=== PATIENT | female | born 1985 | race Two or more races ===

== ENCOUNTER → 2020-11-05 10:41 | Outpatient (BNVA) | payer MEDICAID, SELFPAY | PROVIDERS: PCP Pediatrics Pediatric Endocrinology; Visit Provider Advanced Practice Midwife | DX: Z76.89 Persons encountering health services in other specified circumstances (principal) ==

== ENCOUNTER → 2021-02-03 15:17 | Outpatient (BNVA) | payer MEDICAID, SELFPAY | PROVIDERS: PCP Internal Medicine; Visit Provider Advanced Practice Midwife | DX: Z30.41 Encounter for surveillance of contraceptive pills (principal) | CPT/HCPCS: 99212 ==

== ENCOUNTER 2021-03-11 15:03 | Outpatient (REF) | payer MEDICAID, SELFPAY ==
[2021-03-12 01:47] LABS: CT PCR NOT DETECTED (Not Detect.); NG PCR NOT DETECTED (Not Detect.)
== END 2021-03-11 15:04 | disposition home or self-care (01) ==
LOC: HO.LAB 15:03
PROVIDERS: PCP Internal Medicine; Visit Provider Advanced Practice Midwife
DX: Z01.419 Encounter for gynecological examination (general) (routine) without abnormal findings (principal); Z11.3 Encounter for screening for infections with a predominantly sexual mode of transmission; Z20.2 Contact with and (suspected) exposure to infections with a predominantly sexual mode of transmission
CPT/HCPCS: 87491; 87591

== ENCOUNTER → 2022-03-15 13:21 | Outpatient (BNVA) | payer MEDICAID, SELFPAY | PROVIDERS: PCP Internal Medicine; Visit Provider Advanced Practice Midwife | DX: Z13.89 Encounter for screening for other disorder (principal) ==

== ENCOUNTER 2023-03-17 14:18 | Outpatient (REF) | payer MEDICAID, SELFPAY ==
[2023-03-18 01:17] LABS: CT PCR NOT DETECTED (Not Detect.); NG PCR NOT DETECTED (Not Detect.)
[2023-03-18 03:08] LABS: Syphilis Screen Nonreactive (Nonreactive)
[2023-03-18 04:25] LABS: HBc Num1 0.08 S/CO (0.00-0.79); HIV AB/AG Nonreactive (Nonreactive); HIV Num 1 0.06 S/CO (0.00-0.99); Hepatitis B Core Antibody Nonreactive (Nonreactive); ~HepC Num1 0.19 S/CO (0.00-0.79); ~Hepatitis C Antibody Nonreactive (Nonreactive)
[2023-03-19 12:05] LABS: BV Int Neg Control Negative (Negative); BV Int Pos Control Positive (Positive)
== END 2023-03-17 14:19 | disposition home or self-care (01) ==
LOC: HO.LAB 14:18
PROVIDERS: PCP Internal Medicine; Visit Provider Advanced Practice Midwife
DX: Z11.4 Encounter for screening for human immunodeficiency virus [HIV] (principal); Z20.2 Contact with and (suspected) exposure to infections with a predominantly sexual mode of transmission; N89.8 Other specified noninflammatory disorders of vagina
CPT/HCPCS: 0353U; 86704; 86780; 86803; 87389; 87480; 87510; 87660

== ENCOUNTER 2023-03-17 15:32 | Outpatient (REF) | payer MEDICAID, SELFPAY | END 2023-03-17 15:33 | disposition home or self-care (01) | LOC: HO.LNP 15:32 | PROVIDERS: Visit Provider Advanced Practice Midwife | DX: Z13.89 Encounter for screening for other disorder (principal) ==

== ENCOUNTER 2023-12-01 10:33 | Outpatient (REF) | payer MEDICAID, SELFPAY ==
[2023-12-01 12:26] LABS: Alanine Aminotransferase 9 U/L (0-31); Albumin Level 4.1 g/dL (3.5-5.0); Alkaline Phosphatase 55 U/L (39-117); Anion Gap 9 (12-20); Aspartate Amino Transferase 15 U/L (5-31); Bilirubin Total 2.2 mg/dL (0.0-1.0); Blood Urea Nitrogen 12 mg/dL (9-16); Carbon Dioxide 27 mmol/L (22-29); Chloride 105 mmol/L (96-108); Cholesterol 170 mg/dL (<200); Estimated Glomerular Filt Rate > 60; Glucose Random 86 mg/dL (60-115); HDL Cholesterol 37 mg/dL (>40); LDL Cholesterol Calculated 119 mg/dL (<100); Potassium 4.2 mmol/L (3.3-5.1); Sodium 137 mmol/L (135-145); Total Protein 7.3 g/dL (6.5-8.0); Triglycerides 72 mg/dL (<150)
[2023-12-01 12:27] LABS: TSH reflex Free T4 0.76 uIU/mL (0.32-4.0); Vitamin D 25-OH Total 14.1 ng/mL (>30)
[2023-12-01 12:29] LABS: HBc Num1 0.23 S/CO (0.00-0.79); HBsAGNum1 0.37 S/CO (0.00-0.99); HIV AB/AG Nonreactive (Nonreactive); HIV Num 1 0.06 S/CO (0.00-0.99); Hepatitis A Antibody IgM 0.13 Index (0-0.79); Hepatitis B Core Antibody Nonreactive (Nonreactive); Hepatitis B Surface Antigen Negative (Negative); ~HepC Num1 0.17 S/CO (0.00-0.79); ~Hepatitis A Antibody IgM Nonreactive (Nonreactive); ~Hepatitis B Surface Antibody REACTIVE (Nonreactive); ~Hepatitis C Antibody Nonreactive (Nonreactive)
[2023-12-01 12:39] LABS: Reflex LDLD? No
[2023-12-04 09:29] LABS: TS Negative Control Passed; TS Panel A 0; TS Panel B 0; TS Positive Control Passed; TSpotTB Negative (Negative)
[2023-12-05 13:54] LABS: RPR Rapid Plasma Reagin NON-REACTIVE (NON-REACTIVE)
== END 2023-12-01 10:34 | disposition home or self-care (01) ==
LOC: HO.HHCL 10:33
PROVIDERS: Visit Provider Internal Medicine
DX: Z00.00 Encounter for general adult medical examination without abnormal findings (principal); Z11.4 Encounter for screening for human immunodeficiency virus [HIV]; Z11.1 Encounter for screening for respiratory tuberculosis; J45.20 Mild intermittent asthma, uncomplicated; H91.91 Unspecified hearing loss, right ear; F17.200 Nicotine dependence, unspecified, uncomplicated
CPT/HCPCS: 36415; 80053; 80061; 82306; 84443; 86481; 86592; 86704; 86706; 86709; 86803; 87340; 87389

== ENCOUNTER 2024-01-12 09:37 | Outpatient (AMB) | payer MEDICAID, SELFPAY ==
--- NOTE | 2024-01-12 09:44 | A.OFFVIS_ITS ---
Intake Vital Signs 01/12/24 09:46 Height 4 ft 10.5 in Weight 216 lb BMI 44.4 BP 110/70 Intake Visit Reasons: AUB Intake Note: pt c/o irreg bleeding from 11/29 to 12/23 then started again 01/08 Manufacturing Coordinator: Manufacturing Coordinator Present (Johana) Allergies No Known Allergies [No Known Allergies*] Allergy (Verified 01/12/24 09:46) Is last menstrual period known: Yes Last menstrual period: 01/09/24 HPI HPI Comments History of Present Illness Details Patient is here today with some breakthrough bleeding currently taking progesterone only pills. She reports the pharmacy was out of stock on the pills and was not able to start it on time. She has not been sexually active since last April. Urine test is negative today. Current tobacco user. [facility] Medical History Morbid obesity with BMI of 45.0-49.9, adult Surgical History Hx of section Social History Alcohol intake: current Alcohol intake frequency: holidays/special occasions only Patient Tobacco Use Status: Current everyday Tobacco user Cigarettes Per Day: 10 Sexual orientation: Straight/Heterosexual Gender identity: Female Female Reproductive History Menstrual Age of Menarche: 11 Date of last menstrual period: 01/09/24 Total pregnancies: 2 Premature: 3 Number of Living Children: 3 Multiple births: 1 Date of last pap smear: 09/11/19 (neg pap and hpv) History of STI: Yes (hx Trich) Review of Systems Const All systems reviewed & are unremarkable except as noted in HPI and below Physical Exam Vital Signs: Last Vital Signs BP 110/70 01/12/24 09:46 BMI result Body Mass Index 44.4 Const General: cooperative, healthy appearing and no acute distress Orientation/consciousness: patient oriented x3 GI Inspection: Yes normal to inspection Palpation (GI): Soft to palpation and Other GI palpation findings present (Nontender) Rectal Exam - Female: visual inspection normal General: Yes bladder normal to palpation External Female Exam: normal appearance of the urethra Speculum Exam - Vagina: normal appearance of the vagina, normal palpation, normal vaginal discharge and vaginal bleeding (Small amount ) Speculum Exam - Cervix: normal appearance of the cervix and normal palpation Bimanual exam- vagina & uterus: normal bimanual exam, normal palpation, uterine size normal, bladder normal to palpation, normal palpation, uterine shape normal and non-tender Bimanual Exam- Adnexa, other: normal adnexae OB/external & speculum: vaginal bleeding (Small amount ) Neuro General: patient oriented x3 Results AMB Test Urine AMB Test Urine Negative Last Edit by DARELL Cherry on 01/12/24 09:57 Results Reviewed Results Reviewed: Laboratory Last Values [facility] Clinic Negative 01/12/24 09:56 Assessment & Plan Assessment & Plan (1) Breakthrough bleeding on control pills: Code(s): N92.1 - Excessive and frequent menstruation with irregular cycle (2) Possible exposure to STD: Code(s): Z20.2 - Contact with and (suspected) exposure to infections with a predominantly sexual mode of transmission (3) Counseling for control regarding intrauterine device (IUD): Code(s): Z30.09 - Encounter for other general counseling and advice on contraception Plan Discussed: Breakthrough bleeding is common if there is a skipping progesterone only pills. Advised to consider use of another product for more consistency an example-the Mirena IUD. She reports using it in the past with success and is interested in trying again. Counseled on use. Mirena booklet given. Cervical cultures obtained. Advised to continue on the POP for now and to schedule a Mirena insertion. Encouraged tobacco cessation, discuss other self-help measures to help relax. All of her questions and concerns were addressed to the best of my ability and shared decision making. She is agreeable to the plan of care. This note is constructed using voice recognition software. While every effort has been made to ensure accuracy, meal grinder tender errors may have been included. Orders: Orders AMB HCG Urine Test Today Z32.02 - Encounter for test, result negative CT NG by PCR Today N92.1 - Excessive and frequent menstruation with irregular cycle Bacterial Vaginosis Panel Today N92.1 - Excessive and frequent menstruation with irregular cycle Coding Level of Care Code Est Pt Level 3 (71038) Diagnoses Breakthrough bleeding on control pills N92.1 Possible exposure to STD Z20.2 Counseling for control regarding intrauterine device (IUD) Z30.09
[2024-01-12 09:46] VITALS: BP 110/70; BMI 44.4
== END 2024-01-12 11:06 | disposition home or self-care (01) ==
LOC: HO.HWS 09:37
PROVIDERS: PCP Internal Medicine; Visit Provider Advanced Practice Midwife
DX: N92.1 Excessive and frequent menstruation with irregular cycle (principal); Z20.2 Contact with and (suspected) exposure to infections with a predominantly sexual mode of transmission; Z30.09 Encounter for other general counseling and advice on contraception; Z32.02 Encounter for pregnancy test, result negative
CPT/HCPCS: 99213

== ENCOUNTER 2024-01-12 09:37 | Outpatient (REF) | payer MEDICAID, SELFPAY | END 2024-01-12 09:38 | disposition home or self-care (01) | LOC: HO.LNP 09:37 | PROVIDERS: PCP Internal Medicine; Visit Provider Advanced Practice Midwife | DX: N92.1 Excessive and frequent menstruation with irregular cycle (principal); I10 Essential (primary) hypertension; Z30.09 Encounter for other general counseling and advice on contraception; Z32.02 Encounter for pregnancy test, result negative; Z79.52 Long term (current) use of systemic steroids; Z20.2 Contact with and (suspected) exposure to infections with a predominantly sexual mode of transmission | CPT/HCPCS: 0353U; 81025; 87480; 87510; 87660; 99212 ==

== ENCOUNTER 2024-01-12 10:21 | Outpatient (REF) | payer MEDICAID, SELFPAY ==
[2024-01-13 11:39] LABS: CT PCR NOT DETECTED (Not Detect.); NG PCR NOT DETECTED (Not Detect.)
[2024-01-13 13:55] LABS: BV Int Neg Control Negative (Negative); BV Int Pos Control Positive (Positive)
== END 2024-01-12 10:22 | disposition home or self-care (01) ==
LOC: HO.LAB 10:21
PROVIDERS: Visit Provider Advanced Practice Midwife
DX: N92.1 Excessive and frequent menstruation with irregular cycle (principal)
CPT/HCPCS: 0353U; 87480; 87510; 87660

== ENCOUNTER 2024-02-17 10:15 | Outpatient (REF) | payer MEDICAID, SELFPAY | END 2024-02-17 10:16 | disposition home or self-care (01) | LOC: HO.SH 10:15 | PROVIDERS: PCP Internal Medicine; Visit Provider Internal Medicine | DX: Z01.118 Encounter for examination of ears and hearing with other abnormal findings (principal); H90.41 Sensorineural hearing loss, unilateral, right ear, with unrestricted hearing on the contralateral side | CPT/HCPCS: 92557; 92567; 92588 ==

== ENCOUNTER 2024-03-22 13:21 | Outpatient (REF) | payer MEDICAID, SELFPAY ==
[2024-04-02 22:48] LABS: HPV mRNA E6/E7 rflx Detected (Not Detected)
[2024-04-02 22:52] LABS: HPV 16 RNA NOT DETECTED (NOT DETECTED)
== END 2024-03-22 13:22 | disposition home or self-care (01) ==
LOC: HO.LNP 13:21
PROVIDERS: PCP Internal Medicine; Visit Provider Advanced Practice Midwife
DX: Z01.419 Encounter for gynecological examination (general) (routine) without abnormal findings (principal)
CPT/HCPCS: 87624; 87625; 88142; 99395

== ENCOUNTER 2024-03-22 13:21 | Outpatient (AMB) | payer MEDICAID, SELFPAY ==
[2024-03-22 13:27] VITALS: BP 120/56; BMI 42.9
--- NOTE | 2024-03-22 13:27 | A.OFFVIS_ITS ---
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 Doing well with no concerns. She tries to eat healthy and stays active with exercise. Regular monthly menses, heavy the 3rd day. She is planning to have a Mirena IUD inserted soon. Currently on her cycle today. Currently is not sexually active. She denies vaginal itching and irritation. STD screening up-to-date, negative. Denies family history of breast, ovarian or colon cancer. Last pap smear 2018, negative. [facility] Medical History Morbid obesity with BMI of 45.0-49.9, adult Surgical History Hx of section Social History Alcohol intake: current Alcohol intake frequency: holidays/special occasions only Patient Tobacco Use Status: Current everyday Tobacco user Cigarettes Per Day: 10 Sexual orientation: Straight/Heterosexual Gender identity: Female Female Reproductive History Menstrual Age of Menarche: 11 Duration of menses: 6-7 days Date of last menstrual period: 03/18/24 control method: none Total pregnancies: 3 Full term: 1 Premature: 1 Number of Living Children: 3 Ab induced: 1 Multiple births: 1 Date of last pap smear: 09/12/19 (negative) History of abnormal pap smear: No Review of Systems Const All systems reviewed & are unremarkable except as noted in HPI and below Reports as per HPI Eyes Reports no additional complaints ENT Reports no additional complaints Card Reports no additional complaints Resp Reports no additional complaints GI Reports as per HPI and Reports no additional complaints Reports as per HPI Musc Reports no additional complaints Skin/Breast Reports as per HPI Neuro Reports no additional complaints Psych Reports no additional complaints Endo Reports no additional complaints Kodak/Lymph Reports no additional complaints Aller/Immun Reports no additional complaints Physical Exam Vital Signs: Last Vital Signs BP 120/56 L 03/22/24 13:27 BMI result Body Mass Index 42.9 Const General: cooperative, healthy appearing, no acute distress, well developed and alert Orientation/consciousness: patient oriented x3 HEENT Head: Yes normal to inspection Eyes General: appearance normal, both eyes and all related structures Neck Neck: Yes normal visual inspection Thyroid: Thyroid normal Chest Chest palpation & inspection: normal inspection of the chest and other (no puckering, dimpling, peau de orange, retraction, discharge, masses) Breast/axilla inspection: normal inspection of the breasts Breast/axilla palpation: normal palpation of the breasts Resp Effort & Inspection: normal respiratory effort GI Inspection: Yes normal to inspection Palpation (GI): Soft to palpation Rectal Exam - Female: deferred General: Yes bladder normal to palpation External Female Exam: normal external appearance and normal appearance of the urethra Speculum Exam - Vagina: normal appearance of the vagina, normal palpation, normal vaginal discharge and vaginal bleeding Speculum Exam - Cervix: normal appearance of the cervix and normal palpation Bimanual exam- vagina & uterus: normal bimanual exam, normal palpation, uterine size normal, bladder normal to palpation, normal palpation and non-tender Bimanual Exam- Adnexa, other: no masses OB/external & speculum: vaginal bleeding Skin General skin exam: no rashes or lesions noted Rashes: no rashes Neuro General: patient oriented x3 Cognition (Neuro): normal cognition Extrem General: Yes normal to inspection Psych Attitude: cooperative Thought process: Normal thought process present Assessment & Plan Assessment & Plan (1) Encounter for well woman exam with routine gynecological exam: Code(s): Z01.419 - Encounter for gynecological examination (general) (routine) without abnormal findings Category: Medical (2) Heavy menses: Code(s): N92.0 - Excessive and frequent menstruation with regular cycle Category: Medical Qualifiers: Menorrhagia type: with regular cycle Qualified Code(s): N92.0 - Excessive and frequent menstruation with regular cycle Plan Discussed: Current recommendations for pap smears per ASCCP guidelines. Pap smear obtained today. Breast awareness and periodic breast exams. Maintain a healthy lifestyle including a well balanced diet and routine exercise. Use condoms for STI and prevention. Plan pelvic ultrasound and CBC, recent TSH was normal. Follow up ultrasound results in same day Mirena IUD insert. Counseled regarding pre procedure planning to include eating and drinking before the procedure, taking 3 Advil with food 1 hour before her appointment time. Advised No unprotected intimacy, currently not sexually active. Patient verbalizes understanding and agrees to the plan of care. She was given opportunity to ask questions and all questions were answered to the best of my ability. RTO in one year for annual deep submergence vehicle operator examination. This note is constructed using voice recognition software. While every effort has been made to ensure accuracy, burring machine operator errors may have been included. Orders: Orders US pelvic and transvaginal Today N92.0 - Excessive and frequent menstruation with regular cycle Complete Blood Count no Diff Today N92.0 - Excessive and frequent menstruation with regular cycle Coding Level of Care Code Est Pt Prev Care 18-39y(17698) Diagnoses Encounter for well woman exam with routine gynecological exam Z01.419 Menorrhagia with regular cycle N92.0 Menorrhagia type: with regular cycle
== END 2024-03-22 14:00 | disposition home or self-care (01) ==
LOC: HO.HWS 13:21
PROVIDERS: PCP Internal Medicine; Visit Provider Advanced Practice Midwife
DX: Z01.419 Encounter for gynecological examination (general) (routine) without abnormal findings (principal); N92.0 Excessive and frequent menstruation with regular cycle
CPT/HCPCS: 99395

== ENCOUNTER 2024-03-30 16:23 | Outpatient (REF) | payer MEDICAID, SELFPAY ==
--- NOTE | ~2024-03-30 | US_ITS ---
EXAMINATION: US PELVIS CLINICAL INFORMATION: Excessive and frequent menstruation with irregular cycle LMP: 03/18/2024 COMPARISON: CT scan abdomen and pelvis 02/03/2017 TECHNIQUE: Ultrasound of the pelvis is performed using both transabdominal and transvaginal transducers along with Doppler. Transvaginal imaging is performed due to inadequate visualization transabdominally. FINDINGS: Uterus: The uterus is anteverted and measures 8.0 x 3.8 x 5.0 cm. The myometrium is heterogeneous. No focal fibroid. The endometrial thickness is 0.5 cm.? Trace fluid within the endometrial cavity. Adnexa: Both ovaries are visualized. There is normal color flow to the adnexa. There is no ovarian torsion. There is no pelvic ascites or fluid collection. Right ovary measures 3.2 x 2.2 x 2.1 cm. Volume 8.0 mL. Left ovary measures 3.6 x 1.5 x 2.1 cm. Volume 5.9 mL. US/US pelvic and transvaginal IMPRESSION: 1. Heterogeneous uterus without a focal fibroid. 2. Normal ovaries.
== END 2024-03-30 16:24 | disposition home or self-care (01) ==
LOC: HO.US 16:23
PROVIDERS: PCP Internal Medicine; Visit Provider Advanced Practice Midwife
DX: N92.0 Excessive and frequent menstruation with regular cycle (principal)
CPT/HCPCS: 76830; 76856

== ENCOUNTER 2024-06-13 14:55 | Outpatient (AMB) | payer MEDICAID, SELFPAY ==
--- NOTE | 2024-06-13 14:57 | MHC.OFFVIS ---
Vital Signs 06/13/24 15:00 BP 102/64 Intake Visit Reasons: pap only Die Cutter Diamond: Die Cutter Diamond Present (Johana) Allergies No Known Allergies [No Known Allergies*] Allergy (Verified 06/13/24 14:57) Is last menstrual period known: Yes Last menstrual period: 06/02/24 HPI Comments Details: Patient is here today for repeat Pap smear due to unsatisfactory screen, HPV positive. Currently not menstruating today. Denies any symptoms or pelvic pain. [facility] Medical History Morbid obesity with BMI of 45.0-49.9, adult Surgical History Hx of section Social History Alcohol intake: current Alcohol intake frequency: holidays/special occasions only Patient Tobacco Use Status: Current everyday Tobacco user Cigarettes Per Day: 10 Sexual orientation: Straight/Heterosexual Gender identity: Female Female Reproductive History Menstrual Age of Menarche: 11 Date of last menstrual period: 06/02/24 Review of Systems Const All systems reviewed & are unremarkable except as noted in HPI and below Physical Exam Vital Signs: Last Vital Signs BP 102/64 06/13/24 15:00 Const General: cooperative, healthy appearing and no acute distress Orientation/consciousness: patient oriented x3 GI Inspection: Yes normal to inspection Palpation (GI): Soft to palpation and Other GI palpation findings present (Nontender) Rectal Exam - Female: visual inspection normal General: Yes bladder normal to palpation External Female Exam: normal appearance of the urethra Speculum Exam - Vagina: normal appearance of the vagina, normal palpation and normal vaginal discharge Speculum Exam - Cervix: normal appearance of the cervix and normal palpation Bimanual exam- vagina & uterus: normal bimanual exam, normal palpation, uterine size normal, bladder normal to palpation, normal palpation, uterine shape normal, non-tender and other (Bled briskly with Pap) Bimanual Exam- Adnexa, other: normal adnexae Neuro General: patient oriented x3 Assessment & Plan Assessment & Plan (1) Unsatisfactory cervical Papanicolaou smear: Code(s): R87.615 - Unsatisfactory cytologic smear of cervix Plan Discussed: Pap results-unsatisfactory, HPV positive, repeat Pap today. Discussed HPV progression and regression. If unsatisfactory again will need a colposcopy. Follow up plan of care pending results. All of her questions and concerns were addressed to the best of my ability and shared decision making. She is agreeable to the plan of care. Has a annual scheduled. This note is constructed using voice recognition software. While every effort has been made to ensure accuracy, open end spinning operator errors may have been included. Coding Level of Care Code Est Pt Level 3 (56610) Diagnoses Unsatisfactory cervical Papanicolaou smear R87.615
[2024-06-13 15:00] VITALS: BP 102/64
== END 2024-06-13 16:29 | disposition home or self-care (01) ==
PROVIDERS: PCP Internal Medicine; Visit Provider Advanced Practice Midwife
DX: R87.615 Unsatisfactory cytologic smear of cervix (principal)
CPT/HCPCS: 99213

== ENCOUNTER 2024-06-13 14:55 | Outpatient (REF) | payer MEDICAID, SELFPAY ==
[2024-06-21 11:48] LABS: HPV mRNA E6/E7 Detected (Not Detected)
== END 2024-06-13 14:56 | disposition home or self-care (01) ==
LOC: HO.LNP 14:55
PROVIDERS: PCP Internal Medicine; Visit Provider Advanced Practice Midwife
DX: R87.615 Unsatisfactory cytologic smear of cervix (principal); R87.612 Low grade squamous intraepithelial lesion on cytologic smear of cervix (LGSIL)
CPT/HCPCS: 87624; 88175; 99212

== ENCOUNTER 2024-07-25 10:20 | Outpatient (REF) | payer MEDICAID, SELFPAY | END 2024-07-25 10:21 | disposition home or self-care (01) | LOC: HO.LNP 10:20 | PROVIDERS: PCP Internal Medicine; Visit Provider Obstetrics & Gynecology | DX: R87.612 Low grade squamous intraepithelial lesion on cytologic smear of cervix (LGSIL) (principal); Z32.02 Encounter for pregnancy test, result negative | CPT/HCPCS: 57454; 81025; 88300; 88305 ==

== ENCOUNTER 2024-07-25 10:20 | Outpatient (AMB) | payer MEDICAID, SELFPAY ==
[2024-07-25 10:36] VITALS: BMI 42.6
--- NOTE | 2024-07-25 10:36 | A.OFFVIS_ITS ---
Vital Signs 07/25/24 10:36 Height 4 ft 10.5 in Weight 207 lb 3.752 oz BMI 42.6 Intake Visit Reasons: Colposcopy Material Handler Required: No Information Interpreted: non-clinical & clinical Proof Passer: Proof Passer Present (Daphnie LOZOYA) Accompanied by: Self / Same As Patient Allergies No Known Allergies [No Known Allergies*] Allergy (Verified 07/25/24 10:37) HPI Comments Details: Presenting for colposcopy for abnormal Pap showing LSIL HPV E6 E7 positive [facility] Medical History Morbid obesity with BMI of 45.0-49.9, adult Surgical History Hx of section Social History Alcohol intake: current Alcohol intake frequency: holidays/special occasions only Patient Tobacco Use Status: Current everyday Tobacco user Cigarettes Per Day: 10 Sexual orientation: Straight/Heterosexual Gender identity: Female Female Reproductive History Menstrual Age of Menarche: 11 Review of Systems Const All systems reviewed & are unremarkable except as noted in HPI and below Physical Exam Vital Signs: BMI result Body Mass Index 42.6 General: Yes no CVA tenderness External Female Exam: normal external appearance and normal appearance of the urethra Speculum Exam - Vagina: normal appearance of the vagina, normal palpation, no lesions and no masses Speculum Exam - Cervix: normal appearance of the cervix, normal palpation, no lesions, no masses and nontender Bimanual exam- vagina & uterus: normal bimanual exam, normal palpation, uterine size normal, normal palpation, uterine shape normal, No Cervical tenderness present and non-tender Bimanual Exam- Adnexa, other: normal adnexae Back/Spine/Pelvis Back: no CVA tenderness Office Procedures Colposcopy Colposcopy: Pre-Procedure Counseling: Before beginning the procedure, I conducted comprehensive counseling with the patient. We thoroughly discussed the procedure itself, including its details, alternatives, and all associated risks. This included but not limited to the following complications such as bleeding, infection, and injury to the vagina, bladder, and vessels, as well as the potential need for transfusion with all its associated risks. Subsequently, the patient sign the consent. Pap smear result: LSIL/HPV E6 E7 positive. Urine test in office = Negative Procedure: During the procedure, the following steps were performed: A speculum was inserted, and acetic acid was applied. Colposcopy was conducted, allowing visualization of the transformation zone. Acetowhite lesions were identified at the 6+8+11+1 o'clock position. Cervical biopsies were obtained from the 6+8+11+1 o'clock position, followed by an endocervical curettage (ECC). Vaginoscopy of the upper vagina revealed no evidence of aceto-white lesions. Hemostasis was achieved using Monsel solution, and the patient tolerated the procedure well. Post-Procedure Instructions: The patient was advised to promptly contact the office or the after hours answering service or go to the emergency room if experiencing a temperature exceeding 100.4?F, abdominal pain, nausea/vomiting, or bleeding. Additionally, the patient was instructed to abstain from vaginal intercourse and bathtub use. The patient confirmed understanding of these instructions. Discharge Instructions: The patient was instructed to schedule a follow-up appointment in 2 weeks for further evaluation and management. Please note that this note was generated using a voice recognition program, and errors may have occurred during zinc plating machine operator. 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 the false positive/negative rate of a Pap smear as a screening test in detecting cervical cancer and the indication for a diagnostic test -colposcopy, biopsy, endocervical curettage. The patient verbalized understanding and agreed with the plan, all questions answered. Colpo/biopsy/ECC done, see procedure note. Orders: Orders AMB Colposcopy Today R87.612 - Low grade squamous intraepithelial lesion on cytologic smear of cervix (LGSIL) Coding Level of Care Code Procedure Only Diagnoses LGSIL on Pap smear of cervix R87.612 CPT Codes Colposcopy - CPT: 38280-Ogzgeoify of cervix including upper vagina with biopsy and ECC ([id number])
== END 2024-07-25 11:05 | disposition home or self-care (01) ==
PROVIDERS: PCP Internal Medicine; Visit Provider Obstetrics & Gynecology
DX: R87.612 Low grade squamous intraepithelial lesion on cytologic smear of cervix (LGSIL) (principal); Z32.02 Encounter for pregnancy test, result negative
CPT/HCPCS: 57454

== ENCOUNTER 2024-09-11 13:47 | Outpatient (AMB) | payer MEDICAID, SELFPAY ==
--- NOTE | 2024-09-11 13:55 | MHC.OFFVIS ---
Vital Signs 09/11/24 13:56 Height 4 ft 10.5 in Weight 207 lb 3.752 oz BMI 42.6 Intake Visit Reasons: colpo results Rock Wool Applicator: Rock Wool Applicator Present Allergies No Known Allergies [No Known Allergies*] Allergy (Verified 07/25/24 10:37) Is last menstrual period known: Yes Last menstrual period: 08/28/20 Post menopausal: No Patient : No Do you need a note to return to daycare/school/sports/work: Yes (for surgery on tuesday) HPI Comments Details: Presenting post colpo for follow-up. The patient is doing well with no complaints. The pathology showed the following: A. Endocervix, curettage: Tissue did not survive histologic processing. B. Cervix, 1 o'clock, biopsy: Acute and chronic cervicitis with reactive epithelial changes; negative for squamous intraepithelial lesion. C. Cervix, 6 o'clock, biopsy: Low-grade squamous intraepithelial lesion (RADHA 1). D. Cervix, 8 o'clock, biopsy: High-grade squamous intraepithelial lesion (RADHA 2). E. Cervix, 11 o'clock, biopsy: Squamous mucosa with reactive epithelial changes; negative for squamous intraepithelial lesion. COMMENT: Note is made of the patient's history of a previous Pap smear with LGSIL, HPV+ that correlates with the current biopsy material [facility] Medical History Morbid obesity with BMI of 45.0-49.9, adult Surgical History Hx of section Social History Alcohol intake: current Alcohol intake frequency: holidays/special occasions only Patient Tobacco Use Status: Current everyday Tobacco user Cigarettes Per Day: 10 Sexual orientation: Straight/Heterosexual Gender identity: Female Female Reproductive History Menstrual Age of Menarche: 11 Date of last menstrual period: 08/28/20 Total pregnancies: 2 Full term: 2 Review of Systems Card Reports as per HPI and Reports no additional complaints Resp Reports as per HPI and Reports no additional complaints GI Reports as per HPI and Reports no additional complaints Reports as per HPI Physical Exam Vital Signs: BMI result Body Mass Index 42.6 Const General: cooperative, healthy appearing and comfortable Resp Effort & Inspection: normal respiratory effort Auscultation: clear to auscultation bilaterally Percussion: percussion normal Cardio Palpation: normal PMI Rate: regular rate Rhythm: regular rhythm Heart sounds: no murmurs and no rubs Peripheral pulses: Peripheral pulses 2+ throughout GI Inspection: Yes normal to inspection Palpation (GI): Soft to palpation, nontender, no guarding, not rigid and No hepatosplenomegaly present Percussion: Yes normal to percussion Auscultation: normal bowel sounds Rectal Exam - Female: deferred Assessment & Plan Assessment & Plan (1) RADHA II (cervical intraepithelial neoplasia II): Code(s): N87.1 - Moderate cervical dysplasia Category: Medical Plan: Discussed with the patient the pathology results of the colposcopy biopsies & endocervical curettage ( moderate dysplasia-RADHA 2). Discussed with the patient the sensitivity specificity, positive and negative predictive value in detecting cervical cancer in addition discussed the regression, persistence and progression rates. Addition discussed with the patient the risk of progression to cancer and impact of excision procedure on her future . Per ASCCP guidelines, 2 options of management were discussed with the patient including either observation with HPV based screening and colposcopy biopsy at 6 months and 12 months versus a diagnostic excisional procedures, which is the preferred method of management. The patient is concerned more about the progression of RADHA 2 to cancer than the excisional procedure impact on her future and she decided to proceed with a LEEP, possible cone with post cone ECC, all the pros and cons and risks and benefits of the procedure were discussed with the patient, the patient verbalized understanding and agreed with the plan Coding Level of Care Code Est Pt Level 3 (08475) Diagnoses RADHA II (cervical intraepithelial neoplasia II) N87.1
[2024-09-11 13:56] VITALS: BMI 42.6
== END 2024-09-11 14:44 | disposition home or self-care (01) ==
LOC: HO.HWS 13:47
PROVIDERS: PCP Internal Medicine; Visit Provider Obstetrics & Gynecology
DX: N87.1 Moderate cervical dysplasia (principal)
CPT/HCPCS: 99213

== ENCOUNTER → 2024-09-11 13:47 | Outpatient (BNVA) | payer MEDICAID, SELFPAY | PROVIDERS: PCP Internal Medicine; Visit Provider Obstetrics & Gynecology | DX: N87.1 Moderate cervical dysplasia (principal) | CPT/HCPCS: 99212 ==

== ENCOUNTER 2024-09-19 10:55 | Day surgery (SDC) | payer MEDICAID, SELFPAY ==
[2024-09-19 11:23] VITALS: BP 126/76; PULSE 86; RESP 18; TEMP 36.6; O2SAT 98; BMI 40.2
[2024-09-19 11:33] LABS: UPreg QC Valid YES
[2024-09-19 11:35] LABS: Urine Pregnancy NEGATIVE (NEGATIVE)
--- NOTE | 2024-09-19 12:35 | HO.ANESPROP2 ---
Documented by User: Jenny Burgess NP 09/18/24 09:35 HPI - Anesthesia Eval Consult details Narrative: 39yo F for LEEP,poss loop electric excision,poss loop electrical,cone and post endocervical curettage BMI 42 PMFSH Active Problems Active Problems: All Active Problems RADHA II (cervical intraepithelial neoplasia II) (Acute) LGSIL on Pap smear of cervix (Acute) Heavy menses (Acute) Encounter for well woman exam with routine gynecological exam (Acute) Encounter for surveillance of contraceptive pills (Acute) Past Medical History Medical History Morbid obesity with BMI of 45.0-49.9, adult Surgical History Surgical History Hx of section Social History Social History Are you a primary medicare compliance auditor to a significant other at home: No Do you presently have visiting nurse or other home services: No Alcohol intake: current Alcohol intake frequency: holidays/special occasions only Patient Tobacco Use Status: Current everyday Tobacco user Cigarettes Per Day: 7 Substance Use Frequency: Daily Have you been hit, kicked, punched, or otherwise hurt by someone within the past year? If so, by whom?: No Are you DNR?: No Advance Directives: No Advance Directives Information Provided: Yes Recently lost weight without trying: No Nutrition Risks: No Nutritional Risk Patient : No Sexual orientation: Straight/Heterosexual Gender identity: Female Meds Allergies Allergy/AdvReac Type Severity Reaction Status Date / Time No Known Allergies Allergy Verified 07/25/24 10:37 [No Known Allergies*] Home Medications ?Medication ?Instructions ?Recorded ?Confirmed ?Last Taken ?Type No Known Home Meds 06/13/24 06/13/24 Unknown History Assessment and Plan Assessment Anesthesia Assessment: Chart Reviewed Documented by User: Tatum Hebert DO 09/19/24 12:48 HPI - Anesthesia Eval Consult details Narrative: 39yo F for LEEP,poss loop electric excision,poss loop electrical,cone and post endocervical curettage BMI 40 PMFSH Past Medical History Medical History Morbid obesity with BMI of 45.0-49.9, adult Family History Family history of problems with anesthesia: No Surgical History Surgical History Hx of section History of Problems with Anesthesia: No Social History Social History Are you a primary medicare compliance auditor to a significant other at home: No Do you presently have visiting nurse or other home services: No Alcohol intake: current Alcohol intake frequency: holidays/special occasions only Patient Tobacco Use Status: Current everyday Tobacco user Cigarettes Per Day: 7 Substance Use Frequency: Daily Have you been hit, kicked, punched, or otherwise hurt by someone within the past year? If so, by whom?: No Are you DNR?: No Advance Directives: No Advance Directives Information Provided: Yes Recently lost weight without trying: No Nutrition Risks: No Nutritional Risk Patient : No Sexual orientation: Straight/Heterosexual Gender identity: Female Meds Allergies Allergy/AdvReac Type Severity Reaction Status Date / Time No Known Allergies Allergy Verified 07/25/24 10:37 [No Known Allergies*] Home Medications ?Medication ?Instructions ?Recorded ?Confirmed ?Last Taken ?Type No Known Home Meds 06/13/24 06/13/24 Unknown History Exam Exam Date and Time: 09/19/24 1235 Height,Weight and Vital Signs: Height 4 ft 11 in Weight 90.356 kg Vital Signs Temperature 97.8 F 09/19/24 11:23 Pulse Rate 86 09/19/24 11:23 Respiratory Rate 18 09/19/24 11:23 Blood Pressure 126/76 09/19/24 11:23 Pulse Oximetry 98 09/19/24 11:23 Oxygen Delivery Method Room Air 09/19/24 11:23 Temperature 97.8 F 09/19/24 11:23 Pulse Rate 86 09/19/24 11:23 Respiratory Rate 18 09/19/24 11:23 Blood Pressure 126/76 09/19/24 11:23 Pulse Oximetry 98 11/20/24 11:23 Oxygen Delivery Method Room Air 09/19/24 11:23 Airway Mallampati Class: II TM Dist: >3cm Neck ROM: Full Loose/Missing/Broken Teeth: No (patient denies any loose or broken teeth) Heart: S1S2 Lungs: CTAB Assessment and Plan Assessment Anesthesia Assessment: Anesthesia Plan Discussed and Chart Reviewed Final Anesthetic Review Family History of Problems with Anesthesia: No History of Problems with Anesthesia: No NPO: Yes ASA Class: II Final Preanesthetic Review: No Changes in Pt Med Stat, Meds/Allgs Chart Reviewed, Consent Obtained/Reviewed and Anes Risks/Benef Reviewed Patient Risk: Low Procedure Risk: Low Anesthetic Plan Anesthetic Plan: GA and Agree w/ Assess. and Plan Disposition: Standard PACU
--- NOTE | 2024-09-19 12:48 | MHC.SHP ---
Pre-Procedural Eval Section A - 24 Hr Update-Section A only Date of Service: 09/19/24 The patient is an INPATIENT: No Changes since office visit: No Cold of Flu in the past 2 weeks, No New Medical Problems, No Changes in Medication and No Patient answered all questions The patient has been examined within 24 hours of the surgical procedure. The History & Physical has been completed within 30 days and I have reviewed it.: Yes Section B - Complete if H&P > 30 days Chief Complaint: Moderate cervical dysplasia Allergies: Allergies Allergy/AdvReac Type Severity Reaction Status Date / Time No Known Allergies Allergy Verified 07/25/24 10:37 [No Known Allergies*] Plan Diagnosis/Plan: Unchanged I have reviewed the history and physical and performed a pertinent physical examination on my patient. No changes have occurred unless specified. Time Spent With Patient Time: Total time managing care of this patient today ____ minutes.
--- NOTE | 2024-09-19 13:39 | P.OP_ITS ---
Operative Note Operative Note Date of Service: 09/19/24 Narrative: Pre op diagnosis: RADHA 2 Operation: Colposcopy, Loop electrical excision procedure cone, endocervical tissue excision Postop diagnosis: the same Quantitative blood loss: 50 cc Surgeon: Harshil Turner MD, FACOG Personal Lines Sales Rep: None Pathology: Cervical cone, top-hat endo cervical excision Complications: none Anesthesia: GLMA and Para cervical block Procedure: The patient was put in a dorsal lithotomy position, scrubbed and draped in the usual sterile fashion. A speculum was inserted inside the patient's vagina. The cervix is assessed using the colposcope with acetic acid , the lesions were seen, and at least 1 cm of the squamocolumnar junction was observed. 20 x 5 mm size loop was selected based upon the diameter of the lesion. Lugol solution was used to outline the lesions and area of the transformation zone order to be removed 10 cc of xylocaine with epinephrine were injected submucosally into the surface of the cervix (ectocervix) at the 3, 6, 9, and 12 o'clock positions. The electrosurgical generator is set at 30 to 40 encarnacion on blend 1. The loop is carefully passed simultaneously around and under the transformation zone, in order to ensure excising it making sure the lesion is at least 5 mm far from the specimen margins . The loop was allowed to glide through the cervix from one side to the other, allowing the cutting current to divide the tissue. Since there was no tissues on ECC endo cervical disease could be beyond the reach of the loop, additional tissue was excised from this area with a smaller- diameter loop , endo cervical tissue excision was performed Hemostasis is obtained with a Ball electrode or regular tip cautery. At the end, Monsel's solution was applied to the cone bed. The patient tolerated the procedure well and, all instruments were taken out of the patient vaginal cavity, and the patient was transferred to the PACU in stable condition.
--- NOTE | 2024-09-19 13:39 | PM.OP ---
Brief Operative Note Date of Service: 09/19/24 Pre-op diagnosis: RADHA 2 Post-op diagnosis: same Procedure: LEEP CONE Surgeon: Harhsil Turner MD Anesthesia: GLMA and other (Paracervical block) Was an Bus Driver/Monitor used for this Procedure?: No Estimated blood loss (mL): 0 Pathology: other (Cervical cone, endocervix) Condition: stable Disposition: other (Home)
[2024-09-19 13:48] VITALS: BP 134/71; PULSE 90; RESP 16; TEMP 37.2; O2SAT 100
[2024-09-19 13:53] VITALS: BP 135/80; PULSE 88; RESP 16; O2SAT 99
[2024-09-19 13:58] VITALS: BP 145/79; PULSE 89; RESP 16; O2SAT 100
[2024-09-19 14:03] VITALS: BP 132/61; PULSE 85; RESP 16; O2SAT 100
[2024-09-19 14:18] VITALS: BP 132/71; PULSE 83; RESP 16; TEMP 37.2; O2SAT 99
--- OUTSIDE RECORDS SUMMARY | 2024-09-21 14:02 | XMS_ITS | Continuity of Care Document ---
Author Organization [facility] Address [address] [place] [address]- Care Team Providers Care Cephalometric Technician Name Role Phone Not on Staff, PCP Primary Care Physician Unavail able Encounter [facility] Date(s): 09/18/22 - 09/25/22 [facility] [address] [place], [place] [address] Attending Physician: Alin Jean DO Referring Physician: Not on Staff, Referring MD Allergies, Adverse Reactions, Alerts No Known Allergies Medications acetaminophen 500 mg oral tablet 2 tablet = 1,000 mg, By Mouth, Every 6 hours, PRN Pain , Moderate, for 10 days, not to exceed 3 doses per day., # 50 tablet, 0 Refills, Acute 09/28/22 9:55:00 EST, 09/18/22 9:55:00 EST, Tablet, [id number], Partial fill upon patient re... Start Date: 09/18/22 Stop Date: 09/28/22 Status: Ordered ibuprofen 600 mg oral tablet 600 mg, 1, tablet, By Mouth, Every 6 hours, PRN, for 10 days, with food or milk, # 30 tablet, Refills 0, Tot. Refills 0, Acute 09/28/22 9:55:00 EST, pain, 09/18/22 9:55:00 EST, Route to Pharmacy Electronically, [id number], Partial star... Start Date: 09/18/22 Stop Date: 09/28/22 Status: Ordered Problem List Condition Confirmation Course Effective Dates Status Health St [facility] Informant Severe obesity Confirmed Active Vital Signs Most recent to oldest [Reference Range]: 1 Height 148.9 cm (09/18/22 9:39 AM) Weight 101.4 kg (09/18/22 9:39 AM) Oxygen Saturation [94-100 %] 100 % (09/18/22 9:39 AM) Pulse Rate [55-90 bpm] 83 bpm (09/18/22 9:39 AM) Body Mass Index [18.5-24.99 kg/m2] 45.73 kg/m2 *>HHI* (09/18/22 9:39 AM) Blood Pressure [90-138/55-84 mm Hg] 130/ 68mm Hg (09/18/22 9:39 AM) Temperature [96.8-100.4 DegF] 98.4 DegF (09/18/22 9:39 AM) Mode of Delivery (Oxygen) Room air (09/18/22 9:39 AM) Blood pressure sites Arm, right (09/18/22 9:39 AM) Temperature Route Temporal (09/18/22 9:39 AM) Dry Weight 101.4 kg (09/18/22 9:39 AM) Weight Obtained Via Standing scale (09/18/22 9:39 AM) Dry Weight Obtained Via Standing scale (09/18/22 9:39 AM) Note * Reba Byrd: PERFORM, SIGN, VERIFY Event Display: Patient Education/Instruction Authored Date: [id number] [facility] *[facility] Clinical Summary Name SAL SAMUEL Age 37 Years 1985 PCP Not on Staff, PCP PCP Phone Visit Date 09/18/2022 09:29:00 Additional Instructions: Scheduled Appointments?? Future Appointments ?No Future Appointments Scheduled Follow-Up Instructions ?? Diagnosis Medications: Please continue your medications until treatment is completed or stopped by your provider. Discuss any questions related to medications with your provider. New Medications [id number], [address], [place] [id number], [phone] Acetaminophen (acetaminophen 500 mg oral tablet) 2 tab(s) Oral every 6 hours as needed Pain , Moderate for 10 Days. not to exceed 3 doses per day.. Refills: 0. Next Dose: Amoxicillin-Clavulanate (amoxicillin-clavulanate 875 mg-125 mg oral tablet) 1 tab(s) Oral twice a day for 7 Days. with food or milk for ear infection. Refills: 0. Next Dose: Ibuprofen (ibuprofen 600 mg oral tablet) 1 tab(s) Oral every 6 hours as needed pain for 10 Days. with food or milk. Refills: 0. Next Dose: Allergy Info:?? NKA Medications Given This Visit Future Orders ?No future orders Vital Signs Height 148.9 cm Weight 101.4 kg BMI 45.73 kg/m2 Blood Pressure 130 mm Hg/68 mm Hg Temperature 98.4 DegF Pulse Rate 83 bpm Respiratory Rate 02 Sat Mode of Delivery 100 %/Room air You can now view a summary of your hospital visit from the comfort of your home through a free online portal called [employer]. [employer] is a website that allows you to securely view your medical information including discharge summary, medications and follow-up visits. ??You can alsosend a secure electronic message to your doctor???s office to request appointments, renew medications or just ask a question. You can enroll at [email or web address] or register during your next office visit. Disclaimer:?? The information provided is of a general nature and is intended to be used in conjunction with the recommendations and advice of your health care practitioner. ??Every effort has been made to ensure that the information provided is accurate and complete at the time it is provided to you however, as your needs change, or, as new ??information becomes available, different or additional instructions may be required. If you have questions, please consult with your primary care provider or pharmacist, as appropriate. ??This information is not intended to serve as substitution for assessment and evaluation by a qualified health care provider. If you do not have a primary care provider, you may find a [facility] provider by calling [facility] at [phone]. For information about the plan of care including goals and instructions for your diagnosis, please see the patient education orders section of this document. Patient Education Materials?? The content of this educational material or handout may have been modified, supplemented, or adapted from its original content and format to support your individualized medical care. Patient Care team information Care Team Personnel Name: Not on Staff, PCP Position: S Physician (General Medicine) Member Role: PCP Care Team Related Persons Name: JONG HANCOCK
--- OUTSIDE RECORDS SUMMARY | 2024-09-21 14:02 | XMS_ITS | Continuity of Care Document ---
Author Organization [facility] Address [address] [place] [address]- Care Team Providers Care Photocopying Equipment Repairer Name Role Phone Not on Staff, PCP Primary Care Physician Unavail able Encounter [facility] Date(s): 09/18/22 - 10/18/22 [facility] [address] [place], [place] [address] Attending Physician: Deborah Young Admitting Physician: Admtr, Ar8 Referring Physician: Admtr, Ar8 Allergies, Adverse Reactions, Alerts No Known Allergies Problem List Condition Confirmation Course Effective Dates Status Health St atus Informant Severe obesity Confirmed Active Patient Care team information Care Team Personnel Name: Not on Staff, PCP Position: S Physician (General Medicine) Member Role: PCP Care Team Related Persons Name: JONG HANCOCK
== END 2024-09-19 14:38 | disposition home or self-care (01) ==
PROVIDERS: Nurse Practitioner; PCP Internal Medicine; Visit Provider Obstetrics & Gynecology
PROC: 0UBC7ZZ Excision of Cervix, Via Natural or Artificial Opening (ICD-10-PCS; CPT 57522; principal; 2024-09-19 13:00)
DX: N87.0 Mild cervical dysplasia (principal); E66.01 Morbid (severe) obesity due to excess calories; Z68.41 Body mass index [BMI] 40.0-44.9, adult; F17.210 Nicotine dependence, cigarettes, uncomplicated; Z98.890 Other specified postprocedural states
CPT/HCPCS: 57461; 81025; 88307; J1100; J1885; J2003; J2004; J2250; J2371; J2405; J2704; J3010

== ENCOUNTER → 2024-09-19 10:55 | Outpatient (BNV) | payer MEDICAID, SELFPAY | PROVIDERS: PCP Internal Medicine; Visit Provider Obstetrics & Gynecology | DX: N87.1 Moderate cervical dysplasia (principal) | CPT/HCPCS: 57461 ==

== ENCOUNTER 2024-10-04 15:29 | Outpatient (AMB) | payer MEDICAID, SELFPAY ==
[2024-10-04 15:36] VITALS: BP 132/70
--- NOTE | 2024-10-04 15:36 | A.OFFVIS_ITS ---
Vital Signs 10/04/24 15:36 BP 132/70 Intake Visit Reasons: post op Emergency Service Restorer: Emergency Service Restorer Present (Carrie) Accompanied by: Self / Same As Patient Allergies No Known Allergies [No Known Allergies*] Allergy (Verified 10/04/24 15:37) HPI Comments Details: The patient is presenting for follow-up post LEEP cone with post cone ECC. The patient has no complaints. The pathology showed the following: A. Cervix, conization: -Low grade squamous intraepithelial lesion (mild dysplasia, RADHA I). -Ectocervical margin: Positive for dysplasia. -Endocervical margin: Free of dysplasia. -Radial (deep stromal) margin: Free of dysplasia. -Endocervical glands present. -Biopsy site changes present. B. Endocervix, conization: -Endocervical glandular mucosa; negative for dysplasia. Comment: No moderate dysplasia is seen [facility] Medical History Morbid obesity with BMI of 45.0-49.9, adult Surgical History Hx of section Social History Are you a primary pet care worker to a significant other at home: No Do you presently have visiting nurse or other home services: No Alcohol intake: current Alcohol intake frequency: holidays/special occasions only Patient Tobacco Use Status: Current everyday Tobacco user Cigarettes Per Day: 7 Sexual orientation: Straight/Heterosexual Gender identity: Female Female Reproductive History Menstrual Age of Menarche: 11 Review of Systems Const All systems reviewed & are unremarkable except as noted in HPI and below Reports as per HPI and Reports no additional complaints GI Reports no additional complaints Reports no additional complaints Physical Exam Vital Signs: Last Vital Signs BP 132/70 10/04/24 15:36 Assessment & Plan Assessment & Plan (1) RADHA II (cervical intraepithelial neoplasia II): Comment: Status post LEEP cone with RADHA 1 positive margins no evidence of RADHA 2 Code(s): N87.1 - Moderate cervical dysplasia Category: Medical Plan: Discussed with the patient the results the pathology showing, RADHA 1 at the margin with no evidence of residual RADHA 2, high-grade lesion, RADHA 2+, as seen on colposcopic biopsy/ECC pathology. Explained to the patient that a completely negative excisional specimen raises concern that the lesion was missed and therefore should be follow-up. There is a significantly higher risk of recurrence of RADHA 2+ or progression after LEEP Options of treatment in patients include either co testing with co testing/colposcopy in 6 months or repeat excision Discussion about all the pros and cons and risks and benefits of each approach, including risk of recurrence of severe dysplasia were discussed with the patient and the patient decided to proceed with expectant management. Instructions given the patient to schedule 6 months co testing/colposcopy appointment. All questions answered, the patient verbalized understanding, Coding Level of Care Code Est Pt Level 3 (10870) Diagnoses RADHA II (cervical intraepithelial neoplasia II) N87.1
--- OUTSIDE RECORDS SUMMARY | 2024-10-10 04:18 | XMS_ITS | Continuity of Care Document ---
Author Organization [place] - [facility], [facility] Address [address] [place] [address] Care Team Providers Care Mri Special Procedures Technologist Name Role Phone ELIDADUANE RICO Primary Care Provider [phone] Assessment Encounter Date Assessment Date Assessment LastModified by Organization Details LastModified Time 09/11/2024 09/11/2024 Patient's history is consistent with a right sudden sensorineural hearing loss affecting the right ear about 2 years ago which has remained stable ever since. Audiometric testing from [facility] reviewed which shows a primarily low and mid frequency sensorineural hearing loss affecting the right ear only. This is enough of an asymmetry to warrant retrocochlear workup. Recommend MRI scan of the brain and internal auditory canals with gadolinium. We will arrange this for the patient. If the scan is negative I will let the patient know via portal massage. If there are any significant abnormalities, we can arrange telehealth visit to discuss the results. In the meantime I have given her medical clearance to return to her phone counselor at [facility] audiology to discuss amplification options for the right ear. [email or web address] Not available 09/11/2024 11:36:06 Plan of Treatment Reminders Order Date Submit Date Provider Last Modified By Organization Details Last Modified Time Details Appointments Test Results 30 2023 08:30A M KEITH ACOSTA MD Not available Not available Not available Lab None recorded. Referral None recorded. Procedures None recorded. Surgeries None recorded. Imaging MRI, brain + internal auditory canal, w/wo contrast - MRI, BRAIN + INTERNAL AUDITORY CANAL, W/WO CONTRAST [address] [facility] ([facility]), [address], [place], [address], 09/25/2024 16:10:25 Medication Orders None recorded. Patient TargetsNo targets recorded. Patient InstructionsNo instructions recorded. Reason for Referral None Reported. Results Created Date Observation Date Name Description Value Unit Range Abnormal Flag Note LastModifiedBy Organization Detail LastModifiedTime 09/11/20 audio gram No observ ation record ed. [email or web address] Not Available 08/31 14:01:29 09/25/20 24 09/21/2024 [facility] Access ion Number : [id number] lundberg Name: Madhav Bennetta l Record Number : [id number] Date of : 1984 Date of Exam: 2023 Referr ing Physic [place]: Candice Dos Santos re Ear Nose [address] [place] [address] Exam: MR Brain (C-/C+ ) CPT 88765 [facility] (C-/C+ ) CPT 02914 INDICA TION / CLINIC AL QUESTI ON: Reason For Exam: Snsrnr l hear loss, uni, right ear, w unrest r hear cntra side, Clinic al Indica tion: Asymme tric sensor ineura l hearin g loss TECHNI QUE: Multip lanar, multis equenc e MRI of the brain was perfor med with and withou t intrav enous contra st. 19 mL Dotare m intrav enous contra st was admini stered . COMPAR DESTINEY: None. FINDIN GS: IAC: There is no mass or abnorm al enhanc ement in the paralegal internship al audito ry canals or cerebe llopon david angles . Course and calibe r of the 7th and 8th crania l nerves is normal bilate rally. Fluid signal is preser nicci in the inner ear struct ures bilate rally. Brains tem demons trates normal signal . BRAIN and EXTRA- AXIAL SPACES : No signif icant abnorm ality of the visual ized portio ns of the brain and extra- axial spaces . EXTRAC RANIAL SOFT TISSUE S: A nodule is mildly irregu lar shape in the region of the right choana , at the juncti on of the armed guard ior right nasal cavity and nasoph arynx, demons trates mildly T2 hyperi ntense signal , measur ing 1.3 x 1.2 cm. This is outsid e the field- of-vie w on postco ntrast imagin g. Visual ized portio ns of the extrac ranial soft tissue s are otherw ise unrema rkable . BONES: Visual ized marrow signal is preser nicci. IMPRES ALIDA: 1. No retroc ochlea r abnorm ality to explai n the patien t?s sympto ms. 2. 1.3 cm mildly T2 hyperi ntense nodule in the region of the right choana is indete rminat e, as the lesion is slight ly irregu lar in contou r and is mildly lower in signal on T2-wilfrido ghted sequen ce than typica l nasal polyps . Sugges t correl ation with direct inspec tion. A Non-Em ergent action able findin g will be commun icated to the orderi ng or respon sible provid er by the medica l record s depart ment. Receip t of this commun icatio n by the respon sible or orderi ng provid er will be docume nted in [facility] onnect Action able Denny espinal marinaselvin e [place] [id number] 1. Electr onical ly Signed By: Court Horton MD [email or web address] [facility] ([facility]) [address] [place], [address], 10/03/2024 18:04:13 Result Notes None recorded. 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 2105041701783 0 Active 2023 DESIREE DOS SANTOS MD [address] [place] [address], [place], [address] , [facility] - [facility] 4 11:31:48 Sudden idiopathic hearing loss 252395664 Active 2023 DESIREE DOS SANTOS MD [address], [address] [place] [address] - [facility] 11:31:52 Problem Notes None recorded. Procedures Surgical History Date Name Laterality Status Provider Name and Address Organization Details Recorded Time section completed Duane Loya [place] - [facility] 09/11/2024 11:21:15 Imaging Results None recorded. Procedure Notes None recorded. Medical Equipment None Reported. Allergies No known drug allergies Medications Name Sig Start Date Stop Date Status Note LastModified by Organization Details LastModified Time ergocalcife rol (vitamin D2) 1,250 mcg (50,000 unit) capsule active Not Available Not Available Not Available norethindro ne (contracept mary ann) 0.35 mg tablet TAKE 1 TABLET BY MOUTH DAILY NEEDED 09/11 completed Not Available Not Available Not Available Ventolin HFA 90 mcg/actuati on aerosol inhaler INHALE 2 PUFFS BY MOUTH EVERY 6 HOURS NEEDED FOR WHEEZING 09/11 completed Not Available Not Available Not Available Vitals Date Recorded Body height Body weight Provider Name and Address Organization Details Last Updated DateTime 09/11/2024 148.59 cm 30985.44 g Duane Loya [place] - [facility] 09/11/2024 11:08:01 Social History None recorded. Functional Status None recorded. Mental Status None recorded. Family History Nothing Reported. Medical History Condition Response Asthma Y Gynecological HistoryNo gynecological history recorded. Obstetrics History GPAL:G 0 P 0 0 0 0 Past Encounters Encounter ID Performer Location Encounter Start Date Encounter Closed Date Diagnosis/Indication Diagnosis SNOMED-CT Code Diagnosis ICD10 Code [id number] DESIREE DOS SANTOS MD [facility] [address] [place] [address] 09/11/2024 10:51:59 09/11/2024 11:37:03 Sensorineural hearing loss in right ear 8503553927 9100 H90.41 Sudden idi opathic hearing loss 516954854 H91.21 Health Concerns Section Related Observation LastModified by Organization Detai ls LastModified Time None Recorded Concern Status LastModified by Organization Details LastModified Time None Recorded Payers Encounter Date Sequence Insurance Name Policy Number Policy Cifuentes Covered Member ID Cifuentes Member ID Guarantor Name 09/11/2024 1 [place]: [facility] [address] Sharon Bennett [id number] Sharon Bennett Notes Date Note Type Note Provider Name and Address Organization Details Recorded Time 09/11/2024 text/html Patient referred for evaluation of asymmetric hearing loss. Audiogram [facility] previously [facility] showed sensorineural hearing loss affecting the {{right ear greater than left* left ear greater than right}}. Patient {{was* was not}} aware of the asymmetry over the past 2 years. Patient noted periauricular pain on the right, then a sudden change in the hearing in the right ear when she woke up the next morning. She was seen in urgent care and was told there was fluid . The hearing in the right ear has been down ever since. Occasional tinnitus, usually brought on by loud noise exposure. No dizziness at the time or currently. EDSIREE DOS SANTOS MD [address] [place] [address], [id number] - [facility] 09/11/2024 11:37:00 OBGyn Episode No OBEpisode recorded.
--- OUTSIDE RECORDS SUMMARY | 2024-10-10 04:18 | XMS_ITS | Data Portability ---
Author Organization [place] - [facility], Allergy Address [address] [address] Care Team Providers Care Ambulance Dispatcher Name Role Phone DUANE MARRERO Primary Care Provider Assessment Encounter Date Assessment Date Assessment LastModified by Organization Details LastModified Time 09/11/2024 09/11/2024 Patient's history is consistent with a right sudden sensorineural hearing loss affecting the right ear about 2 years ago which has remained stable ever since. Audiometric testing from [facility] reviewed which shows a primarily low and [...] her medical clearance to return to her animal cytologist at [facility] audiology to discuss amplification options for the right ear. [email or web address] Not available 09/11/2024 11:36:06 Plan of Treatment [...] INTERNAL AUDITORY CANAL, W/WO CONTRAST 2023 024 [facility] ([facility]), [address], [place], [address], 09/25/2024 16:10:25 Medication Orders None recorded. Patient TargetsNo targets recorded. Patient InstructionsNo instructions recorded. Reason for Referral None Reported. Results Created Date Observation Date Name Description Value Unit Range Abnormal Flag Note LastModifiedBy Organization Detail LastModifiedTime 09/11/20 audio gram No observ ation record ed. [email or web address] Not Available 08/31 14:01:29 09/25/20 24 09/21/2024 MRI, brain + brain stem, w/wo contr ast [facility] Access ion Number : [id number] Name: Madhav Bennetta huber Record Number : [id number] Date of : 1984 Date of Exam: 2023 Referr ing Physic [place]: Candice Dos Santos re Ear Nose [address] [place] [address] Exam: MR Brain (C-/C+ ) CPT 62582 [facility] ([facility]-/C+ ) CPT 46968 INDICA TION / CLINIC AL QUESTI ON: [...] or abnorm al enhanc ement in the applications intern al audito ry canals or cerebe llopon [...] , at the juncti on of the articulation officer ior right nasal cavity and nasoph arynx, [...] provid er will be docume nted in [facility] onnect Action able melissa Patel e ID [id number] 1. Electr onical ly Signed By: Court Horton MD [email or web address] [facility] ([facility]) [address] [facility], [place], [address], 10/03/2024 18:04:13 Result Notes None recorded. 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 9091459325580 0 Active 2023 DESIREE DOS SANTOS MD 100 [facility] 100, [place], [address] [place] [address] - [facility] 4 11:31:48 Sudden idiopathic hearing loss 200264764 Active 2023 DESIREE DOS SANTOS MD 100 [facility] [address], [address] [place] [address] - [facility] [place] 11:31:52 Problem Notes None recorded. Procedures Surgical History Date Name Laterality Status Provider Name and Address Organization Details Recorded Time section completed Duane Loya [place] - [facility] 09/11/2024 11:21:15 Imaging Results Imaging Date Name Status LastModified by Organiz ation Details LastModified Time 09/11/2024 [facility]ogram [email or web address] n ot available 09/11/2024 14:01:29 09/21/2024 MRI, brain + brain stem, w/wo contrast completed [email or web address] [facility] ([facility]) [address] [place], [address], 10/03/2024 18:04:13 Procedure Notes None recorded. Medical Equipment None [...] Details Last Updated DateTime 09/11/2024 148.59 cm 78189.44 g Duane Loya [place] - [facility] [place] 09/11/2024 11:08:01 Social History None recorded. Functional Status None recorded. Mental Status None recorded. Family History Nothing Reported. Medical History Condition Response Asthma Y Gynecological HistoryNo gynecological history recorded. Obstetrics History GPAL:G 0 P 0 0 0 0 Past Encounters Encounter ID Performer Location Encounter Start Date Encounter Closed Date Diagnosis/Indication Diagnosis SNOMED-CT Code Diagnosis ICD10 Code [id number] DESIREE DOS SANTOS MD [facility] [address] [place] [address] 09/11/2024 10:51:59 09/11/2024 11:37:03 Sensorineural hearing loss in right ear 3879531983 9100 H90.41 Sudden idi opathic hearing loss 270797088 H91.21 Health Concerns Section Related Observation LastModified by Organization Detai ls LastModified Time None Recorded Concern Status LastModified by Organization Details LastModified Time None Recorded Advance Directives Directive None Recorded Payers Encounter Date Sequence Insurance Name Policy Number Policy Cifuentes Covered Member ID Cifuentes Member ID Guarantor Name 09/11/2024 1 [place] [facility] Sharon Bennett [id number] Sharon Bennett Notes Date Note Type Note Provider Name and Address Organization Details Recorded Time 09/11/2024 text/html Patient referred for evaluation of asymmetric hearing loss. [facility] showed sensorineural hearing loss affecting the [...] No dizziness at the time or currently. DESIREE DOS SANTOS MD [address] [place] [address], [place], [address], [facility] - [facility] 09/11/2024 11:37:00 OBGyn Episode No OBEpisode recorded.
== END 2024-10-04 15:50 | disposition home or self-care (01) ==
LOC: HO.HWS 15:29
PROVIDERS: PCP Internal Medicine; Visit Provider Obstetrics & Gynecology
DX: N87.1 Moderate cervical dysplasia (principal)
CPT/HCPCS: 99213

== ENCOUNTER → 2024-10-04 15:29 | Outpatient (BNVA) | payer MEDICAID, SELFPAY | PROVIDERS: PCP Internal Medicine; Visit Provider Obstetrics & Gynecology | DX: N87.1 Moderate cervical dysplasia (principal) | CPT/HCPCS: 99212 ==

== ENCOUNTER 2024-10-10 15:19 | Outpatient (REF) | payer MEDICAID, SELFPAY ==
--- NOTE | 2024-10-11 09:38 | MHC.AU.HA1 ---
Hearing Aid Evaluation Date of Visit: 10/11/24 Historical Information: Description of Hearing: Right ear: moderate SNHL rising to normal hearing Left ear: normal hearing Summary: Sharon returned to discuss hearing aids after receiving medical clearance by Dr Dos Santos. She states he did not find anything significant on her MRI regarding her sudden hearing loss, but has been referred to one of the nose specialists due to another finding. She denies changes in hearing or other otologic symptoms since she was last here. Discussed RICs vs CICs, she does not think she would like the physical sensation of a CIC nor would she like changing batteries. Opted for RUDY with dome, will add earmold if necessary. She has an iPhone she will likely pair with device. Selected Phonak Infinio 50 R [facility]. Patient works at [employer] where it can be extremely noisy (notes her watch often tells her the noise level has exceeded recommended safety limits), so opted for device with rocker Circalit VC. Will contact for fitting once device arrives. Hearing Aid Prescription: Based on the individual?s shared listening needs, communication environments, dexterity, desire for connectivity, and personal preferences, the following prescription for amplification has been made: Right ear: Make, Model, Color: Phonak Audeo I-50 R, champagne Battery Size: Rechargeable Residential Living Assistant/Slim Tube: #1 M Type of Earmold/Dome/CShell/SlimTip: small vented Accessories/Assistive Technology Recommended: Torch Solderer Plan of Care: Patient wishes to proceed hearing aids as prescribed Action Taken/Action Needed: Hearing Instrument Fitting to be scheduled when materials arrive Primary Diagnosis: H90.41 SNHL Unilateral Right Ear, W/Unrestricted Contralateral Hearing Signature: Provider: Claire Martinez, CCC-A
== END 2024-10-10 15:20 | disposition home or self-care (01) ==
LOC: HO.SH 15:19
PROVIDERS: Visit Provider Internal Medicine
DX: Z01.118 Encounter for examination of ears and hearing with other abnormal findings (principal); Z46.1 Encounter for fitting and adjustment of hearing aid; H90.41 Sensorineural hearing loss, unilateral, right ear, with unrestricted hearing on the contralateral side
CPT/HCPCS: 92552; 92590

== ENCOUNTER 2024-10-25 11:57 | Outpatient (REF) | payer MEDICAID, SELFPAY ==
--- OUTSIDE RECORDS SUMMARY | 2024-10-25 11:58 | XMS_ITS | Continuity of Care Document ---
Author Organization [place] - [facility], [facility] Address [address] [place] [address] Care Team Providers Care Hand Singer Name Role Phone ELIDA DUANE Primary Care Provider Assessment Encounter Date Assessment Date Assessment LastModified by Organization Details LastModified Time 10/18/2024 10/18/2024 Patient seen for incidental finding on her MRI scan during workup for sensorineural hearing loss. She denies any nasal obstruction or nasal bleeding MRI showed a nodule that is mildly irregular shape in the region of the right choana, at the junction of the posterior right nasal cavity and nasopharynx, demonstrates mildly T2 hyperintense signal, measuring 1.3 x 1.2 cm. This is outside the bansd-tv-zrrs on postcontrast imaging. Visualized portions of the extracranial soft tissues are otherwise unremarkable. Examination showed mild septal deviation to the left side, 2+ turbinates and nasal endoscopy shows a polypoid lesion sitting on the floor of the nose near the posterior aspect of the right inferior turbinate. There is an attachment to the lateral wall just anterior to the eustachian tube. At this point it appears to be benign but I have suggested removal for definitive diagnosis. We reviewed the risks of bleeding infection recurrence of the lesion and need for additional procedures [email or web address] Not available 10/18/2024 09:04:24 Plan of Treatment Reminders Order Date Submit Date Provider Last Modified By Organization Details Last Modified Time Details Appointments SURGERY 60 2024 11:30A Karsten ACOSTA MD Not available Not available Not available Post Op 2024 04:00P Karsten ACOSTA MD Not available Not available Not available Lab None recorded. Referral None recorded. Procedures None recorded. Surgeries endoscopy , nasal/sin us, surgical, with biopsy, polypecto my or debrideme nt (SURG) 2023 024 [email or web address] Not available 10/18/2024 09:12:39 Imaging None recorded. Medication Orders None recorded. Patient TargetsNo targets recorded. Patient InstructionsNo instructions recorded. Reason for Referral None Reported. Results Created Date Observation Date Name Description Value Unit Range Abnormal Flag Note LastModifiedBy Organization Detail LastModifiedTime 09/25/20 24 09/21/2024 MRI, brain + brain stem, w/wo contr ast [facility] Access ion Number : [id number] Patien t Name: Madhav Bennetta huber Record Number : [id number] Date of : 1984 Date of Exam: 2023 Referr ing Physic [place]: Candice Dos Santos re Ear Nose [address] [facility] [place] [address] Exam: MR Brain (C-/C+ ) CPT 33829 Room Descri ption: [facility] 3.0T MR Brain (C-/C+ ) CPT 09024 INDICA TION / CLINIC AL QUESTI ON: [...] or abnorm al enhanc ement in the technology intern al audito ry canals or cerebe [...] , at the juncti on of the epilepsy physician ior right nasal cavity and nasoph arynx, [...] provid er will be docume nted in [facility] onnect Action able melissa Patel [place] [id number] 1. Electr onical ly Signed By: Court Horton MD [email or web address] [facility] ([facility]) [address] [facility] [place], [address], 10/03/2024 18:04:13 Result Notes None recorded. 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 0208239990562 0 Active 2023 DESIREE DOS SANTOS MD [address] [address], [place], [address] [place] [address] - [facility] 4 11:31:48 Sudden idiopathic hearing loss 044463679 Active 2023 DESIREE DOS SANTOS MD [address] [address], [place], [address], [facility] - [facility] 4 11:31:52 Mass of nasal sinus 9246200010058 0 Active 2023 KEITH ACOSTA MD [address] [facility] [place], [facility] [place], [address], [facility] - [facility] 4 09:04:48 Abnormal findings on diagnostic imaging of skull and head 342364488 Active 2023 KEITH ACOSTA MD [address] [facility] [place], [facility] [place], [address], [facility] - [facility] [place] 4 09:04:58 Lesion of nasal cavity 6260185330834 01550 Active 2023 KEITH ACOSTA MD [address] [facility] [place], [facility] [place], [address], [facility] - [facility] 4 09:05:13 Problem Notes None recorded. Procedures Surgical History Date Name Laterality Status Provider Name and Address Organization Details Recorded Time JMSNasal/Sinus Endoscopy completed KEITH HERNANDEZ MD [address], [address], [facility] 10/18/2024 09:06:54 section completed Duane Loya [place] - [facility] 09/11/2024 11:21:15 Imaging Results None recorded. Procedure [...] Available Vitals Date Recorded Body height Body mass index (BMI) Body weight Provider Name and Address Organization Details Last Updated DateTime 10/18/2024 148.59 cm 41.1 kg/m2 09010.47 g Eliazar Andersen [place] - [facility] 10/18/2024 08:41:46 Social History None recorded. Functional Status None recorded. Mental Status None recorded. Family History Nothing Reported. Medical History Condition Response Allergies/Hayfever N Heart Problems N Anxiety N Tonsil Infections N Emphysema N Migraines N Thyroid Problems N Glaucoma N Depression N COPD N Developmental Delay N Nasal or Sinus Problems N Anemia N Immune System Disorder N Anesthesia Complications N Heart Attack ([place]) N Other Skin Condition N Diabetes N Rhinitis N Bleeding Disorder N Food Allergy N Arthritis N Hearing Loss N Hyperlipidemia N Cancer N Stroke N Dementia N Nasal polyps N Asthma Y Sleep Disorder N GERD/Reflux N High Cholesterol N Liver Disease N Headaches N Fibromyalgia N Hypertension N Speech Delay N Kidney Disease N Gynecological HistoryNo gynecological history recorded. Obstetrics History GPAL:G 0 P 0 0 0 0 Past Encounters Encounter ID Performer Location Encounter Start Date Encounter Closed Date Diagnosis/Indication Diagnosis SNOMED-CT Code Diagnosis ICD10 Code [id number] KEITH ARITA MD [facility] of [address] [address] 10/18/2024 08:22:43 10/18/2024 09:11:26 Mass of nasal sinus 6556329160 9100 R22.0 Abnormal f indings on diagnostic imaging of skull and head 248105124 R93.0 Lesion of nasal cavity 7184461624 12556372 J34.89 Health Concerns Section Related Observation LastModified by Organization Detai ls LastModified Time None Recorded Concern Status LastModified by Organization Details LastModified Time None Recorded Payers Encounter Date Sequence Insurance Name Policy Number Policy Cifuentes Covered Member ID Cifuentes Member ID Guarantor Name 10/18/2024 1 [place]: [facility] Sharon Bennett [id number] Sharon Bennett Notes Date Note Type Note Provider Name and Address Organization Details Recorded Time 10/18/2024 text/html Patient seen for incidental finding on her MRI scan during workup for sensorineural hearing loss. She denies any nasal obstruction or nasal bleedingMRI showed a nodule that is mildly irregular shape in theregion of the right choana, at the junction of the posterior rightnasal cavity and nasopharynx, demonstrates mildly T2 hyperintensesignal, measuring 1.3 x 1.2 cm. This is outside the zauuv-fg-zgye onpostcontrast imaging. Visualized portions of the extracranial softtissues are otherwise unremarkable. KEITH HERNANDEZ MD [address] [place] [address], [address], [facility] - [facility] 10/18/2024 09:07:40 OBGyn Episode No OBEpisode recorded.
--- OUTSIDE RECORDS SUMMARY | 2024-10-25 11:59 | XMS_ITS | Continuity of Care Document ---
Author Organization [place] - [facility], [facility] Address [address] [place] [address] Care Team Providers Care Industrial Waste Inspector Name Role Phone ELIDADUANE RICO Primary Care Provider Assessment Encounter Date Assessment Date Assessment LastModified by Organization Details LastModified Time 09/11/2024 09/11/2024 Patient's history is consistent with a right sudden sensorineural hearing loss affecting the right ear about 2 years ago which has remained stable ever since. Audiometric testing from [facility] reviewed which shows a primarily low [...] her medical clearance to return to her bilingual patient support caseworker at [facility] audiology to discuss amplification options for the right ear. Not available 09/11/2024 11:36:06 Plan of Treatment Reminders Order Date Submit Date Provider Last Modified By Organization Details Last Modified Time Details Appointments SURGERY 60 2024 11:30A M KEITH ACOSTA MD Not available Not available Not available Post Op 2024 04:00P M KEITH ACOSTA MD Not available Not available Not available Lab None recorded. Referral None recorded. Procedures None recorded. Surgeries None recorded. Imaging MRI, brain + internal auditory canal, w/wo contrast - MRI, BRAIN + INTERNAL AUDITORY CANAL, W/WO CONTRAST 2023 024 [facility] ([facility]), [address], [place], [address], 09/25/2024 16:10:25 Medication Orders None recorded. Patient TargetsNo targets recorded. Patient InstructionsNo instructions recorded. Reason for Referral None Reported. Results Created Date Observation Date Name Description Value Unit Range Abnormal Flag Note LastModifiedBy Organization Detail LastModifiedTime 09/11/20 24 audio gram No observ ation record ed. [email or web address] Not Available 08/31 14:01:29 09/25/20 24 09/21/2024 MRI, brain + brain stem, w/wo contr ast [facility] Access ion Number : [id number] Pativielka t Name: Madhav Bennett Medica l Record Number : [id number] Date of : 1984 Date of Exam: 2023 Referr ing Physic [place]: Candice Dos Santos re Ear Nose [address] [place] [address] Exam: MR Brain (C-/C+ ) CPT 68463 [facility] Brain (C-/C+ ) CPT 94879 INDICA TION / CLINIC AL QUESTI ON: [...] or abnorm al enhanc ement in the rn internal medicine al audito ry canals or cerebe llopon [...] , at the juncti on of the business development specialist ior right nasal cavity and nasoph arynx, [...] provid er will be docume nted in [facility] onnect Action able [place] [id number] 1. Electr onical ly Signed By: Court Horton MD [email or web address] [facility] ([facility]) [address] [place], [address], 10/03/2024 18:04:13 Result Notes None recorded. 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 4081315382505 0 Active 2023 DESIREE DOS SANTOS MD [address] [place] [address] [place], [address] , [facility] - [facility] 4 11:31:48 Sudden idiopathic hearing loss 898176235 Active 2023 DESIREE DOS SANTOS MD 100 [facility], [place], [address], [facility] - [facility] 4 11:31:52 Mass of nasal sinus 7011611544935 0 Active 2023 KEITH ACOSTA MD 100 [facility], [address] [facility], [place], [address], [place] - [facility] [place] 4 09:04:48 Abnormal findings on diagnostic imaging of skull and head 338641540 Active 2023 KEITH ACOSTA MD 100 [facility], [address] [facility], [place], [address], [place] - [facility] 4 09:04:58 Lesion of nasal cavity 4439514996746 16472 Active 2023 KEITH ACOSTA MD 100 [facility] [address] [facility], [place], [address], [place] - [facility] [place] 4 09:05:13 Problem Notes None recorded. Procedures Surgical History Date Name Laterality Status Provider Name and Address Organization Details Recorded Time JMSNasal/Sinus Endoscopy completed KEITH HERNANDEZ MD 100 [facility],[address] [address], [place], [address], [facility] - [facility] 10/18/2024 09:06:54 section completed Duane Loya [place] - [facility] 09/11/2024 11:21:15 Imaging Results None recorded. [...] Details Last Updated DateTime 09/11/2024 148.59 cm 62156.44 g Duane Loya [place] - [facility] No se [facility] 09/11/2024 11:08:01 Social History None recorded. Functional [...] Disorder N Anesthesia Complications N Heart Attack ([place]) N Other Skin Condition N Diabetes N Rhinitis N Bleeding Disorder N Food Allergy N Arthritis N Hearing Loss N Hyperlipidemia N Cancer N Stroke N Dementia N Nasal polyps N Asthma Y High Cholesterol N Sleep Disorder N GERD/Reflux N Liver Disease N Headaches N Fibromyalgia N Hypertension N Speech Delay N Kidney Disease N Gynecological HistoryNo gynecological history recorded. Obstetrics History GPAL:G 0 P 0 0 0 0 Past Encounters Encounter ID Performer Location Encounter Start Date Encounter Closed Date Diagnosis/Indication Diagnosis SNOMED-CT Code Diagnosis ICD10 Code [id number] DESIREE DOS SANTOS MD [facility] of [address] [address] 09/11/2024 10:51:59 09/11/2024 11:37:03 Sensorineural hearing loss in right ear 8813396807 9100 H90.41 Sudden idi opathic hearing loss 578930182 H91.21 Health Concerns Section Related Observation LastModified by Organization Detai ls LastModified Time None Recorded Concern Status LastModified by Organization Details LastModified Time None Recorded Payers Encounter Date Sequence Insurance Name Policy Number Policy Cifuentes Covered Member ID Cifuentes Member ID Guarantor Name 09/11/2024 1 [place]: [facility] Sharon Bennett [id number] Sharon Bennett Notes Date Note Type Note Provider Name and Address Organization Details Recorded Time 09/11/2024 text/html Patient referred for evaluation of asymmetric hearing loss. [facility] showed sensorineural hearing loss affecting [...] time or currently. DESIREE DOS SANTOS MD [address] [place] [address], [address], [place] - [facility] 09/11/2024 11:37:00 OBGyn Episode No OBEpisode recorded.
== END 2024-10-25 11:58 | disposition home or self-care (01) ==
LOC: HO.HAP 11:57
PROVIDERS: Visit Provider Internal Medicine
DX: Z46.1 Encounter for fitting and adjustment of hearing aid (principal); H90.41 Sensorineural hearing loss, unilateral, right ear, with unrestricted hearing on the contralateral side
CPT/HCPCS: V5011; V5020; V5241; V5257

== ENCOUNTER 2024-11-16 09:21 | Outpatient (REF) | payer MEDICAID, SELFPAY ==
--- OUTSIDE RECORDS SUMMARY | 2024-11-16 10:12 | XMS_ITS | Continuity of Care Document ---
Author Organization [place] - [facility], [facility] Address [address] [place] [address] Care Team Providers Care Sales Account Executive Name Role Phone ELIDA DUANE Primary Care Provider [phone] Assessment Encounter Date Assessment Date Assessment LastModified [...] x 1.2 cm. This is outside the cnjep-on-dldy on postcontrast imaging. Visualized portions of the [...] my or debrideme nt (SURG) 2023 024 [email or web address] Not available 10/18/2024 09:12:39 Imaging None recorded. Medication Orders None recorded. Patient TargetsNo targets recorded. Patient InstructionsNo instructions recorded. Reason for Referral None Reported. Results Created Date Observation Date Name Description Value Unit Range Abnormal Flag Note LastModifiedBy Organization Detail LastModifiedTime 09/25/20 24 09/21/2024 MRI, brain + brain stem, w/wo contr ast [facility] Access ion Number : [id number] Patien t Name: Madhav Bennetta huber Record Number : [id number] Date of : 1984 Date of Exam: 2023 Referr ing Physic [place]: Candice Dos Santos re Ear Nose [address] [facility] [place] [address] Exam: MR Brain (C-/C+ ) CPT 12733 Room Descri ption: [facility] 3.0T MR Brain (C-/C+ ) CPT 11943 INDICA TION / CLINIC AL QUESTI ON: [...] or abnorm al enhanc ement in the equine intern al audito ry canals or cerebe [...] , at the juncti on of the terrazzo roller ior right nasal cavity and nasoph arynx, [...] provid er will be docume nted in [facility] onnect Action able melissa Patel [place] [id number] 1. Electr onical ly Signed By: Court Horton MD [email or web address] [facility] ([facility]) [address] [facility] [place], [address], 10/03/2024 18:04:13 Result Notes None recorded. 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 9861509768222 0 Active 2023 DESIREE DOS SANTOS MD [address] [address], [place], [address] [place] [address] - [facility] 4 11:31:48 Sudden idiopathic hearing loss 555748208 Active 2023 DESIREE DOS SANTOS MD [address] [address], [place], [address], [facility] - [facility] 4 11:31:52 Mass of nasal sinus 6255584910692 0 Active 2023 KEITH ACOSTA MD [address] [facility] [place], [place], [address], [facility] - [facility] 4 09:04:48 Abnormal findings on diagnostic imaging of skull and head 684796647 Active 2023 KEITH ACOSTA MD [address] [facility] [place], [place], [address], [facility] - [facility] [place] 4 09:04:58 Lesion of nasal cavity 6498050183159 [address]1936 Active 2023 KEITH ACOSTA MD [address] [facility] [place], [place], [address], [facility] - [facility] 4 09:05:13 Problem Notes None recorded. Procedures Surgical History Date Name Laterality Status Provider Name and Address Organization Details Recorded Time JMSNasal/Sinus Endoscopy completed KEITH HERNANDEZ MD [address], [address], [facility] 10/18/2024 09:06:54 section completed Duane Loya [place] - [facility] 09/11/2024 11:21:15 Imaging Results None recorded. Procedure [...] Updated DateTime 10/18/2024 148.59 cm 41.1 kg/m2 60465.47 g Eliazar Andersen [place] - [facility] 10/18/2024 08:41:46 Social History None recorded. Functional [...] Disorder N Anesthesia Complications N Heart Attack ([place]) N Other Skin Condition N Diabetes N [...] Diagnosis/Indication Diagnosis SNOMED-CT Code Diagnosis ICD10 Code Diagnosis Note [id number] KEITH ARITA MD [facility]NT[facility] of [address] [address] 10/18/2024 08:22:43 10/18/2024 09:11:26 Mass of nasal sinus 3476083331 9100 R22.0 Abnormal f indings on diagnostic imaging of skull and head 148610470 R93.0 Lesion of nasal cavity 6728214999 84203180 J34.89 Health Concerns Section Related Observation LastModified by Organization Detai ls LastModified Time None Recorded Concern Status LastModified by Organization Details LastModified Time None Recorded Payers Encounter Date Sequence Insurance Name Policy Number Policy Cifuentes Covered Member ID Cifuentes Member ID Guarantor Name 10/18/2024 1 [place]: [facility] Sharon Bennett [id number] Sharon Bennett Notes Date Note Type Note [...] x 1.2 cm. This is outside the gjerh-dt-gevi onpostcontrast imaging. Visualized portions of the extracranial softtissues are otherwise unremarkable. KEITH HERNANDEZ MD [address] [place] [address], [place], [address], [facility] - [facility] 10/18/2024 09:07:40 OBGyn Episode No OBEpisode recorded.
--- OUTSIDE RECORDS SUMMARY | 2024-11-16 10:13 | XMS_ITS | Continuity of Care Document ---
Author Organization [place] - [facility], [facility] Address [address] [place] [phone] Care Team Providers Care Job Service Consultant Name Role Phone ELIDADUANE RICO Primary Care Provider [phone] Assessment Encounter Date Assessment Date Assessment LastModified by Organization Details LastModified Time 09/11/2024 09/11/2024 Patient's history is consistent with a right sudden sensorineural hearing loss affecting the right ear about 2 years ago which has remained stable ever since. Audiometric testing from [facility] reviewed which shows a primarily low and [...] her medical clearance to return to her railway patrol officer at [facility] audiology to discuss amplification options for the [...] INTERNAL AUDITORY CANAL, W/WO CONTRAST 2023 024 [facility] ([facility]), [address], [place], [address], 09/25/2024 16:10:25 Medication Orders None recorded. Patient TargetsNo targets recorded. Patient InstructionsNo instructions recorded. Reason for Referral None Reported. Results Created Date Observation Date Name Description Value Unit Range Abnormal Flag Note LastModifiedBy Organization Detail LastModifiedTime 09/11/20 24 audio gram No observ ation record ed. [email or web address] Not Available 08/31 14:01:29 09/25/20 24 09/21/2024 MRI, brain + brain stem, w/wo contr ast [facility] te MRI- [facility] Access ion Number : [id number] Pativielka t Name: Madhav Bennett Medica l Record Number : [id number] Date of : 1984 Date of Exam: 2023 Referr ing Physic [place]: Candice Dos Santos re Ear Nose [address] [place] [address] Exam: MR Brain (C-/C+ ) CPT 62874 [facility] (C-/C+ ) CPT 96987 INDICA TION / CLINIC AL QUESTI ON: [...] or abnorm al enhanc ement in the chemistry intern al audito ry canals or cerebe [...] , at the juncti on of the gripper machine operator ior right nasal cavity and nasoph arynx, [...] in [facility] onnect Action able [place] espinal marinaselvin e [place] [id number] 1. Electr onical ly Signed By: Court Horton MD [email or web address] [facility] ([facility]) [address] [place], [address], 10/03/2024 18:04:13 Result Notes None recorded. 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 5071629354546 0 Active 2023 DESIREE DOS SANTOS MD [address] [place] [address] [place], [phone] , [facility] - [facility] 4 11:31:48 Sudden idiopathic hearing loss 373630620 Active 2023 DESIREE DOS SANTOS MD [address] [facility], [place], [address], [facility] - [facility] 4 11:31:52 Mass of nasal sinus 3662171786928 0 Active 2023 KEITH ACOSTA MD [address] [facility], E [facility], [place], [address], [place] - [facility] [place] 4 09:04:48 Abnormal findings on diagnostic imaging of skull and head 256763216 Active 2023 KEITH ACOSTA MD [address] [facility], [address] [facility], [place], [address], [place] - [facility] 4 09:04:58 Lesion of nasal cavity 0894407606975 25958 Active 2023 KEITH ACOSTA MD 100 [facility] E [facility], [place], [address], [place] - [facility] [place] 4 09:05:13 Problem Notes None recorded. Procedures Surgical History Date Name Laterality Status Provider Name and Address Organization Details Recorded Time JMSNasal/Sinus Endoscopy completed KEITH HERNANDEZ MD [address] [facility],[place] [address], [place], [address], [facility] - [facility] 10/18/2024 09:06:54 section completed Duane Loya [place] - [facility] 09/11/2024 11:21:15 Imaging Results None recorded. [...] Details Last Updated DateTime 09/11/2024 148.59 cm 64232.44 g Duane Loya [place] - [facility] 09/11/2024 11:08:01 Social History None recorded. Functional Status None recorded. Mental Status None recorded. Family History Nothing Reported. Medical History Condition Response Allergies/Hayfever N Heart Problems N Anxiety N Tonsil Infections N Emphysema N Migraines N Thyroid Problems N Depression N COPD N Developmental Delay N Glaucoma N Nasal or Sinus Problems N Anemia N Immune System Disorder N Anesthesia Complications N Heart Attack (VT) N Other Skin Condition N Diabetes N Rhinitis N Bleeding Disorder N Food Allergy N Hearing Loss N Arthritis N Hyperlipidemia N Cancer N Stroke N Dementia N Nasal polyps N Asthma Y Sleep Disorder N High Cholesterol N GERD/Reflux N Liver Disease N Headaches N Fibromyalgia N Hypertension N Speech Delay N Kidney Disease N Gynecological HistoryNo gynecological history recorded. Obstetrics History GPAL:G 0 P 0 0 0 0 Past Encounters Encounter ID Performer Location Encounter Start Date Encounter Closed Date Diagnosis/Indication Diagnosis SNOMED-CT Code Diagnosis ICD10 Code Diagnosis Note [id number] DESIREE DOS SANTOS MD [facility] of [address] [phone] 09/11/2024 10:51:59 09/11/2024 11:37:03 Sensorineural hearing loss in right ear [id number] 9100 H90.41 Sudden idi opathic hearing loss 853295949 H91.21 Health Concerns Section Related Observation LastModified by Organization Detai ls LastModified Time None Recorded Concern Status LastModified by Organization Details LastModified Time None Recorded Payers Encounter Date Sequence Insurance Name Policy Number Policy Cifuentes Covered Member ID Cifuentes Member ID Guarantor Name 09/11/2024 1 [place] [facility] Sharon Bennett [id number] Sharon Bennett Notes Date Note Type Note Provider Name and Address Organization Details Recorded Time 09/11/2024 text/html Patient referred for evaluation of asymmetric hearing loss. Audiogram done previously at {{[facility]* [facility]}} showed sensorineural hearing loss [...] time or currently. DESIREE DOS SANTOS MD [address] [place] [address], [phone], [place] - [facility] 09/11/2024 11:37:00 OBGyn Episode No OBEpisode recorded.
== END 2024-11-16 09:22 | disposition home or self-care (01) ==
LOC: HO.HAP 09:21
PROVIDERS: PCP Internal Medicine; Visit Provider Otolaryngology
DX: Z13.89 Encounter for screening for other disorder (principal)

== ENCOUNTER 2025-01-02 11:40 | Outpatient (REF) | payer MEDICAID, SELFPAY ==
[2025-01-02 13:37] LABS: Hematocrit 38.7 % (37.0-47.0); Hemoglobin 13.5 g/dl (12.0-16.0); Mean Corpuscular HGB Conc 34.9 g/dl (31.0-35.0); Mean Corpuscular Hemoglobin 35.1 pg (27.0-33.0); Mean Corpuscular Volume 100.5 fL (80.0-98.0); Mean Platelet Volume 10.5 fL (9.4-12.3); Platelet Count 252 X10*3/uL (160-400); Red Blood Count 3.85 X10*6/uL (4.20-5.50); Red Cell Distribution Width 12.4 % (11.0-16.0); White Blood Count 6.8 X10*3/uL (4.8-10.8)
[2025-01-02 13:49] LABS: HCG Quantitative 9148 mIU/mL
--- OUTSIDE RECORDS SUMMARY | 2025-01-02 14:10 | XMS_ITS | Encounter Summary ---
Author Organization [employer] Address [address] [place] [address] [address] [place] [address] Care Team Providers Care It Data Architect Name Role Phone Daja To MD Primary Care Provider + Encounter Details Date Type Department Care Team (Latest Contact Info) Description 01/25/2022 Abstract [facility] CONVERSIONS Dental, Provider, DDS Social History Tobacco Use Types Packs/Day Years Used Date Smoking Tobacco: Never Assessed Comments Unknown Sex and Gender Information Value Date Recorded Sex Assigned at Female 08/30/2022 10:17 AM EDT Legal Sex Female 10:17 AM EDT Gender Identity Female 08/30/2022 10:17 AM EDT Sexual Orientation Straight 08/30/2022 10 :17 AM EDT documented as of this encounter Plan of Treatment Upcoming Encounters Date Type Department Care Team ( st Contact Info) Description 01/07/2025 2:30 PM EDT Nutrition [facility] DIABETES/NUTRITION [address] [place] [address] Carol Farah, RD [address] [place] [address] 02/25/2025 1:00 PM EDT Office Visit [facility] OPTOMETRY [address] [place] [address] Luke, Abby, OD [address] [place] [address] documented as of this encounter Visit Diagnoses Not on filedocumented in this encounter Care Teams It Data Architect Relationship Specialty Start Date End Date Daja To MD [address] [place] [address] PCP - General Family Medicine 07/12/19 documented as of this encounter
--- OUTSIDE RECORDS SUMMARY | 2025-01-02 14:10 | XMS_ITS | Encounter Summary ---
Author Organization [employer] Address [address] [facility] 7[address] [place] [address] Care Team Providers Care Photography Assistant Name Role Phone Daja To MD Primary Care Provider + Encounter Details Date Type Department Care Team (Latest Contact Info) Description 12/07/2024 Travel Social History Tobacco Use Types Packs/Day Years Used Date Smoking Tobacco: Every Day Cigarettes Smokeless Tobacco: Never Alcohol Use Standard Drinks/Week Comments Not Currently 0 (1 standard drink = 0.6 oz pur e alcohol) oca Housing Stability Answer Date Recorded What is your housing situation today? I have shiela stiles 11/22/[address] you li ve. Do you have problems with any of the following? None of the above 11/22/2023 Food Insecurity Answer Date Recorded Within the past 12 months, y ou worried that your food would run out before you got money to buy more: Never True 11/22/2023 Within the past 12 months,th e food you bought just didn't last and you didn't have enough money to get more: Never True Transportation Answer Date Recorded In the past 12 months, has l ack of transportation kept you from medical appts, meetings, work or from getting things needed for daily living? No 11/22/2023 Utilities Answer Date Recorded In the past 12 months, has t he electric, gas, oil or water company threatened to shut off services in your home? No 11/22/2023 Depression Answer Date Recorded Patient Health Questionnaire-2 Score 0 02/27/2024 Internet Access Answer Date Recorded Internet Access Q1 Yes 11/14/2024 Internet Access Q2 Not on file 11/14/2024 Comments No Sex and Gender Information Value Date Recorded Sex Assigned at Female 08/30/2022 10:17 AM EDT Legal Sex Female 10:17 AM EDT Gender Identity Female 08/30/2022 10:17 AM EDT Sexual Orientation Straight 08/30/2022 10 :17 AM EDT documented as of this encounter Plan of Treatment Upcoming Encounters Date Type Department Care Team (Late st Contact Info) Description 01/07/2025 2:30 PM EDT Nutrition [facility] DIABETES/NUTRITION [address] [place] [address] Carol Farah, PRISCILLA [address] [place] [address] 02/25/2025 1:00 PM EDT Office Visit [facility] OPTOMETRY [address] [place] [address] Luke, Abby, OD [address] [place] [address] documented as of this encounter Visit Diagnoses Not on filedocumented in this encounter Care Teams Photography Assistant Relationship Specialty Start Date End Date Daja To MD [address] [place] [address] PCP - General Family Medicine 07/12/19 documented as of this encounter
--- OUTSIDE RECORDS SUMMARY | 2025-01-02 14:10 | XMS_ITS | Encounter Summary ---
Author Organization [employer] Address [address] [place] [address] 7t [place] [address] Care Team Providers Care Valve Machine Operator Name Role Phone Daja To MD Primary Care Provider + Reason for Referral * Consultation (Routine) - Authorized Specialty Diagnoses / Procedures Referred By Kathryn lundberg Referred To Contact Nutrition Diagnoses Class 3 severe obesity due to excess calories without serious comorbidity with body mass index (BMI) of 40.0 to 44.9 in adult ([facility]) Daja To MD [address] [place] [address] Phone: tel: fax: Referral ID Status Reason Start Date Expiration Date Visits Requested Visits Authorized [id number] Authorized Consult and Treat 12/07/2024 12/07/2025 1 1 Reason for Visit * Reason Comments Hearing Loss Encounter Details Date Type Department Care Team (Latest Contact Info) Description 12/07/2024 9:00 AM EST Office Visit [facility] MEDICINE [address] [place] [phone] Daja To MD [address] [place], [place] [phone] Sensorineural hearing loss (SNHL) of right ear with unrestricted hearing of left ear (Primary Dx); Mild intermittent asthma without complication; Dietary counseling; Exercise counseling; Class 3 severe obesity due to excess calories without serious comorbidity with body mass index (BMI) of 40.0 to 44.9 in adult ([facility]); RADHA III (cervical intraepithelial neoplasia III) Social History Tobacco Use Types Packs/Day Years Used Date Smoking Tobacco: Every Day Cigarettes Smokeless Tobacco: Never Tobacco Cessation:Ready to Q uit: Not Asked; Counseling Given: Not Answered Alcohol Use Standard Drinks/Week Comments Not Currently 0 (1 standard drink = 0.6 oz pur e alcohol) oca Housing Stability Answer Date Recorded What is your housing situation today? I have shielabrian stiles 11/22/[address] you [...] AM EDT documented as of this encounter Last Filed Vital Signs Vital Sign Reading Time Taken Comments Blood Pressure 142/72 12/07/2024 8:45 AM EST Pulse 86 12/07/2024 8:45 AM EST Temperature 36.1 ??C (96.9 ??F) 12/07/2024 8:45 AM ES T Respiratory Rate 20 12/07/2024 8:45 AM EST Oxygen Saturation 100% 12/07/2024 8:45 AM EST Inhaled Oxygen Concentration - - Weight 92.3 kg (203 lb 8 oz) 12/07/2024 8:45 AM EST Height 148.6 cm (4' 10.5 ) 12/07/2024 8:45 AM ES T Body Mass Index 41.81 12/07/2024 8:45 AM EST documented in this encounter Progress Notes * Daja To MD - 12/07/2024 9:00 AM EST SUBJECTIVE: Sharon Bennett is a 39 y.o. year old female who presents for follow up hearing loss. Denies recentillness, injury, or hospitalization. She had LEEP cone with post cone ECC on 08/2024, it showed LSIL (RADHA 2) w POS margins/neg. She is followed by Dr. Nunez and has an appointment on February. She tells me she had ask about hysterectomy in order to avoid recurrent lip biopsies but she was told she was too young for that. Last menstrual period 120, she is not using control and she is not sexually active. She does not want more children. She was seen by ENT and had a hearing aid placed on the right side, she is doing great and has seenthe difference in hearing so far. She tells me that she had an MRI of the sinuses and apparently was found with a nasal polyp (MRI not available at this time). She has not had any recent exacerbations, she smokes 2 to 3 cigarettes/day and she has not had recent flu or COVID immunization. Acute Concerns: Social History Social History Narrative Lives on a second floor apartment with 3 kids ages 10 to 19. 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 Review of Systems Constitutional: Positive for appetite change and unexpected weight change. Negative for chills, fatigue and fever. HENT: Negative for congestion, ear pain, nosebleeds, rhinorrhea, sinus pressure, sore throat and trouble swallowing. Eyes: Negative for pain and discharge. Respiratory: Negative for cough, chest tightness and shortness of breath. Cardiovascular: Negative for chest pain, palpitations and leg swelling. Gastrointestinal: Negative for abdominal pain, blood in stool, constipation, diarrhea and nausea. Endocrine: Negative for polydipsia and polyuria. Genitourinary: Negative for dysuria, frequency, genital sores, pelvic pain and vaginal discharge. Musculoskeletal: Negative for back pain and neck pain. Skin: Negative for rash. Allergic/Immunologic: Negative for environmental allergies. Neurological: Negative for dizziness, seizures, weakness, light-headedness and headaches. Hematological: Negative for adenopathy. Psychiatric/Behavioral: Negative for agitation, behavioral problems, self-injury and suicidal ideas. OBJECTIVE: Vitals: 12/07/24 0845 BP: (!) 142/72 Pulse: 86 Resp: 20 Temp: 96.9 ??F (36.1 ??C) SpO2: 100% Physical Exam HENT: Right Ear: Tympanic membrane and ear canal normal. Left Ear: Tympanic membrane and ear canal normal. Mouth/Throat: Mouth: Mucous membranes are moist. Pharynx: No oropharyngeal exudate or posterior oropharyngeal erythema. Eyes: Pupils: Pupils are equal, round, and reactive to light. Cardiovascular: Rate and Rhythm: Regular rhythm. Pulses: Normal pulses. Heart sounds: Normal heart sounds. No murmur heard. Pulmonary: Breath sounds: Normal breath sounds. Abdominal: General: Bowel sounds are normal. Palpations: Abdomen is soft. Tenderness: There is no abdominal tenderness. Musculoskeletal: General: Normal range of motion. Cervical back: Neck supple. Skin: General: Skin is warm. Neurological: General: No focal deficit present. Mental Status: She is alert and oriented to person, place, and time. Psychiatric: Mood and Affect: Mood normal. Behavior: Behavior normal. Problem List Items Addressed This Visit Mild intermittent asthma Control. Advised to use albuterol as needed asthma attack, advised to quit smoking. She agreed to start using nicotine gum. Declined flu or COVID immunization Class 3 severe obesity due to excess calories without serious comorbidity with body mass index (BMI) of 40.0 to 44.9 in adult ([facility]) Discussed re weight reduction options including exercise, life style modifications, diet. Recommended to decrease soda and sugary beverage consumption, increase protein intake with meals (at least 1 portion of protein with each meal) to assist with satiety, increase dietary fiber Recommended at least 150 min/week of moderate intensity exercise. Wants a referral to dietitian Relevant Orders Referral to Nutrition Therapy Comprehensive Metabolic Panel Lipid Panel with Reflex to Direct LDL Vitamin D, 25-Hydroxy, Total, Immunoassay Hearing loss of right ear - Primary Had hearing aid placed, doing well. RADHA III (cervical intraepithelial neoplasia III) Status post liver biopsy on August 2024, follow-up with Dr. Berman. Follow-up with her in 6 months. Other Visit Diagnoses Dietary counseling Exercise counseling Follow Up: Current Outpatient Medications on File Prior to Visit Medication Sig Dispense Refill albuterol 108 (90 Base) MCG/ACT inhaler Inhale 2 puffs every 6 (six) hours if needed for wheezing. 18 g 0 ergocalciferol (Vitamin D2) 1.25 MG (94302 UT) capsule TAKE 1 CAPSULE(1.25 MG) BY MOUTH 1 TIME EVERY WEEK 12 capsule 1 norethindrone (Micronor) 0.35 MG tablet Take 1 tablet by mouth if needed each day. No current facility-administered medications on file prior to visit. documented in this encounter Miscellaneous Notes * Assessment & Plan Note - Daja To MD - 12/07/2024 2:36 PM EST Associated Problem(s): Hearing loss of right ear Had hearing aid placed, doing well. * Assessment & Plan Note - Daja To MD - 12/07/2024 9:25 AM EST Associated Problem(s): Class 3 severe obesity due to excess calories without serious comorbidity with body mass index (BMI) of 40.0 to 44.9 in adult ([facility]) Discussed re weight reduction options including exercise, life style modifications, diet. Recommended to decrease soda and sugary beverage consumption, increase protein intake with meals (at least 1 portion of protein with each meal) to assist with satiety, increase dietary fiber Recommended at least 150 min/week of moderate intensity exercise. Wants a referral to dietitian * Assessment & Plan Note - Daja To MD - 12/07/2024 9:25 AM EST Associated Problem(s): RADHA III (cervical intraepithelial neoplasia III) Status post liver biopsy on August 2024, follow-up with Dr. Berman. Follow-up with her in 6 months. * Assessment & Plan Note - Daja To MD - 12/07/2024 9:23 AM EST Associated Problem(s): Mild intermittent asthma Control. Advised to use albuterol as needed asthma attack, advised to quit smoking. She agreed to start using nicotine gum. Declined flu or COVID immunization documented in this encounter Plan of Treatment Upcoming Encounters Date Type Department Care Team (Late st Contact Info) Description 01/07/2025 2:30 PM EDT Nutrition [facility] DIABETES/NUTRITION [address] [place] [address] Carol Farah, RD [address] [place] [address] 02/25/2025 1:00 PM EDT Office Visit [facility] OPTOMETRY [address] [place] [address] Abby Butler, OD [address] [place] [address] Scheduled Orders Name Type Priority Associated Diagnoses Orde r Schedule Comprehensive Metabolic Panel Lab Routine Class 3 severe obesity due to excess calories without serious comorbidity with body mass index (BMI) of 40.0 to 44.9 in adult (CMS/HCC) Expected: 03/06/2025 (Approximate), Expires: 12/07/2025 Lipid Panel with Reflex to Direct LDL Lab Routine Class 3 severe obesity due to excess calories without serious comorbidity with body mass index (BMI) of 40.0 to 44.9 in adult ([facility] Expected: 03/06/2025 (Approximate), Expires: 12/07/2025 Vitamin D, 25-Hydroxy, Total, Immunoassay Lab Routine Class 3 severe obesity due to excess calories without serious comorbidity with body mass index (BMI) of 40.0 to 44.9 in adult ([facility] Expected: 03/06/2025 (Approximate), Expires: 12/07/2025 Scheduled Referrals Name Type Priority Associated Diagnoses Orde r Schedule Referral to Nutrition Therapy Outpatient Referral Routine Class 3 severe obesity due to excess calories without serious comorbidity with body mass index (BMI) of 40.0 to 44.9 in adult ([facility] Expected: 12/07/2024 (Approximate), Expires: 12/07/2025 documented as of this encounter Visit Diagnoses Diagnosis Sensorineural hearing loss (SNHL) of right ear with unrestricted hearing of left ear- Primary Mild intermittent asthma without complication Dietary counseling Dietary surveillance and counseling Exercise counseling Class 3 severe obesity due to excess calories without serious comorbidity with body mass index (BMI) of 40.0 to 44.9 in adult ([facility]) RADHA III (cervical intraepithelial neoplasia III) Carcinoma in situ of cervix uteri documented in this encounter Care Teams Valve Machine Operator Relationship Specialty Start Date End Date Daja To MD [address] [place] [address] PCP - General Family Medicine 07/12/19 documented as of this encounter
--- OUTSIDE RECORDS SUMMARY | 2025-01-02 14:10 | XMS_ITS | Data Portability ---
Author Organization [place] - [facility], Allergy Address [address] [address] Care Team Providers Care Icu Staff Nurse Name Role Phone DUANE MARRERO Primary Care Provider Assessment Encounter Date Assessment Date Assessment LastModified by Organization Details LastModified Time 09/11/2024 09/11/2024 Patient's history is consistent with a right sudden sensorineural hearing loss affecting the right ear about 2 years ago which has remained stable ever since. Audiometric testing from [facility] reviewed which shows a primarily low [...] her medical clearance to return to her coat operator at [facility] audiology to discuss amplification options for the right ear. [email or web address] Not available 09/11/2024 11:36:06 10/18/2024 10/18/2024 Patient seen for incidental finding [...] x 1.2 cm. This is outside the [id number] on postcontrast imaging. Visualized portions of the [...] the lesion and need for additional procedures [email or web address] Not available 10/18/2024 09:04:24 12/24/2024 12/24/2024 No evidence of recurrent inflammatory polyps. Suggest saline solution 4 times daily Flonase 2 sprays each nostril once daily and follow-up in 4 months with flexible fiberoptic exam to make sure no recurrence of the polyp along the posterior aspect of the inferior turbinate [email or web address] Not available 12/24/2024 16:14:21 Plan of Treatment Reminders Order Date Submit Date Provider Last Modified By Organization Details Last Modified Time Details Appointments Establish ed 30 2024 03:00P M KEITH ACOSTA MD Not available Not available Not available Lab None recorded. Referral None recorded. Procedures None recorded. Surgeries endoscopy , nasal/sin us, surgical, with biopsy, polypecto my or debrideme nt (SURG) 2023 024 [email or web address] Not available 10/18/2024 09:12:39 Imaging MRI, brain + internal auditory canal, w/wo contrast - MRI, BRAIN + INTERNAL AUDITORY CANAL, W/WO CONTRAST 2023 024 [facility] ([facility]), [address] [facility], [place], [address], 09/25/2024 16:10:25 Medication Orders None recorded. Patient TargetsNo targets recorded. Patient InstructionsNo instructions recorded. Reason for Referral None Reported. Results Created Date Observation Date Name Description Value Unit Range Abnormal Flag Note LastModifiedBy Organization Detail LastModifiedTime 09/11/20 audio gram No observ ation record ed. [email or web address] Not Available 08/31 14:01:29 09/25/20 24 09/21/2024 MRI, brain + brain stem, w/wo contr ast [facility] Access ion Number : [id number] Patien t Name: Madhav Bennett Record Number : [id number] Date of : 1984 Date of Exam: 2023 Referr ing Physic [place]: Candice Dos Santos re Ear Nose [address] [place] [address] Exam: MR Brain (C-/C+ ) CPT 52534 Room Descri ption: [facility] Verio 3.0T MR Brain (C-/C+ ) CPT 24735 INDICA TION / CLINIC AL [facility] ON: [...] or abnorm al enhanc ement in the music industry intern al audito ry canals or cerebe [...] , at the juncti on of the enrobing machine operator ior right nasal cavity and [...] provid er will be docume nted in [facility] onnect Action able Findin melissa espinal e [place] [id number] 1. Electr onical ly Signed By: Court Horton MD [email or web address] [facility] ([facility]) [address] [place], [address], 10/03/2024 18:04:13 Result Notes None recorded. 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 6257838932392 0 Active 2023 DESIREE DOS SANTOS MD [address] [place] [address], [place], [address], [facility] - [facility] 4 11:31:48 Sudden idiopathic hearing loss 695345861 Active 2023 DESIREE DOS SANTOS MD [address] [place] [address], [place], [address], [facility] - [facility] 4 11:31:52 Mass of nasal sinus 8398552071600 0 Active 2023 KEITH ACOSTA MD [address] [place] [address], [place], [address], [facility] - [facility] 4 09:04:48 Abnormal findings on diagnostic imaging of skull and head 256429505 Active 2023 KEITH ACOSTA MD [address] [place] [address], [place], [address], [place] - [facility] 4 09:04:58 Lesion of nasal cavity 8877740465965 76790 Active 2023 KEITH ACOSTA MD [address], [place], [address], [place] - [facility] 4 09:05:13 Benign neoplasm of nose, middle ear and accessory sinuses 135929884 Active 2024 KEITH ACOSTA MD [address], [place], [address], [place] - [facility] 5 16:14:25 Problem Notes None recorded. Procedures Surgical History Date Name Laterality Status Provider Name and Address Organization Details Recorded Time 5 JMSNasal/Sinus Endoscopy completed KEITH HERNANDEZ MD [facility] [place],[address], [address], [facility] - [facility] 12/24/2024 16:13:44 5 Nsl/sins ndsc surg bx polypc completed KEITH HERNANDEZ MD 100 [facility] [place],[address], [address], [facility] - [facility] 11/22/2024 12:51:30 5 Removal of intranasal lesion completed KEITH HERNANDEZ MD 100 [facility] [place],[address], [address], [facility] - [facility] 11/22/2024 12:52:10 4 JMSNasal/Sinus Endoscopy completed KEITH HERNANDEZ MD 100 [facility] [place],[address], [address], [place] - [facility] 10/18/2024 09:06:54 section completed Duane Loya [place] - [facility] 09/11/2024 11:21:15 Imaging Results Imaging Date Name Status LastModified by Organiz ation Details LastModified Time 09/11/2024 [email or web address] n ot available 09/11/2024 14:01:29 09/21/2024 MRI, brain + brain stem, w/wo contrast completed [email or web address] [facility] ([facility]) [address], [place], [address], 10/03/2024 18:04:13 Procedure Notes None recorded. Medical Equipment None Reported. Allergies No known drug allergies Medications Name Sig Start Date Stop Date Status Note LastModified by Organization Details LastModified Time nicotine (polacrilex ) 2 mg gum active Not Available Not Available N ot Available ergocalcife rol (vitamin D2) 1,250 mcg (50,000 [...] Details Last Updated DateTime 09/11/2024 148.59 cm 10391.44 g Duane Loya [place] - [facility] 09/11/2024 11:08:01 Date Recorded Body height Body mass index (BMI) Body weight Provider Name and Address Organization Details Last Updated DateTime 10/18/2024 148.59 cm 41.1 kg/m2 87861.47 g Eliazar Andersen [facility] 10/18/2024 08:41:46 Date Recorded Body height Body mass index (BMI) Body weight Provider Name and Address Organization Details Last Updated DateTime 12/24/2024 148.59 cm 41.1 kg/m2 79944.47 g Donnie Hair [facility] 12/24/2024 15:52:57 Social History None recorded. Functional Status None recorded. Mental Status None recorded. Family History Nothing Reported. Medical History Condition Response Allergies/Hayfever N Heart Problems N Anxiety N Tonsil Infections N Emphysema N Migraines N Thyroid Problems N Glaucoma N Depression N COPD N Developmental Delay N Nasal or Sinus Problems N Anemia N Immune System Disorder N Anesthesia Complications N Heart Attack (OK) N Other Skin Condition N Diabetes N [...] SNOMED-CT Code Diagnosis ICD10 Code Diagnosis Note [id number] DESIREE DOS SANTOS MD [facility] [address] [address] 09/11/2024 10:51:59 09/11/2024 11:37:03 Sensorineural hearing loss in right ear 4858692101 9100 H90.41 Sudden idi opathic hearing loss 723726714 H91.21 [id number] KEITH ARITA MD [facility] [address] [address] 10/18/2024 08:22:43 10/18/2024 09:11:26 Mass of nasal sinus 7043108072 9100 R22.0 Abnormal f indings on diagnostic imaging of skull and head 433575098 R93.0 Lesion of nasal cavity 6355677465 55383498 J34.89 [id number] KEITH ARITA MD [facility] [address] [address] 12/24/2024 15:38:34 12/24/2024 16:20:17 Benign neoplasm of nose, middle ear and accessory sinuses 109349012 D14.0 Health Concerns Section Related Observation LastModified by Organization Detai ls LastModified Time None Recorded Concern Status LastModified by Organization Details LastModified Time None Recorded Advance Directives Directive None Recorded Payers Encounter Date Sequence Insurance Name Policy Number Policy Cifuentes Covered Member ID Cifuentes Member ID Guarantor Name 09/11/2024 1 [place] [facility] Sharon Bennett [id number] Manditidebbi Bennett 10/18/2024 1 [place] [facility] Nilambert Bennett [id number] Niozotiz Bennett 12/24/2024 1 [facility] Sharon Bennett [id number] Sharon Bennett Notes Date Note Type Note Provider Name and Address Organization Details Recorded Time 09/11/2024 text/html Patient referred for evaluation of asymmetric hearing loss. [facility] showed sensorineural hearing loss affecting [...] time or currently. DESIREE DOS SANTOS MD 100 [facility],[address], [address], [facility] 09/11/2024 11:37:00 10/18/2024 text/html Patient seen for incidental finding on her MRI scan during workup for sensorineural hearing loss. She denies any nasal obstruction or nasal bleedingMRI showed a nodule that is mildly irregular shape in theregion of the right choana, at the junction of the posterior rightnasal cavity and nasopharynx, demonstrates mildly T2 hyperintensesignal, measuring 1.3 x 1.2 cm. This is outside the [id number] onpostcontrast imaging. Visualized portions of the extracranial softtissues are otherwise unremarkable. KEITH HERNANDEZ MD 100 [facility],[place] [address], [place], [address], [facility] - [facility] 10/18/2024 09:07:40 12/24/2024 text/html Patient seen in follow-up for excision of a polypoid lesion from the posterior aspect of the right inferior turbinate. Pathology was consistent with an inflammatory polyp. Other than some crusting and blood around the time of the surgery she is doing quite well and breathing is much improved KEITH HERNANDEZ MD [address] [place] [address], [place], [address], [place] - [facility] 12/24/2024 16:15:47 OBGyn Episode No OBEpisode recorded.
--- OUTSIDE RECORDS SUMMARY | 2025-01-02 14:10 | XMS_ITS | Encounter Summary ---
Author Organization [employer] Address [address] [place] [address] [address] [place] [address] Care Team Providers Care Map Clerk Name Role Phone Daja To MD Primary Care Provider + Reason for Visit * Reason Onset Date Comments Appointment Request 10/27/2023 Encounter Details Date Type Department Care Team (Late st Contact Info) Description 10/27/[address] [facility] [address] [place] [address] Daja To MD [address] [place] [address] Appointment Request Social History Tobacco Use Types Packs/Day Years Used Date Smoking Tobacco: Never Assessed Smokeless Tobacco: Current Comments Unknown Sex and Gender Information Value Date Recorded Sex Assigned at Female 08/30/2022 10:17 AM EDT Legal Sex Female 10:17 AM EDT Gender Identity Female 08/30/2022 10:17 AM EDT Sexual Orientation Straight 08/30/2022 10 :17 AM EDT documented as of this encounter Miscellaneous Notes * Telephone Encounter - Salma Ruff - 10/27/2023 11:30 AM EST Tc from pt requesting PE appt with PCP, adjusto writer operator attempted to schedule, no availability for October. documented in this encounter Plan of Treatment Upcoming Encounters Date Type Department Care Team (Late st Contact Info) Description 01/07/2025 2:[address] [facility] DIABETES/NUTRITION [address] [place] [address] Carol Farah, PRISCILLA [address] [place] [address] 02/25/2025 1:00 PM EDT Office Visit [facility] OPTOMETRY [address] [place] [address] Abby Butler, OD [address] [place] [address] documented as of this encounter Visit Diagnoses Not on filedocumented in this encounter Care Teams Map Clerk Relationship Specialty Start Date End Date Daja To MD [address] [place] [address] PCP - General Family Medicine 07/12/19 documented as of this encounter
--- OUTSIDE RECORDS SUMMARY | 2025-01-02 14:10 | XMS_ITS | Encounter Summary ---
Author Organization [employer] Address [address] [place] [address] [address], [place] [address] Care Team Providers Care Learning Disabled Teacher Name Role Phone Daja To MD Primary Care Provider + Reason for Referral * Consultation (Routine) - Closed Specialty Diagnoses / Procedures Referred By Kathryn lundberg Referred To Contact Otolaryngology Diagnoses Sensorineural hearing loss (SNHL) of right ear with unrestricted hearing of left ear Daja To MD [address] [place] [address] Phone: tel: fax: [facility] [address] Phone: tel: fax: Referral ID Status Reason Start Date Expiration Date V isits Requested Visits Authorized [id number] Closed Specialty Services Required 02/27/2024 02/26/2025 6 6 Reason for Visit * Reason Comments Follow-up Encounter Details Date Type Department Care Team (Latest Contact Info) Description 02/27/2024 4:00 PM EDT Office Visit [facility] MEDICINE [address] [place] [address] [phone] Daja To MD [address] [place] [address] [phone] Sensorineural hearing loss (SNHL) of right ear with unrestricted hearing of left ear (Primary Dx); Vitamin D deficiency Social History Tobacco Use Types Packs/Day Years [...] Access Q2 Not on file 11/14/2024 Comments Unknown Sex and Gender Information Value Date Recorded Sex Assigned at Female 08/30/2022 10:17 AM EDT Legal Sex Female 10:17 AM EDT Gender Identity Female 08/30/2022 10:17 AM EDT Sexual Orientation Straight 08/30/2022 10 :17 AM EDT documented as of this encounter Last Filed Vital Signs Vital Sign Reading Time Taken Comments Blood Pressure 130/76 02/27/2024 4:17 PM EDT Pulse 73 02/27/2024 4:17 PM EDT Temperature 37.4 ??C (99.3 ??F) 02/27/2024 4:17 PM ED T Respiratory Rate 18 02/27/2024 4:17 PM EDT Oxygen Saturation 98% 02/27/2024 4:17 PM EDT Inhaled Oxygen Concentration - - Weight 94.9 kg (209 lb 3.2 oz) 02/27/2024 4:17 P M EDT Height 148.6 cm (4' 10.5 ) 02/27/2024 4:17 PM ED T Body Mass Index 42.98 02/27/2024 4:17 PM EDT documented in this encounter Progress Notes * Daja To MD - 02/27/2024 4:00 PM EDT SUBJECTIVE: Sharon Bennett is a 39 y.o. year old female who presents for follow up. Denies recent illness, injury, or hospitalization. Labs on 12/24 showed negative RPR, T-Spot, HIV. Hep-B immune otherwise negative Hepatitis profile. Low Vitamin D levels. Normal CMP, TSH, and lipid profile. Pt had a hearing test on 02/16 that showed decreased sensorineural hearing loss on the right side. LMP was yesterday. She is on OCPs. Acute Concerns: Social History Social History Narrative Lives on a second floor apartment with 3 kids ages 10 to 19. 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 Review of Systems Constitutional: Negative for chills, fatigue and fever. HENT: Positive for hearing loss. Negative for congestion, ear pain, nosebleeds, rhinorrhea, [...] problems, self-injury and suicidal ideas. OBJECTIVE: Vitals: 04/29/24 1617 BP: 130/76 Pulse: 73 Resp: 18 Temp: 99.3 ??F (37.4 ??C) SpO2: 98% Physical Exam HENT: Right Ear: Tympanic membrane [...] normal. Problem List Items Addressed This Visit Endocrine/Metabolic Vitamin D deficiency - advised about exercise, sun exposure for at least 20 minutes per day - start Vitamin D supplementation x 3 months Other Hearing loss of right ear - Primary - refer to ENT - counseled to avoid use of AirPods Relevant Orders Referral to ENT Follow Up: Current Outpatient Medications on File Prior to Visit Medication Sig Dispense Refill albuterol 108 (90 Base) MCG/ACT inhaler Inhale 2 puffs every 6 (six) hours if needed for wheezing. 18 g 0 norethindrone (Micronor) 0.35 MG tablet Take 1 tablet by mouth if needed each day. No current facility-administered medications on file prior to visit. I, Nyla Herbert, am serving as a scribe to document services personally performed by Dr. Daja To, based on the patient's response to questions by provider and providers statements to me. documented in this encounter Miscellaneous Notes * Assessment & Plan Note - Nyla Herbert - 02/27/2024 4:48 PM EDTAssociated Problem(s): Vitamin D deficiency - advised about exercise, sun exposure for at least 20 minutes per day - start Vitamin D supplementation x 3 months * Assessment & Plan Note - Nyla Herbert - 02/27/2024 4:48 PM EDTAssociated Problem(s): Hearing loss of right ear - refer to ENT - counseled to avoid use of AirPods documented in this encounter Plan of Treatment Upcoming Encounters Date Type Department Care Team (Late st Contact Info) Description 01/07/2025 2:30 PM EDT Nutrition [facility] DIABETES/NUTRITION [address] [place] [address] [place] [address] 02/25/2025 1:00 PM EDT Office Visit [facility] OPTOMETRY [address] [place] [address] Luke, Abby, OD [address] [place] [address] Scheduled Referrals Name Type Priority Associated Diagnoses Orde r Schedule Referral to ENT Outpatient Referral Routine Sensorineural hearing loss (SNHL) of right ear with unrestricted hearing of left ear Expected: 02/27/2024 (Approximate), Expires: 02/26/2025 documented as of this encounter Visit Diagnoses Diagnosis Sensorineural hearing loss (SNHL) of right ear with unrestricted hearing of left ear- Primary Vitamin D deficiency documented in this encounter Care Teams Learning Disabled Teacher Relationship Specialty Start Date End Date Daja To MD [address] [place] [address] PCP - General Family Medicine 07/12/19 documented as of this encounter
--- OUTSIDE RECORDS SUMMARY | 2025-01-02 14:11 | XMS_ITS | Clinical Summary ---
Author Organization [employer] Address [address] [place] [address] [address] [place] [address] Care Team Providers Care Assignment Officer Name Role Phone Daja To MD Primary Care Provider + Allergies No known active allergies Medications albuterol 108 (90 Base) MCG/ACT inhaler Inhale 2 puffs every 6 (six) hours if needed for wheezing. 18 g 4 Active norethindrone (Micronor) 0.35 MG tablet Take 1 tablet by mouth if needed each day. 4 Active ergocalciferol (Vitamin D2) 1.25 MG (65141 UT) capsule TAKE 1 CAPSULE(1.25 MG) BY MOUTH 1 TIME EVERY WEEK 12 capsule 1 4 Active nicotine polacrilex (Nicorette) 2 MG gum Chew 1 each (2 mg) if needed for smoking cessation (nictoine craving). 100 each 5 01/07/20 25 Active Active Problems Problem Noted Date Diagnosed Date DUB (dysfunctional uterine bleeding) 01/02/2025 Assessment & Plan (01/02/2025 11:23 AM EST): Rule out and hypothyroidism. Order labs and FU PRN with me. Class 3 severe obesity due t o excess calories without serious comorbidity with body mass index (BMI) of 40.0 to 44.9 in adult 12/07/2024 Assessment & Plan (12/07/2024 9:25 AM EST): Discussed re weight reduction options including exercise, life style modifications, diet. Recommended to decrease soda and sugary beverage consumption, increase protein intake with meals (at least 1 portion of protein with each meal) to assist with satiety, increase dietary fiber Recommended at least 150 min/week of moderate intensity exercise. Wants a referral to dietitian RADHA III (cervical intraepithelial neoplasia III) 12/07/2024 Assessment & Plan (12/07/2024 9:25 AM EST): Status post liver biopsy on August 2024, follow-up with Dr. Berman. Follow-up with her in 6 months. Vitamin D deficiency 02/27/2024 Assessment & Plan (02/27/2024 5:01 PM EDT): - advised about exercise, sun exposure for at least 20 minutes per day - start Vitamin D supplementation x 3 months Encounter for preventive health examination 10/2023 Assessment & Plan (01/02/2025 11:20 AM EST): Discussed with patient re increase fresh fruit and vegetable intake. Counseled re moderate exercise as tolerated, up to 20min/d Patient feels safe at home. PAP smear UTD, needs to FU with Dr. Turner. Mammogram: N/A due to age, FU next year. Eye exam: UTD, next one due 2025. Lipids/FBS: Overdue, TBO Vaccinations: Influenza Immunization today, declined COVID, will check MMR titers and FU in next appt. Advised to have COVID at earliest convenience. Dental visit: overdue, advised to make an appt at our dental clinic. Assessment & Plan (12/01/2023 10:08 AM EST): Discussed with patient re increase fresh fruit and vegetable intake. Counseled re moderate exercise as tolerated, up to 20min/d Patient feels safe at home. PAP smear due this yr, has appointment 01/2024 at [facility] Eye exam, has upcoming appointment 12/13 Lipids/FBS to be ordered Vaccinations will receive Tdap today, decline flu and Covid IZ Order IZ levels and FU next appointment Dental visit overdue, counseled to make an appointment in our dental clinic Hearing loss of right ear 12/01/2023 Assessment & Plan (12/07/2024 2:36 PM EST): Had hearing aid placed, doing well. Assessment & Plan (02/27/2024 4:48 PM EDT): - refer to ENT - counseled to avoid use of AirPods Assessment & Plan (12/01/2023 10:08 AM EST): Order hearing test and FU w me in 6 wks Immunization declined 12/01/2023 Assessment & Plan (12/01/2023 10:09 AM EST): Decline influenza and Covid IZ Smoker 10/04/2022 Assessment & Plan (12/01/2023 10:07 AM EST): Counseled to quit smoking Macrocytosis 10/04/2022 Acute low back pain 10/04/2022 Initial patient encounter 10/04/2022 Mild intermittent asthma 01/31/2019 Assessment & Plan (12/07/2024 9:23 AM EST): Control. Advised to use albuterol as needed asthma attack, advised to quit smoking. She agreed to start using nicotine gum. Declined flu or COVID immunization Assessment & Plan (12/01/2023 10:08 AM EST): Controlled Decline flu and ovid IZ Counseled to use albuterol PRN and cut down smoking Encounters Date Type Department Care Team Description 01/02/2025 10:30 AM EST Office Visit [facility] [address] [place] [address] Daja To MD Encounter for preventive health examination (Primary Dx); DUB (dysfunctional uterine bleeding); Encounter for immunization 01/02/2025 Travel 12/31/2024 Travel 12/26/2024 Travel 12/25/2024 Telephone [facility] [address] [place] [address] Daja To MD Chart prep 12/21/2024 Patient Outreach [address] [address] Daja To MD Pre-visit Planning (SDOH screening negative and tobacco screening negative) 12/07/2024 9:00 AM EST Office Visit [address] [address] Daja oT MD Sensorineural hearing loss (SNHL) of right ear with unrestricted hearing of left ear (Primary Dx); Mild intermittent asthma without complication; Dietary counseling; Exercise counseling; Class 3 severe obesity due to excess calories without serious comorbidity with body mass index (BMI) of 40.0 to 44.9 in adult ([facility]); RADHA III (cervical intraepithelial neoplasia III) 12/07/2024 Travel 11/30/2024 Travel 11/23/[address] [address] Isabel Bauman [place] Chart prep 11/19/2024 Travel 11/14/2024 Patient Outreach [address] [address] Daja To MD Pre-visit Planning (SDOH screening negative and tobacco screening positive) 11/01/[address] [address] Daja To MD December call 10/16/[address] [address] Daja To MD December recall from Last 3 Months Immunizations Name Administration Dates Next Due Influenza injectable quadriv alent IIV4 with preservative 07/12/2019 Influenza, seasonal, injectable, preservative fr ee 01/02/2025 Moderna Covid-19 Vaccine 12+ 03/11/2021,02/12/20 21 Tdap 12/01/2023 Social History Tobacco Use Types Packs/Day Years [...] Orientation Straight 08/30/2022 10 :17 AM EDT Last Filed Vital Signs Vital Sign Reading Time Taken Comments Blood Pressure 136/71 01/02/2025 10:33 AM EST Pulse 86 01/02/2025 10:33 AM EST Temperature 36.2 ??C (97.1 ??F) 01/02/2025 10:[address] Respiratory Rate 20 01/02/2025 10:33 AM EST Oxygen Saturation 99% 01/02/2025 10:33 AM EST Inhaled Oxygen Concentration - - Weight 98 kg (216 lb 2 oz) 01/02/2025 10:[address] Height 148.6 cm (4' 10.5 ) 01/02/2025 10:[address] Body Mass Index 44.4 01/02/2025 10:33 AM EST Plan of Treatment Upcoming Encounters Date Type Department Care Team (Late st Contact Info) Description 01/07/2025 2:30 PM EDT Nutrition [facility]/NUTRITION [address] [place] [address] Carol Farah, RD [address] [place] [address] 02/25/2025 1:00 PM EDT Office Visit [facility] OPTOM[facility] [address] [place] [address] Luke, Abby, OD [address] [place] [address] Health Maintenance Due Date Last Done Comments Alcohol/Substance Use Screening 1997 Family Planning (PISQ) 2000 Hepatitis B Vaccines (1 of 3 - 19+ 3-dose series) 2004 Pneumococcal Vaccine: Pediatrics (0 to 5 Years) and At-Risk Patients (6 to 49) Years) (1 of 2 - PCV) 2004 COVID-19 Vaccine ( - 2023-2 5 season) 2024 03/11/2021, 02/11/2021 Depression Screening 02/26/2025 02/27/2024, 02/27/2024 SDOH Screening 12/21/2025 12/21/2024 Tobacco Screening 01/02/2026 01/02/2025 Lipid Panel 12/01/2028 12/01/2023 Cervical Cancer Screening 03/22/2029 HPV/Cotest 03/22/2029 03/22/2024, 09/11/2019 Pap Smear 03/22/2029 03/22/2024, 09/11/2019 DTaP/Tdap/Td Vaccines (2 - T d or Tdap) 12/01/2033 12/01/2023 Zoster Vaccines (1 of 2) 2035 RSV Patients and Patients Aged 60 years or older (1 - 1-dose 75+ series) 2060 HIV Screening Completed 12/01/2023, 03/17/2023, 10/19/2019 Hepatitis C Screening Completed 12/01/2023 , 03/17/2023, 10/19/2019 Influenza Vaccine Completed 01/02/2025, 07/12/2019 HIB Vaccines Aged Out No longer eligi ble based on patient's age to complete this topic HPV Vaccines Aged Out No longer eligi ble based on patient's age to complete this topic Hepatitis A Vaccines Aged Out No long er eligible based on patient's age to complete this topic IPV Vaccines Aged Out No longer eligi ble based on patient's age to complete this topic Meningococcal Vaccine Aged Out No simona jabier eligible based on patient's age to complete this topic RSV under 20 months Aged Out No longe r eligible based on patient's age to complete this topic Rotavirus Vaccines Aged Out No longer eligible based on patient's age to complete this topic Procedures Procedure Name Priority Date/Time Associated Diagnosis Comments CBC Routine 01/02/2025 11:42 AM EST HCG, TOTAL, QN Routine 01/02/2025 11:42 AM EST DUB (dysfunctional uterine bleeding) HPV MRNA E6/E7 REFLEX TO HPV 16, 18/45 Routine 03/22/2024 1:55 PM EDT PAP SMEAR Routine 03/22/2024 1:55 PM EDT HEPATITIS PANEL, GENERAL Routine 12/01/2023 10:40 AM EST Encounter for preventive health examination HIV 1/2 ANTIGEN/ANTIBODY, FOURTH GENERATION W/RFL Routine 12/01/2023 10:40 AM EST Encounter for preventive health examination LIPID PANEL WITH REFLEX TO DIRECT LDL Routine 12/01/2023 10:40 AM EST Encounter for preventive health examination Smoker from Last 3 Months or Most Recently Relevant to Health Maintenance Results * (ABNORMAL) CBC (01/02/2025 11:42 AM EST) White Blood Count 6.8 4.8 - 10.8 X10*3/uL [facility] Red Blood Count 3.85(L) 4.20 - 5.50 X10*6/uL [facility] Hemoglobin 13.5 12.0 - 16.0 g/dl [facility] Hematocrit 38.7 37.0 - 47.0 % [facility] Mean Corpuscular Volume 100.5(H) 80.0 - 98.0 fL [facility] Mean Corpuscular Hemoglobin 35.1(H) 27.0 - 33.0 pg [facility] Mean Corpuscular HGB Conc 34.9 31.0 - 35.0 g/dl [facility] Red Cell Distribution Width 12.4 11.0 - 16.0 % [facility] Platelet Count 252 160 - 400 X10*3/uL [facility] Mean Platelet Volume 10.5 9.4 - 12.3 fL [facility] NRBC Pct Auto 0.0 0.0 - 0.2 /100WBC [facility] NRBC Abs Auto 0.000 0.0 - 0.012 X10*3/uL [facility] 01/02/2025 11:4 2 AM EST 01/02/2025 1:10 PM EST us Generic External Data Provider LAB BLOOD ORDERAB LES Final Result [facility] [address] [place] [phone] * (ABNORMAL) HPV mRNA E6/E7 w/Reflex to HPV Genotypes 16, 18/45 (03/22/2024 1:55 PM EDT) HPV nRNA E6/E7 Detected(A ) Not Detected [facility] Comment:Methodology: Transcr iption-Mediated AmplificationThis assay detects E6/E7 viral messenger RNA (mRNA) from 14high-risk HPV types (16,18,31,33,35,39,45,51,52,56,58,59,66,68).Cervical sources are required for HPV testing.If a vaginal source from a patient who has had atotal hysterectomy with removal of cervix wassubmitted, please contact the testing laboratoryfor alternative testing options.For additional information, please refer [email or web address] [facility]/faq/NQT798j3(This link if provided for information/educational purposes only.)THIS TEST WAS PERFORMED AT:Location[address] [place] [phone] PEACOCK MD HPV 16 RNA NOT DETECTED NOT DETECTED [facility] HPV 18/45 RNA NOT DETECTED NOT DETECTED [facility] Comment:Methodology: Transcr iption Mediated AmplificationCervical sources are required for HPV testing.If a vaginal source from a patient who has had atotal hysterectomy with removal of cervix wassubmitted, please contact the testing laboratoryfor alternative testing options.THIS TEST WAS PERFORMED AT:Location[address] [place] [phone] PEACOCK MD 03/22/2024 1:55 PM EDT 03/26/2024 10:00 AM EDT us Generic External Data Provider LAB CYTOLOGY MCKENZIEE IRVING Final Result [facility] [address] [place] [address] [phone] * Pap Smear (03/22/2024 1:55 PM EDT) 03/22/2024 1:55 PM EDT 03/26/2024 10:00 AM EDT Narrative [facility] - 04/16/2024 7:03 AM EDT ----- ------- Name: Sharon Bennett ?Age/Sex: 38/F ? : 1985 Unit#: [id number] ?? Attend Dr: Stella Bryant CNM ?Re03/22/24 ?Status: DEP REF ? Location: HO.LNP ?Disch: ? ----- ------- SPEC : [id number] ?RECD: 03/26/24-999 ? STATUS: ??SOUT ? REQ NUM: [id number] ? MARGARET: 03/22/24-7736 ? SUBM DR: Stella Bryant CNM ? ENTERED: ??03/26/24-0591 ?SP TYPE: Pap Smr ?OTHR DR: Daja To MD ? ORDERED: ??Pap Smear ? Interpretation ?? Unsatisfactory ?? Insufficient cellular material for evaluation due to excessive blood. ? HPV mRNA E6/E7: ?DETECTED ? This assay detects E6/E7 viral messenger RNA (mRNA) from 14 high-risk HPV types (16, 18, ?? 31, 33, 35, 39, 45, 51, 52, 56, 58, 59, 66, 68) ? HPV Type 16 RNA: ?Not Detected ?? HPV Type 18/45 RNA: ? Not Detected ? HPV testing performed by [facility], [place], [place]. ??See reference laboratory ?? portion of the EMR for entire report. ?Clinical Information LMP:03/18/24 Previous PAP test:2019, WNL ? Material Received ?? ThinPrep-Cervical Copies To: ?? Daja To MD ?? [address] [facility] ?? [place] [address] ? Stella Bryant CNM ?? [address] [facility] [address] [facility] ?? [place] [address] ?? [phone] ----- ------- Signed (signature on file) Cecilia Armstrong Steven 04/16/[address] ? ----- ------- ? END OF REPORT ? us Generic External Data Provider LAB CYTOLOGY YASH VILLATORO Final Result [facility] [address] [place] [address] [phone] * (ABNORMAL) Lipid Panel with Reflex to Direct LDL (12/01/2023 10:40 AM EST) Triglycerides 72 <150 mg/dL [facility] Comment:Desirable Triglyceri de: less than 150 mg/dLBorderline High Triglyceride 150-199 mg/dLHigh Triglyceride: 200-499 mg/dLVery High Triglyceride: greater than or equal to 5OO mg/dL Cholesterol 170 <200 mg/dL [facility] Comment:Desirable Cholestero l: less than 200 mg/dLBorderline High Cholesterol: 200-239 mg/dLHigh Cholesterol: greater than 239 mg/dL LDL Cholesterol Calculated 119(H) <100 mg/dL [facility] Comment:Desirable LDL: less than 100 mg/dLNear Optimal/Above Optimal LDL: 110- 129 mg/dLBorderline High LDL: 130-159 mg/dLHigh LDL: 160-189 mg/dLVery High LDL: greater than or equal to 190 mg/dL HDL Cholesterol 37(L) >40 mg/dL [facility] Comment:Desirable HDL: great er than 40 mg/dL Note: This HDL assay may give artificially low results in patients with liver disease. Blood 12/01/2023 10:4 0 AM EST 12/01/2023 11:14 AM EST us Daja To MD LAB BLOOD ORDERABLES Fin al Result [facility] [address] [place] [address] [phone] * Hepatitis Panel, General (12/01/2023 10:40 AM EST) Hepatitis A IgM Nonreactive Nonreactive [facility] Comment:IgM antibodies to BISHOP V not detected; does not exclude earlyacute or recovered HAV infection. ~Hepatitis B Surface Antibody REACTIVE Nonreactive [facility] Comment:REACTIVE: > 11.99 mI U/mL Hepatitis B Core Antibody Nonreactive Nonreactive [facility] Hepatitis C Antibody Nonreactive Nonreactive [facility] Comment:Antibodies to HCV no t detected; does not exclude early acuteHCV infection. Hepatitis B Surface Ag Negative Negative [facility] Blood 12/01/2023 10:4 0 AM EST 12/01/2023 11:14 AM EST Daja To MD LAB BLOOD ORDERABLES Fin al Result Performing Organization Address [facility]/ZIP Co de Phone Number [facility] [address] [place] [address] [phone] * HIV-1/2 Antigen and Antibodies, Fourth Generation, with Reflexes (12/01/2023 10:40 AM EST) [facility] HIV AB/AG Nonreactive Nonreactive [facility] Comment:HIV-1 p24 Ag and/or HIV-1/HIV-2 Ab not detected.A test result that is nonreactive does not exclude thepossibility of exposure to or infection with HIV-1 and/orHIV-2. Nonreactive results in this assay for individualswith prior exposure to HIV-1 and/or HIV-2 may be due toantigen and antibody levels that are below the limit ofdetection of this assay.[employer] HIV Ag/Ab Combo assay result andsupplemental assay results should be interpreted inconjunction with the patient's clinical presentation,history and other laboratory results. If the results areinconsistent with clinical evidence, additional testing issuggested to confirm the result. Blood Venous blood specimen / Unknown 12/01/2023 10:40 AM EST 12/01/2023 11:14 AM EST us Daja To MD LAB BLOOD ORDERABLES Fin al Result Performing Organization Address [facility]/ZIP Co de Phone Number [facility] [address] [place] [phone] from Last 3 Months or Most Recently Relevant to Health Maintenance Insurance [id number] [address] [place] [address] [phone] [address] [place] [phone] Care Teams Assignment Officer Relationship Specialty Start Date End Date Daja To MD [address] [place] [phone] PCP - General Family Medicine 07/12/19
--- OUTSIDE RECORDS SUMMARY | 2025-01-02 14:11 | XMS_ITS | Encounter Summary ---
Author Organization [employer] Address [address] [facility] 7t [place] [address] Care Team Providers Care Professional Tutor Name Role Phone Daja To MD Primary Care Provider + Reason for Visit * Reason Onset Date Comments Chart prep 12/25/2024 Encounter Details Date Type Department Care Team ([facility] st Contact Info) Description 12/25/2024 Telephone [facility] [address] [place], [place] [phone] Daja To MD [address] [place], [place] [phone] Chart prep Social History Tobacco Use Types Packs/Day Years [...] encounter Miscellaneous Notes * Telephone Encounter - Isabel Bauman MA - 12/25/2024 11:08 AM EST Chart Prep Labs: not done Images: done Vaccines due: yes Referrals: complete Screenings: Up to date Overdue care gaps: Up to date documented in this encounter Plan of Treatment Upcoming Encounters Date Type Department Care Team (Late st Contact Info) Description 01/07/2025 2:30 PM EDT Nutrition [facility] DIABETES/NUTRITION [address] [place] [address] Carol Farah, RD [address] [place] [address] 02/25/2025 1:00 PM EDT Office Visit [facility] OPTOMETRY [address] [place] [address] Luke, Abby, OD [address] [place] [address] documented as of this encounter Visit Diagnoses Not on filedocumented in this encounter Care Teams Professional Tutor Relationship Specialty Start Date End Date Daja To MD [address] [place] [address] PCP - General Family Medicine 07/12/19 documented as of this encounter
--- OUTSIDE RECORDS SUMMARY | 2025-01-02 14:11 | XMS_ITS | Encounter Summary ---
Author Organization [employer] Address [address] [place] [address] 7[address] [place] [address] Care Team Providers Care Information Tech Name Role Phone Daja To MD Primary Care Provider + Reason for Visit * Reason Comments Annual Exam Encounter Details Date Type Department Care Team ([facility] st Contact Info) Description 01/02/2025 10:30 AM EST Office Visit [facility] [address] [place], [place] [phone] Daja To MD [address] [place], [place] [phone] Encounter for preventive health examination (Primary Dx); DUB (dysfunctional uterine bleeding); Encounter for immunization Social History Tobacco Use Types Packs/Day Years Used Date Smoking Tobacco: Every Day Cigarettes Smokeless Tobacco: Never Tobacco Cessation:Ready to Q uit: Not Asked; Counseling Given: Not Answered Alcohol Use Standard Drinks/Week Comments Not Currently 0 (1 standard drink = 0.6 oz pur e alcohol) [facility] Housing Stability Answer Date Recorded What is your housing situation today? I have shiela sing 11/22/[address] you li [...] Mass Index 44.4 01/02/2025 10:33 AM EST documented in this encounter Miscellaneous Notes * Assessment & Plan Note - Brea Joy MA - 01/02/2025 11:23 AM EST Associated Problem(s): DUB (dysfunctional uterine bleeding) Rule out and hypothyroidism. Order labs and FU PRN with me. * Assessment & Plan Note - Brea Joy MA - 01/02/2025 11:10 AM EST Associated Problem(s): Encounter for preventive health examination Discussed with patient re increase fresh fruit [...] make an appt at our dental clinic. documented in this encounter Plan of Treatment Upcoming Encounters Date Type Department Care Team (Late st Contact Info) Description 01/07/2025 2:30 PM EDT Nutrition [facility] DIABETES/NUTRITION [address] [place] [address] Carol Farah, RD [address] [place] [address] 02/25/2025 1:00 PM EDT Office Visit [facility] OPTOMETRY [address] [place] [address] Luke, Abby, OD [address] [place] [address] Pending Results Name Type Priority Associated Diagnoses Date /Time hCG, Total, Quantitative Lab Routine DUB (dysfunctional uterine bleeding) 01/02/2025 11:42 AM EST Scheduled Orders Name Type Priority Associated Diagnoses Orde r Schedule TSH W/Reflex to FT4 Lab Routine DUB (dysfunctional uterine bleeding) Expected: 01/02/2025 (Approximate), Expires: 01/02/2026 Measles, Mumps, and Rubella (MMR) Antibodies??(IgG) Panel, Immune Status Lab Routine Encounter for preventive health examination Expected: 01/02/2025 (Approximate), Expires: 01/02/2026 documented as of this encounter Procedures Procedure Name Priority Date/Time Associated Diagnosis Comments HCG, TOTAL, QN Routine 01/02/2025 11:42 AM EST DUB (dysfunctional uterine bleeding) documented in this encounter Visit Diagnoses Diagnosis Encounter for preventive health examination- Primary DUB (dysfunctional uterine bleeding) Other disorder of menstruation and other abnormal bleeding from female genital tract Encounter for immunization documented in this encounter Care Teams Information Tech Relationship Specialty Start Date End Date Daja To MD [address] [place] [address] PCP - General Family Medicine 07/12/19 documented as of this encounter
--- OUTSIDE RECORDS SUMMARY | 2025-01-02 14:11 | XMS_ITS | Continuity of Care Document ---
Author Organization [place] - [facility], [facility] Address [address] [place] [address] Care Team Providers Care Concert Promoter Name Role Phone DAJA MARRERO Primary Care Provider Assessment Encounter Date Assessment Date Assessment LastModified by Organization Details LastModified Time 12/24/2024 12/24/2024 No evidence of recurrent inflammatory polyps. Suggest saline solution 4 times daily Flonase 2 sprays each nostril once daily and follow-up in 4 months with flexible fiberoptic exam to make sure no recurrence of the polyp along the posterior aspect of the inferior turbinate martín Not available 12/24/2024 16:14:21 Plan of Treatment Reminders Order Date Submit Date Provider Last Modified By Organization Details Last Modified Time Details Appointments Establish ed 30 2024 03:00P M KEITH ACOSTA MD Not available Not available Not available Lab None recorded. Referral None recorded. Procedures None recorded. Surgeries None recorded. Imaging None recorded. Medication Orders None recorded. Patient TargetsNo targets recorded. Patient InstructionsNo instructions recorded. Reason for Referral None Reported. 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 8267137451645 0 Active 2023 DESIREE COPPOLA MD [address] [place] [address], [place], [address] [facility] [place] - [facility] 11:31:48 Sudden idiopathic hearing loss 638064154 Active 2023 DESIREE COPPOLA MD [address] [place] [address], [place], [address], [place] - [facility] [place] 4 11:31:52 Mass of nasal sinus 3648426973105 0 Active 2023 KEITH ACOSTA MD [address], [place], [address], [place] - [facility] [place] 4 09:04:48 Abnormal findings on diagnostic imaging of skull and head 882591906 Active 2023 KEITH ACOSTA MD [address], [place], [address], [place] - [facility] [place] 4 09:04:58 Lesion of nasal cavity 9691502130468 39744 Active 2023 KEITH ACOSTA MD [address] [facility], [place], [address], [place] - [facility] [place] 4 09:05:13 Benign neoplasm of nose, middle ear and accessory sinuses 337726281 Active 2024 KEITH ACOSTA MD [address] [facility] [address], [place], [address], [place] - [facility] [place] 5 16:14:25 Problem Notes None recorded. Procedures Surgical History Date Name Laterality Status Provider Name and Address Organization Details Recorded Time 5 JMSNasal/Sinus Endoscopy completed KEITH HERNANDEZ MD [facility],[address], [address], [facility] - [facility] 12/24/2024 16:13:44 5 Nsl/sins ndsc surg bx polypc completed KEITH HERNANDEZ MD [facility],[address], [address], [facility] - [facility] [place] 11/22/2024 12:51:30 5 Removal of intranasal lesion completed KEITH HERNANDEZ MD [address] [facility],[place] [address], [place], [address], [place] - [facility] 11/22/2024 12:52:10 4 JMSNasal/Sinus Endoscopy completed KEITH HERNANDEZ MD [address] [place] [address], [address], [facility] - [facility] 10/18/2024 09:06:54 section completed Daja Loya [place] - [facility] 09/11/2024 11:21:15 Imaging Results None recorded. [...] Updated DateTime 12/24/2024 148.59 cm 41.1 kg/m2 34070.47 g Donnie Hair [place] - [facility] 12/24/2024 15:52:57 Social History None recorded. [...] Disorder N Anesthesia Complications N Heart Attack ([place]) N Other Skin Condition N Diabetes N [...] SNOMED-CT Code Diagnosis ICD10 Code Diagnosis Note [id number] KEITH ARITA MD [facility] [address] [place] [address] 12/24/2024 15:38:34 12/24/2024 16:20:17 Benign neoplasm of nose, middle ear and accessory sinuses 640800275 D14.0 Health Concerns Section Related Observation LastModified by Organization Detai ls LastModified Time None Recorded Concern Status LastModified by Organization Details LastModified Time None Recorded Payers Encounter Date Sequence Insurance Name Policy Number Policy Cifuentes Covered Member ID Cifuentes Member ID Guarantor Name 12/24/2024 1 [place] [facility] Sharon Bennett [id number] Sharon Bennett Notes Date Note Type Note Provider Name and Address Organization Details Recorded Time 12/24/2024 text/html Patient seen in follow-up for excision of a polypoid lesion from the posterior aspect of the right inferior turbinate. Pathology was consistent with an inflammatory polyp. Other than some crusting and blood around the time of the surgery she is doing quite well and breathing is much improved KEITH HERNANDEZ MD [address] [place] [address], [address], [facility] - [facility] 12/24/2024 16:15:47 OBGyn Episode No OBEpisode recorded.
--- OUTSIDE RECORDS SUMMARY | 2025-01-02 14:11 | XMS_ITS | Encounter Summary ---
Author Organization [employer] Address [address] [facility] 7t [place] [address] Care Team Providers Care Shuttle Threader Name Role Phone Daja To MD Primary Care Provider + Reason for Visit * Reason Comments Pre-visit Planning SDOH screening negat mary ann and tobacco screening negative Encounter Details Date Type Department Care Team ([facility] st Contact Info) Description 12/21/2024 Patient Outreach [facility] MEDICINE [address] [place], [place] [phone] Daja To MD 230 [place], [place] [phone] Pre-visit Planning (SDOH screening negative and tobacco screening negative) Social History Tobacco Use Types Packs/Day Years [...] AM EDT documented as of this encounter Progress Notes * Amy Messina - 12/21/2024 10:51 AM EST CC Amy placed successful outbound call to patient for pre-visit planning. Patient name and confirmed. Patient confirms appt date and time, and has transportation. Biggest concern for appointment at this time is none Patient advised to bring to appointment a photo id and insurance card. Appropriate screenings completed in anticipation of appointment. documented in this encounter Plan of Treatment Upcoming Encounters Date Type Department Care Team (Late st Contact Info) Description 01/07/2025 2:30 PM EDT Nutrition [facility] DIABETES/NUTRITION 230 [place] [address] Carol Farah, RD 230 [place] [address] 02/25/2025 1:00 PM EDT Office Visit [facility] OPTOMETRY [address] [place] [address] Abby Butler, OD 230 [place] [address] documented as of this encounter Visit Diagnoses Not on filedocumented in this encounter Care Teams Shuttle Threader Relationship Specialty Start Date End Date Daja To MD 230 [place] [address] PCP - General Family Medicine 07/12/19 documented as of this encounter
--- OUTSIDE RECORDS SUMMARY | 2025-01-02 14:11 | XMS_ITS | Encounter Summary ---
Author Organization [employer] Address [address] [facility] 7t [place] [address] Care Team Providers Care Elementary School Art Teacher Name Role Phone Daja To MD Primary Care Provider + Encounter Details Date Type Department Care Team (Latest Contact Info) Description 12/26/2024 Travel Social History Tobacco Use Types Packs/Day [...] Info) Description 01/07/2025 2:30 PM EDT Nutrition [facility] DIABETES/NUTRITION 230 [place] [address] Carol Farah, PRISCILLA 230 [place] [address] 02/25/2025 1:00 PM EDT Office Visit [facility] OPTOMETRY [address] [place] [address] Luke, Abby, OD 230 [place] [address] documented as of this encounter Visit Diagnoses Not on filedocumented in this encounter Care Teams Elementary [employer] Art Teacher Relationship Specialty Start Date End Date Daja To MD 230 [place] [address] PCP - General Family Medicine 07/12/19 documented as of this encounter
--- OUTSIDE RECORDS SUMMARY | 2025-01-02 14:11 | XMS_ITS | Encounter Summary ---
Author Organization [employer] Address [address] [facility] 7t [place] [address] Care Team Providers Care Cafe Server Name Role Phone Daja To MD Primary Care Provider + Encounter Details Date Type Department Care Team (Latest Contact Info) Description 01/02/2025 Travel Social History Tobacco Use Types Packs/Day [...] Info) Description 01/07/2025 2:30 PM EDT Nutrition [facility] DIABETES/NUTRITION 230 [place] [address] Carol Farah, PRISCILLA [address] [place] [address] 02/25/2025 1:00 PM EDT Office Visit [facility] OPTOMETRY [address] [place] [address] Luke, Abby, OD 230 [place] [address] documented as of this encounter Visit Diagnoses Not on filedocumented in this encounter Care Teams Cafe Server Relationship Specialty Start Date End Date Daja To MD 230 [place] [address] PCP - General Family Medicine 07/12/19 documented as of this encounter
--- OUTSIDE RECORDS SUMMARY | 2025-01-02 14:11 | XMS_ITS | Encounter Summary ---
Author Organization [employer] Address [address] [facility] 7t [place] [address] Care Team Providers Care Technology Professional Name Role Phone Daja To MD Primary Care Provider + Encounter Details Date Type Department Care Team (Latest Contact Info) Description 12/31/2024 Travel Social History Tobacco Use Types Packs/Day [...] Info) Description 01/07/2025 2:30 PM EDT Nutrition [facility] DIABETES/NUTRITION 230 [place] [address] Carol Farah, PRISCILLA 230 [place] [address] 02/25/2025 1:00 PM EDT Office Visit [facility] OPTOMETRY [address] [place] [address] Luke, Abby, OD 230 [place] [address] documented as of this encounter Visit Diagnoses Not on filedocumented in this encounter Care Teams Technology Professional Relationship Specialty Start Date End Date Daja To MD 230 [place] [address] PCP - General Family Medicine 07/12/19 documented as of this encounter
[2025-01-02 14:36] LABS: TSH reflex Free T4 0.86 uIU/mL (0.32-4.0)
[2025-01-03 17:43] LABS: Rubella IgG Antibody 4.72 Index; Rubeola IgG (Measles) >300.00 AU/mL
== END 2025-01-02 11:41 | disposition home or self-care (01) ==
LOC: HO.HHCL 11:40
PROVIDERS: Advanced Practice Midwife; Visit Provider Internal Medicine
DX: Z00.00 Encounter for general adult medical examination without abnormal findings (principal); N92.0 Excessive and frequent menstruation with regular cycle; N93.8 Other specified abnormal uterine and vaginal bleeding
CPT/HCPCS: 36415; 84443; 84702; 85027; 86735; 86762; 86765

== ENCOUNTER 2025-01-07 14:48 | Outpatient (REF) | payer MEDICAID, SELFPAY ==
--- OUTSIDE RECORDS SUMMARY | 2025-01-07 16:56 | XMS_ITS | Data Portability ---
Author Organization [place] - [facility], Allergy Address [address] [address] Care Team Providers Care Turner Machine Name Role Phone DUANE MARRERO Primary Care Provider Assessment Encounter Date Assessment Date Assessment LastModified by Organization Details LastModified Time 09/11/2024 09/11/2024 Patient's history is consistent with a right sudden sensorineural hearing loss affecting the right ear about 2 years ago which has remained stable ever since. Audiometric testing from [facility] reviewed which shows a primarily low and [...] her medical clearance to return to her japanese professor at [facility] audiology to discuss amplification options for the right ear. [email or web address] Not available 09/11/2024 11:36:06 10/18/2024 10/18/2024 Patient [...] x 1.2 cm. This is outside the zratp-gp-dpur on postcontrast imaging. Visualized portions of the [...] my or debrideme nt (SURG) 2023 024 [email or web address] Not available 10/18/2024 09:12:39 Imaging MRI, brain + internal auditory canal, w/wo contrast - MRI, BRAIN + INTERNAL AUDITORY CANAL, W/WO CONTRAST 2023 024 [facility] ([facility]), [address] [facility], [place], [address], 09/25/2024 16:10:25 Medication Orders None recorded. Patient TargetsNo targets recorded. Patient InstructionsNo instructions recorded. Reason for Referral None Reported. Results Created Date Observation Date Name Description Value Unit Range Abnormal Flag Note LastModifiedBy Organization Detail LastModifiedTime 09/11/20 audio gram No observ ation record ed. [email or web address] Not Available 08/31 14:01:29 09/25/20 24 09/21/2024 MRI, brain + brain stem, w/wo contr ast [facility] Access ion Number : [id number] Patien t Name: Madhav Bennett Record Number : [id number] Date of : 1984 Date of Exam: 2023 Referr ing Physic [place]: Candice Dos Santos re Ear Nose [address] [facility] [place] [address] Exam: MR Brain (C-/C+ ) CPT 05596 Room Descri ption: [facility] Verio 3.0T MR Brain (C-/C+ ) CPT 44908 INDICA TION / CLINIC AL QUESTI ON: [...] or abnorm al enhanc ement in the internet developer al audito ry canals or cerebe llopon [...] , at the juncti on of the community sports coordinator ior right nasal cavity and nasoph arynx, [...] provid er will be docume nted in [facility] onnect Action able Findin melissa espinal e [place] [id number] 1. Electr onical ly Signed By: Court Horton MD [email or web address] [facility] ([facility]) [address] [place], [address], 10/03/2024 18:04:13 Result Notes None recorded. 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 6243899946898 0 Active 2023 DESIREE DOS SANTOS MD [address] [place] [address], [place], [address], [facility] - [facility] 4 11:31:48 Sudden idiopathic hearing loss 263323137 Active 2023 DESIREE DOS SANTOS MD [address] [place] [address], [place], [address], [facility] - [facility] 4 11:31:52 Mass of nasal sinus 0307697404700 0 Active 2023 KEITH ACOSTA MD [address] [place] [address], [place], [address], [facility] - [facility] 4 09:04:48 Abnormal findings on diagnostic imaging of skull and head 527986965 Active 2023 KEITH ACOSTA MD [address] [place] [address], [place], [address], [place] - [facility] [place] 4 09:04:58 Lesion of nasal cavity 1165772629821 [address] Active 2023 KEITH ACOSTA MD [address], [place], [address], [place] - [facility] [place] 4 09:05:13 Benign neoplasm of nose, middle ear and accessory sinuses 333684211 Active 2024 KEITH ACOSTA MD [address], [place], [address], [place] - [facility] [place] 5 16:14:25 Problem Notes None recorded. Procedures Surgical History Date Name Laterality Status Provider Name and Address Organization Details Recorded Time 5 JMSNasal/Sinus Endoscopy completed KEITH HERNANDEZ MD [address] [facility] [address], [address], [facility] - [facility] 12/24/2024 16:13:44 5 Nsl/sins ndsc surg bx polypc completed KEITH HERNANDEZ MD [address] [facility] [place],[address], [address], [facility] - [facility] 11/22/2024 12:51:30 5 Removal of intranasal lesion completed KEITH HERNANDEZ MD [address] [facility] [address], [address], [facility] - [facility] 11/22/2024 12:52:10 4 JMSNasal/Sinus Endoscopy completed KEITH HERNANDEZ MD [address] [facility] [address],[address], [address], [place] - [facility] 10/18/2024 09:06:54 section completed Duane oLya [place] - [facility] [place] 09/11/2024 11:21:15 Imaging Results Imaging Date Name Status LastModified by Organiz ation Details LastModified Time 09/11/2024 audiogram [email or web address] Information n ot available 09/11/2024 14:01:29 09/21/2024 MRI, brain + brain stem, w/wo contrast completed [email or web address] [facility] ([facility]) [address], [place], [address], 10/03/2024 18:04:13 Procedure Notes None recorded. Medical [...] Details Last Updated DateTime 09/11/2024 148.59 cm 28462.44 g Duane Loya [place] - [facility] 09/11/2024 11:08:01 Date Recorded Body height Body mass index (BMI) Body weight Provider Name and Address Organization Details Last Updated DateTime 10/18/2024 148.59 cm 41.1 kg/m2 79731.47 g Eliazar Andersen [facility] 10/18/2024 08:41:46 Date Recorded Body height Body mass index (BMI) Body weight Provider Name and Address Organization Details Last Updated DateTime 12/24/2024 148.59 cm 41.1 kg/m2 90477.47 g Donnie Hair [facility] 12/24/2024 15:52:57 Social History None recorded. Functional [...] Disorder N Anesthesia Complications N Heart Attack ([place]) N Other Skin Condition N Diabetes N [...] SNOMED-CT Code Diagnosis ICD10 Code Diagnosis Note [id number] DESIREE DOS SANTOS MD ENTS of [address] [address] 09/11/2024 10:51:59 09/11/2024 11:37:03 Sensorineural hearing loss in right ear 3220946966 9100 H90.41 Sudden idi opathic hearing loss 426810261 H91.21 [id number] KEITH ARITA MD [facility]NT[facility] of [address] [address] 10/18/2024 08:22:43 10/18/2024 09:11:26 Mass of nasal sinus 3376880735 9100 R22.0 Abnormal f indings on diagnostic imaging of skull and head 428916307 R93.0 Lesion of nasal cavity 5734790774 27602352 J34.89 [id number] KEITH ARITA MD [facility]NT[facility] of [address] [address] 12/24/2024 15:38:34 12/24/2024 16:20:17 Benign neoplasm of nose, middle ear and accessory sinuses 324745211 D14.0 Health Concerns Section Related Observation LastModified by Organization Detai ls LastModified Time None Recorded Concern Status LastModified by Organization Details LastModified Time None Recorded Advance Directives Directive None Recorded Payers Encounter Date Sequence Insurance Name Policy Number Policy Cifuentes Covered Member ID Cifuentes Member ID Guarantor Name 09/11/2024 1 [place] [facility] Sharon Bennett [id number] Manditidebbi Bennett 10/18/2024 1 [place] [facility] Nilambert Bennett [id number] Niozotiz Bennett 12/24/2024 1 [facility] Sharon Bennett [id number] Sharon Bennett Notes Date Note Type Note Provider Name and Address Organization Details Recorded Time 09/11/2024 text/html Patient referred for evaluation of asymmetric hearing loss. [facility] showed sensorineural hearing loss affecting [...] or currently. DESIREE DOS SANTOS MD [address] [facility],[address], [address], [facility] 09/11/2024 11:37:00 10/18/2024 text/html Patient seen for [...] x 1.2 cm. This is outside the jdjqv-bf-rikv onpostcontrast imaging. Visualized portions of the extracranial softtissues are otherwise unremarkable. KEITH HERNANDEZ MD [address] [facility],[place] [address], [place], [address], [facility] - [facility] 10/18/2024 09:07:40 12/24/2024 text/html Patient seen in follow-up for excision of a polypoid lesion from the posterior aspect of the right inferior turbinate. Pathology was consistent with an inflammatory polyp. Other than some crusting and blood around the time of the surgery she is doing quite well and breathing is much improved KEITH HERNANDEZ MD [address] [place] [address], [place], [address], [place] - [facility] 12/24/2024 16:15:47 OBGyn Episode No OBEpisode recorded.
--- OUTSIDE RECORDS SUMMARY | 2025-01-07 16:56 | XMS_ITS | Encounter Summary ---
Author Organization [employer] Address [address] [place] [address] 7t [place] [address] Care Team Providers Care Faculty Criminal Justice Name Role Phone Daja To MD Primary Care Provider + Reason for Visit * Reason Onset Date Comments Appointment Request 10/27/2023 Encounter Details Date Type Department Care Team (Late st Contact Info) Description 10/27/2023 Telephone [facility] MEDICINE 230 [place] [address] Daja To MD 230 [place] [address] Appointment Request Social History Tobacco Use Types [...] from pt requesting PE appt with PCP, publications writer attempted to schedule, no availability for October. documented in this encounter Plan of Treatment Upcoming Encounters Date Type Department Care Team (Late st Contact Info) Description 02/01/2025 2:30 PM EDT Nutrition [facility] DIABETES/NUTRITION [address] [place] [address] Carol Farah, PRISCILLA [address] [place] [address] 02/25/2025 1:00 PM EDT Office Visit [facility] OPTOMETRY [address] [place] [address] Abby Butler, ALESSIA 230 [place] [address] documented as of this encounter Visit Diagnoses Not on filedocumented in this encounter Care Teams Faculty Criminal Justice Relationship Specialty Start Date End Date Daja To MD 230 [place] [address] PCP - General Family Medicine 07/12/19 documented as of this encounter
--- OUTSIDE RECORDS SUMMARY | 2025-01-07 16:56 | XMS_ITS | Encounter Summary ---
Author Organization [employer] Address [address] [place] [address] [address] [place] [address] Care Team Providers Care Operations Support Representative Name Role Phone Daja To MD Primary Care Provider + Encounter Details Date Type Department Care Team (Latest Contact Info) Description 01/25/[address] [facility] CONVERSIONS Dental, Provider, DDS Social History Tobacco [...] Care Team ( st Contact Info) Description 02/01/2025 2:[address] [facility] DIABETES/NUTRITION [address] [place] [address] Carol Farah, RD 230 [place] [address] 02/25/2025 1:00 PM EDT Office Visit [facility] OPTOMETRY [address] [place] [address] Luke, Abby, OD 230 [place] [address] documented as of this encounter Visit Diagnoses Not on filedocumented in this encounter Care Teams Operations Support Representative Relationship Specialty Start Date End Date Daja To MD [address] [place] [address] PCP - General Family Medicine 07/12/19 documented as of this encounter
--- OUTSIDE RECORDS SUMMARY | 2025-01-07 16:57 | XMS_ITS | Continuity of Care Document ---
Author Organization [place] - [facility], [facility] Address [address] [place] [phone] Care Team Providers Care Security Dispatcher Name Role Phone DAJA MARRERO Primary Care [...] Sensorineur al hearing loss in right ear [id number] 0 Active 2023 DESIREE COPPOLA MD [address] [place] [address], [place], [phone] [facility] [place] [facility] 11:31:48 Sudden idiopathic hearing loss 155771212 Active 2023 DESIREE COPPOLA MD [address] [place] [address], [place], [address], [place] [facility] 11:31:52 Mass of nasal sinus [id number] 0 Active 2023 KEITH ACOSTA MD [address], [facility] [place], [address], [place] [facility] 4 09:04:48 Abnormal findings on diagnostic imaging of skull and head 397678533 Active 2023 KEITH ACOSTA MD [address] [place], [facility] [place], [address], [place] [facility] 4 09:04:58 Lesion of nasal cavity [id number] [address] Active 2023 KEITH ACOSTA MD [facility] [place], [facility] [place], [address], [place] [facility] 4 09:05:13 Benign neoplasm of nose, middle ear and accessory sinuses 874188972 Active 2024 KEITH ACOSTA MD [address] [facility] [place], [place], [address], [place] [facility] 5 16:14:25 Problem Notes None recorded. Procedures Surgical History Date Name Laterality Status Provider Name and Address Organization Details Recorded Time 5 JMSNasal/Sinus Endoscopy completed KEITH HERNANDEZ MD [address] [facility] [place],[address], [address], [facility] - [facility] 12/24/2024 16:13:44 5 Nsl/sins ndsc surg bx polypc completed KEITH HERNANDEZ MD [address] [facility] [place],[address], [address], [facility] - [facility] 11/22/2024 12:51:30 5 Removal of intranasal lesion completed KEITH HERNANDEZ MD [address] [facility] [place] [address], [place], [address], [place] [facility] 11/22/2024 12:52:10 4 JMSNasal/Sinus Endoscopy completed KEITH HERNANDEZ MD [address] [place] [address], [phone], [facility] - [facility] 10/18/2024 09:06:54 section completed Daja Loya [place] - [facility] 09/11/2024 11:21:15 Imaging Results None recorded. [...] Updated DateTime 12/24/2024 148.59 cm 41.1 kg/m2 50766.47 g Donnie Hair [place] - [facility] 12/24/2024 15:52:57 Social History None recorded. [...] Disorder N Anesthesia Complications N Heart Attack (IA) N Other Skin Condition N Diabetes N [...] SNOMED-CT Code Diagnosis ICD10 Code Diagnosis Note [id number] KEITH ARITA MD [facility] [address] [place] [address] 12/24/2024 15:38:34 12/24/2024 16:20:17 Benign neoplasm of nose, middle ear and accessory sinuses [id number] D14.0 Health Concerns Section Related Observation LastModified by Organization Detai ls LastModified Time None Recorded Concern Status LastModified by Organization Details LastModified Time None Recorded Payers Encounter Date Sequence Insurance Name Policy Number Policy Cifuentes Covered Member ID Cifuentes Member ID Guarantor Name 12/24/2024 1 MEDICAID-[place]: [facility] Sharon Bennett [id number] Sharon Bennett Notes Date Note Type Note [...] breathing is much improved KEITH HERNANDEZ MD [address] [place] [address], [phone], [facility] - [facility] 12/24/2024 16:15:47 OBGyn Episode No OBEpisode recorded.
--- OUTSIDE RECORDS SUMMARY | 2025-01-07 16:57 | XMS_ITS | Encounter Summary ---
Author Organization [employer] Address 75 [facility] 7t [place] [address] Care Team Providers Care Associate Professor Of Literature Name Role Phone Daja To MD Primary Care Provider + Reason for Visit * Reason Onset Date Comments Chart prep 12/25/2024 Encounter Details Date Type Department Care Team ([facility] st Contact Info) Description 12/25/2024 Telephone [facility] MEDICINE [address] [place], [place] [phone] Daja To MD [address] [place], [place] [phone] Chart prep Social History Tobacco Use Types [...] Info) Description 02/01/2025 2:30 PM EDT Nutrition [facility] DIABETES/NUTRITION [address] [place] [address] Carol Farah, RD [address] [place] [address] 02/25/2025 1:00 PM EDT Office Visit [facility] OPTOMETRY [address] [place] [address] Luke, Abby, OD [address] [place] [address] documented as of this encounter Visit Diagnoses Not on filedocumented in this encounter Care Teams Associate Professor Of Literature Relationship Specialty Start Date End Date Daja To MD [address] [place] [address] PCP - General Family Medicine 07/12/19 documented as of this encounter
--- OUTSIDE RECORDS SUMMARY | 2025-01-07 16:57 | XMS_ITS | Encounter Summary ---
Author Organization [employer] Address 75 [facility] 7t [place] [address] Care Team Providers Care Workforce Advisor Name Role Phone Daja To MD Primary Care Provider + Reason for Visit * Reason Comments Pre-visit Planning SDOH screening negat mary ann and tobacco screening negative Encounter Details Date Type Department Care Team ([facility] st Contact Info) Description 12/21/2024 Patient Outreach [facility] MEDICINE [address] [place], [place] [phone] Daja To MD [address] [place], [place] [phone] Pre-visit Planning (SDOH screening negative and tobacco [...] Info) Description 02/01/2025 2:30 PM EDT Nutrition [facility] DIABETES/NUTRITION [address] [place] [address] Carol Farah, RD [address] [place] [address] 02/25/2025 1:00 PM EDT Office Visit [facility] OPTOMETRY [address] [place] [address] Abby Butler, OD 230 [place] [address] documented as of this encounter Visit Diagnoses Not on filedocumented in this encounter Care Teams Workforce Advisor Relationship Specialty Start Date End Date Daaj To MD [address] [place] [address] PCP - General Family Medicine 07/12/19 documented as of this encounter
--- OUTSIDE RECORDS SUMMARY | 2025-01-07 16:57 | XMS_ITS | Clinical Summary ---
Author Organization [employer] Address [address] [place] [address] 7t [place] [address] Care Team Providers Care Apple Sorter Name Role Phone Daja To MD Primary Care Provider + Allergies No known active allergies Medications albuterol 108 (90 Base) MCG/ACT inhaler Inhale 2 puffs every 6 (six) hours if needed for wheezing. 18 g 4 Active norethindrone (Micronor) 0.35 MG tablet Take 1 tablet by mouth if needed each day. 4 Active ergocalciferol (Vitamin D2) 1.25 MG (78212 UT) capsule TAKE 1 CAPSULE(1.25 MG) BY MOUTH 1 TIME EVERY WEEK 12 capsule 1 4 Active nicotine polacrilex (Nicorette) 2 MG gum Chew 1 each (2 mg) if needed for smoking cessation (nictoine craving). 100 each 5 Active Active Problems Problem Noted Date Diagnosed [...] due this yr, has appointment 01/2024 at [facility] Eye exam, has upcoming appointment 12/13 Lipids/FBS [...] Description 01/02/2025 10:30 AM EST Office Visit [facility] MEDICINE [address] [place] [address] Daja To MD Encounter for preventive health examination (Primary Dx); DUB (dysfunctional uterine bleeding); Encounter for immunization 01/02/2025 Travel 12/31/2024 Travel 12/26/2024 Travel 12/25/[address] [address] Daja To MD Chart prep 12/21/2024 Patient Outreach [address] [address] Daja To MD Pre-visit Planning (SDOH screening negative and tobacco screening negative) 12/07/2024 9:00 AM EST Office Visit [address] [address] Daja To MD Sensorineural hearing loss (SNHL) of right ear with unrestricted hearing of left ear (Primary Dx); Mild intermittent asthma without complication; Dietary counseling; Exercise counseling; Class 3 severe obesity due to excess calories without serious comorbidity with body mass index (BMI) of 40.0 to 44.9 in adult ([facility]); RADHA III (cervical intraepithelial neoplasia III) 12/07/2024 Travel 11/30/2024 Travel 11/23/[address] [address] Isabel Bauman [place] Chart prep 11/19/2024 Travel 11/14/2024 Patient Outreach [address] [address] Daja To MD Pre-visit Planning (SDOH screening negative and tobacco screening positive) 11/01/[address] [address] Daja To MD December call 10/16/[address] [address] Daja To MD December recall from Last [...] Info) Description 02/01/2025 2:30 PM EDT Nutrition [facility] DIABETES/NUTRITION [address] [place] [address] Sofi Carol, RD 230 [place] [address] 02/25/2025 1:00 PM EDT Office Visit [facility] OPTOMETRY [address] [place] [address] Abby Butler, OD 230 [place] [address] Health Maintenance Due Date Last Done Comments Alcohol/Substance Use Screening 1997 Family Planning (PISQ) 2000 Hepatitis B Vaccines (1 of 3 - 19+ 3-dose series) 2004 Pneumococcal Vaccine: Pediatrics (0 to 5 Years) and At-Risk Patients (6 to 49) Years) (1 of 2 - PCV) 2004 COVID-19 Vaccine (2023-2 5 season) 2024 03/11/2021, 02/11/2021 Depression Screening [...] Comments CBC Routine 01/02/2025 11:42 AM EST MEASLES, MUMPS, AND RUBELLA (MMR) AB (IGG) PANEL, IMMUNE STATUS Routine 01/02/2025 11:42 AM EST Encounter for preventive health examination HCG, TOTAL, QN Routine 01/02/2025 11:42 AM EST DUB (dysfunctional uterine bleeding) TSH W/REFLEX TO FT4 Routine 01/02/2025 1 1:42 AM EST DUB (dysfunctional uterine bleeding) HPV [...] Recently Relevant to Health Maintenance Results * TSH W/Reflex to FT4 (01/02/2025 11:42 AM EST) TSH reflex Free T4 0.86 0.32 - 4.0 uIU/mL [facility] Blood Venous blood specimen / Unknown 01/02/2025 11:42 AM EST 01/02/2025 1:14 PM EST Daja To MD LAB BLOOD ORDERABLES Fin al Result [facility] [address] [place] [address] [phone] * Measles, Mumps, and Rubella (MMR) Antibodies??(IgG) Panel, Immune Status (01/02/2025 11:42 AM EST) Mumps Virus IgG Antibody 171.00 AU/mL [facility] Comment:AU/mL Interpretation ------- <9.00 Not consistent with immunity9.00-10.99 Equivocal>10.99 Consistent with immunityThe presence of mumps IgG antibody suggests immunizationor past or current infection with mumps virus. Rubella IgG Antibody 4.72 Index [facility] Comment:Index Interpretation ----- <0.90 Not consistent with immunity 0.90-0.99 Equivocal > or = 1.00 Consistent with immunityThe presence of rubella IgG antibody suggestsimmunization or past or current infection withrubella virus.THIS TEST WAS PERFORMED AT:[employer] [place] [id number] PEACOCK MD Rubeola IgG (Measles) >300.00 AU/mL [facility] Comment:AU/mL Interpretation ----- <13.50 Not consistent with idhdhhmv34.50-16.49 Equivocal>16.49 Consistent with immunityThe presence of measles IgG suggests immunization orpast or current infection with measles virus.For additional information, please refer tohttp://education.[employer]/faq/VNZ256(This link is being provided for informational/educational purposes only.) Blood Venous blood specimen / Unknown 01/02/2025 11:42 AM EST 01/02/2025 1:10 PM EST us Daja To MD LAB BLOOD ORDERABLES Fin al Result Performing Organization Address City/[facility]/ZIP Co de Phone Number [facility] [address] [place] [address] [phone] * (ABNORMAL) CBC (01/02/2025 11:42 AM EST) White Blood Count 6.8 4.8 - 10.8 X10*3/uL [facility] Red Blood Count 3.85(L) 4.20 - 5.50 X10*6/uL [facility] Hemoglobin 13.5 12.0 - 16.0 g/dl [facility] Hematocrit 38.7 37.0 - 47.0 % [facility] Mean Corpuscular Volume 100.5(H) 80.0 - 98.0 fL [facility] Mean Corpuscular Hemoglobin 35.1(H) 27.0 - 33.0 pg [facility] Mean Corpuscular HGB Conc 34.9 31.0 - 35.0 g/dl [facility] Red Cell Distribution Width 12.4 11.0 - 16.0 % [facility] Platelet Count 252 160 - 400 X10*3/uL [facility] Mean Platelet Volume 10.5 9.4 - 12.3 fL [facility] NRBC Pct Auto 0.0 0.0 - 0.2 /100WBC [facility] NRBC Abs Auto 0.000 0.0 - 0.012 X10*3/uL [facility] 01/02/2025 11:4 2 AM EST 01/02/2025 1:10 PM EST us Generic External Data Provider LAB BLOOD ORDERAB LES Final Result Performing Organization Address City/[facility]/ZIP Co de Phone Number [facility] [address] [place] [address] [phone] * hCG, Total, Quantitative (01/02/2025 11:42 AM EST) HCG Quantitative 9,148 mIU/mL [facility] Comment:Weeks post LMP Appro ximate hCG(Last Menstrual Period) Range (mIU/ml)3 - 4 weeks 9 - 1304 - 5 weeks 75 - 2,6005 - 6 weeks 850 - 20,8006 - 7 weeks 4000 - 100,2007 - 12 weeks 11,500 - 289,44293 - 16 weeks 18,300 - 137,42081 - 29 weeks (2nd trimester) 1,400 - 53,12053 - 41 weeks (3rd trimester) 940 - 60,000The [employer] B- hCG assay is used for the early detection ofpregnancy; it cannot be used to diagnose any conditionunrelated to . If a B-hCG level is not supportedby the clinical evidence, results should be confirmed by analternative method (qualitative urine hCG, for example). Blood Venous blood specimen / Unknown 01/02/2025 11:42 AM EST 01/02/2025 1:14 PM EST us Daja To MD LAB BLOOD ORDERABLES Fin al Result [facility] [address] [place] [address] [phone] * (ABNORMAL) HPV mRNA E6/E7 w/Reflex to HPV Genotypes 16, 18/45 (03/22/2024 1:55 PM EDT) HPV nRNA E6/E7 Detected(A ) Not Detected [facility] Comment:Methodology: Transcr iption-Mediated AmplificationThis assay detects E6/E7 viral messenger RNA (mRNA) from 14high-risk HPV types (16,18,31,33,35,39,45,51,52,56,58,59,66,68).Cervical sources are required for HPV testing.If a vaginal source from a patient who has had atotal hysterectomy with removal of cervix wassubmitted, please contact the testing laboratoryfor alternative testing options.For additional information, please refer tohttp://education.[employer]/faq/QZZ919d2(This link if provided for information/educational purposes only.)THIS TEST WAS PERFORMED AT:[employer] [address] [phone] PEACOCK MD HPV 16 RNA NOT DETECTED NOT DETECTED [facility] HPV 18/45 RNA NOT DETECTED NOT DETECTED [facility] Comment:Methodology: Transcr iption Mediated AmplificationCervical sources are required for HPV testing.If a vaginal source from a patient who has had atotal hysterectomy with removal of cervix wassubmitted, please contact the testing laboratoryfor alternative testing options.THIS TEST WAS PERFORMED AT:[facility] [address] [phone] PEACOCK MD 03/22/2024 1:55 PM EDT 03/26/2024 10:00 AM EDT Generic External Data Provider LAB CYTOLOGY YASH VILLATORO Final Result [facility] [address] [place] [address] [phone] * Pap Smear (03/22/2024 1:55 PM EDT) 03/22/2024 1:55 PM EDT 03/26/2024 10:00 AM EDT Narrative [facility] - 04/16/2024 7:03 AM EDT ----- ------- Name: Sharon Bennett ?Age/Sex: 38/F ? : 1985 Unit#: [id number] ?? Attend Dr: Stella Bryant CNM ?Re03/22/24 ?Status: DEP REF ? Location: HO.LNP ?Disch: ? ----- ------- SPEC : [id number] ?RECD: 03/26/24-999 ? STATUS: ??SOUT ? REQ NUM: [id number] ? MARGARET: 03/22/24-5973 ? SUBM DR: Stella Bryant CNM ? ENTERED: ??03/26/24-9543 ?SP TYPE: Pap Smr ?OTHR DR: Daja [...] Not Detected ? HPV testing performed by [employer], [place], [place]. ??See reference laboratory ?? portion of the EMR for entire report. ?Clinical Information LMP:03/18/24 Previous PAP test:2019, WNL ? Material Received ?? ThinPrep-Cervical Copies To: ?? Daja To MD ?? [address] [facility] ?? [place] [address] ? Stella Bryant CNM ?? [address] [place] [address] [facility] ?? [place] [address] ?? [phone] ----- ------- Signed (signature on file) Cecilia Armstrong Steven 04/16/[address] ? ----- ------- ? END OF REPORT ? us Generic External Data Provider LAB CYTOLOGY YASH VILLATORO Final Result Performing Organization Address [facility] Co de Phone Number [facility] [address] [place] [address] [phone] * (ABNORMAL) Lipid Panel with Reflex to Direct LDL (12/01/2023 10:40 AM EST) Triglycerides 72 <150 mg/dL [facility] Comment:Desirable Triglyceri de: less than 150 mg/dLBorderline High Triglyceride 150-199 mg/dLHigh Triglyceride: 200-499 mg/dLVery High Triglyceride: greater than or equal to 5OO mg/dL Cholesterol 170 <200 mg/dL [facility] Comment:Desirable Cholestero l: less than 200 mg/dLBorderline High Cholesterol: 200-239 mg/dLHigh Cholesterol: greater than 239 mg/dL LDL Cholesterol Calculated 119(H) <100 mg/dL [facility] Comment:Desirable LDL: less than 100 mg/dLNear Optimal/Above Optimal LDL: 110- 129 mg/dLBorderline High LDL: 130-159 mg/dLHigh LDL: 160-189 mg/dLVery High LDL: greater than or equal to 190 mg/dL HDL Cholesterol 37(L) >40 mg/dL [facility] Comment:Desirable HDL: great er than 40 mg/dL Note: This HDL assay may give artificially low results in patients with liver disease. Blood 12/01/2023 10:4 0 AM EST 12/01/2023 11:14 AM EST us Daja To MD LAB BLOOD ORDERABLES Fin al Result Performing Organization Address [facility]/ZIP Co de Phone Number [facility] [address] [place] [address] [phone] * Hepatitis Panel, General (12/01/2023 10:40 AM EST) Hepatitis A IgM Nonreactive Nonreactive [facility] Comment:IgM antibodies to BISHOP V not detected; does not exclude earlyacute or recovered HAV infection. ~Hepatitis B Surface Antibody REACTIVE Nonreactive [facility] Comment:REACTIVE: > 11.99 mI U/mL Hepatitis B Core Antibody Nonreactive Nonreactive [facility] Hepatitis C Antibody Nonreactive Nonreactive [facility] Comment:Antibodies to HCV no t detected; does not exclude early acuteHCV infection. Hepatitis B Surface Ag Negative Negative [facility] Blood 12/01/2023 10:4 0 AM EST 12/01/2023 11:14 AM EST Daja To MD LAB BLOOD ORDERABLES Fin al Result Performing Organization Address [facility] Co de Phone Number [facility] [address] [place] [phone] * HIV-1/2 Antigen and Antibodies, Fourth Generation, with Reflexes (12/01/2023 10:40 AM EST) [facility] HIV AB/AG Nonreactive Nonreactive [facility] Comment:HIV-1 p24 Ag and/or HIV-1/HIV-2 Ab not detected.A test result that is nonreactive does not exclude thepossibility of exposure to or infection with HIV-1 and/orHIV-2. Nonreactive results in this assay for individualswith prior exposure to HIV-1 and/or HIV-2 may be due toantigen and antibody levels that are below the limit ofdetection of this assay.The [employer] HIV Ag/Ab Combo assay result andsupplemental assay results should be interpreted inconjunction with the patient's clinical presentation,history and other laboratory results. If the results areinconsistent with clinical evidence, additional testing issuggested to confirm the result. Blood Venous blood specimen / Unknown 12/01/2023 10:40 AM EST 12/01/2023 11:14 AM EST us Daja To MD LAB BLOOD ORDERABLES Fin al Result Performing Organization Address [facility]/ZIP Co de Phone Number [facility] [address] [place] [phone] from Last 3 Months or Most Recently Relevant to Health Maintenance Insurance [facility] STANDARD Care Teams Apple Sorter Relationship Specialty Start Date End Date Daja To MD [address] [place] [phone] PCP - General Family Medicine 07/12/19
--- OUTSIDE RECORDS SUMMARY | 2025-01-07 16:57 | XMS_ITS | Encounter Summary ---
Author Organization [employer] Address [address] [facility] 7t [place] [address] Care Team Providers Care Railroad Signal And Switch Operator Name Role Phone Daja To MD [...] Info) Description 02/01/2025 2:30 PM EDT Nutrition [facility] DIABETES/NUTRITION [address] [place] [address] Carol Farah, PRISCILLA [address] [place] [address] 02/25/2025 1:00 PM EDT Office Visit [facility] OPTOMETRY [address] [place] [address] Luke, Abby, OD [address] [place] [address] documented as of this encounter Visit Diagnoses Not on filedocumented in this encounter Care Teams Railroad Signal And Switch Operator Relationship Specialty Start Date End Date Daja To MD [address] [place] [address] PCP - General Family Medicine 07/12/19 documented as of this encounter
--- OUTSIDE RECORDS SUMMARY | 2025-01-07 16:57 | XMS_ITS | Encounter Summary ---
Author Organization [employer] Address [address] [facility] 7t [place] [address] Care Team Providers Care Internal Controls Consultant Name Role Phone Daja To MD Primary [...] Info) Description 02/01/2025 2:30 PM EDT Nutrition [facility] DIABETES/NUTRITION [address] [place] [address] Carol Farah, PRISCILLA [address] [place] [address] 02/25/2025 1:00 PM EDT Office Visit [facility] OPTOMETRY [address] [place] [address] Luke, Abby, OD [address] [place] [address] documented as of this encounter Visit Diagnoses Not on filedocumented in this encounter Care Teams Internal Controls Consultant Relationship Specialty Start Date End Date Daja To MD [address] [place] [address] PCP - General Family Medicine 07/12/19 documented as of this encounter
--- OUTSIDE RECORDS SUMMARY | 2025-01-07 16:57 | XMS_ITS | Encounter Summary ---
Author Organization [employer] Address [address] [place] [address] [address] [place] [address] Care Team Providers Care Community Representative Name Role Phone Daja To MD Primary Care Provider + Reason for Visit * Reason Comments Annual Exam Encounter Details Date Type Department Care Team ([facility] st Contact Info) Description 01/02/2025 10:30 AM EST Office Visit [facility] MEDICINE [address], [place] [phone] Daja To MD [address] [place], [place] [phone] Encounter for preventive health examination (Primary Dx); [...] 10:33 AM EST documented in this encounter Progress Notes * Daja To MD - 01/02/2025 10:30 AM EST SUBJECTIVE: Sharon Bennett is a 39 y.o. year old female who presents for routine physical exam . Denies recentillness, injury, or hospitalization. Patient here for PE. -PAP smear: 03/22/2024 unsatisfactory/+HPV F/U with Dr. 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 Review of [...] Endocrine: Negative for polydipsia and polyuria. Genitourinary: Positive for menstrual problem. Negative for dysuria, frequency, genital sores, pelvic pain and vaginal discharge. Musculoskeletal: Negative for back pain and neck pain. Skin: Negative for rash. Allergic/Immunologic: Negative for environmental allergies. Neurological: Negative for dizziness, seizures, weakness, light-headedness and headaches. Hematological: Negative for adenopathy. Psychiatric/Behavioral: Negative for agitation, behavioral problems, self-injury and suicidal ideas. OBJECTIVE: Vitals: 01/02/25 1033 BP: 136/71 Pulse: 86 Resp: 20 Temp: 97.1 ??F (36.2 ??C) SpO2: 99% Physical Exam HENT: Right Ear: Tympanic membrane [...] normal. Problem List Items Addressed This Visit Encounter for preventive health examination - Primary Discussed with patient re increase fresh fruit [...] make an appt at our dental clinic. Relevant Orders Measles, Mumps, and Rubella (MMR) Antibodies (IgG) Panel, Immune Status DUB (dysfunctional uterine bleeding) Rule out and hypothyroidism. Order labs and FU PRN with me. Relevant Orders TSH W/Reflex to FT4 hCG, Total, Quantitative Other Visit Diagnoses Encounter for immunization Relevant Orders FLU VACCINE TRIVALENT (Fluarix) 6 mo + (Completed) Follow Up: Current Outpatient Medications on File Prior to Visit Medication Sig Dispense Refill albuterol 108 (90 Base) MCG/ACT inhaler Inhale 2 puffs every 6 (six) hours if needed for wheezing. 18 g 0 ergocalciferol (Vitamin D2) 1.25 MG (82947 UT) capsule TAKE 1 CAPSULE(1.25 MG) BY MOUTH 1 TIME EVERY WEEK 12 capsule 1 nicotine polacrilex (Nicorette) 2 MG gum Chew 1 each (2 mg) if needed for smoking cessation (nictoine craving). 100 each 0 norethindrone (Micronor) 0.35 MG tablet Take 1 tablet by mouth if needed each day. No current facility-administered medications on file prior to visit. I, Brea Joy, am serving as a scribe to document services personally performed by Dr. Daja To, based on the patient's response to questions by provider and provider's statements to me. documented in this encounter [...] make an appt at our dental clinic. * Result Encounter Note - Daja To MD - 01/02/2025 10:30 AM EST Today's labs showed normal CBC and TSH and a positive test up to 9000 which puts her somewhere between 7 to 12 weeks vs a false positive. I called patient and discussed the findings and told her that the most likely cause was a , she was not ready or planning another but she is unable to tell me her plans at this time. I offered to follow-up with me tomorrow to discuss in more details the findings and repeat labs, she tells me she cannot do it due to work and family commitments, I told her to come on Tuesday or Tuesday to get labs done, repeat hCG and I will follow-up results. I told her she is welcome to go to the walk-in clinic at any time or follow-up w ith me after labs. She agreed with the POC. At this time she does not have any vaginal bleeding, pelvic or abdominal pain or vaginal discharge. documented in this encounter Plan of Treatment Upcoming Encounters Date Type Department Care Team (Late st Contact Info) Description 02/01/2025 2:30 PM EDT Nutrition [facility] DIABETES/NUTRITION [address] [place] [address] Carol Farah, RD [address] [place] [address] 02/25/2025 1:00 PM EDT Office Visit [facility] OPTOMETRY [address] [place] [address] Luke, Abby, OD [address] [place] [address] Scheduled Orders Name Type Priority Associated Diagnoses Orde r Schedule hCG, Total, Quantitative Lab Routine DUB (dysfunctional uterine bleeding) Expected: 01/03/2025 (Approximate), Expires: 01/02/2026 documented as of this encounter Procedures Procedure Name Priority Date/Time Associated Diagnosis Comments TSH W/REFLEX TO FT4 Routine 01/02/2025 1 1:42 AM EST DUB (dysfunctional uterine bleeding) MEASLES, MUMPS, AND RUBELLA (MMR) AB (IGG) PANEL, IMMUNE STATUS Routine 01/02/2025 11:42 AM EST Encounter for preventive health examination HCG, TOTAL, QN Routine 01/02/2025 11:42 AM EST DUB (dysfunctional uterine bleeding) documented in this encounter Results * Measles, Mumps, and Rubella (MMR) Antibodies??(IgG) Panel, Immune Status (01/02/2025 11:42 AM EST) Mumps Virus IgG Antibody 171.00 AU/mL [facility] Comment:AU/mL Interpretation ------- <9.00 Not consistent with immunity9.00-10.99 Equivocal>10.99 Consistent with immunityThe presence of mumps IgG antibody suggests immunizationor past or current infection with mumps virus. Rubella IgG Antibody 4.72 Index [facility] Comment:Index Interpretation ----- <0.90 Not consistent with immunity 0.90-0.99 Equivocal > or = 1.00 Consistent with immunityThe presence of rubella IgG antibody suggestsimmunization or past or current infection withrubella virus.THIS TEST WAS PERFORMED AT:[facility] [place] [phone] PEACOCK MD Rubeola IgG (Measles) >300.00 AU/mL [facility] Comment:AU/mL Interpretation ----- <13.50 Not consistent with eftglxov06.50-16.49 Equivocal>16.49 Consistent with immunityThe presence of measles IgG suggests immunization orpast or current infection with measles virus.For additional information, please refer tohttp://education.iCurrent/faq/UOY333(This link is being provided for informational/educational purposes only.) Blood Venous blood specimen / Unknown 01/02/2025 11:42 AM EST 01/02/2025 1:10 PM EST us Daja To MD LAB BLOOD ORDERABLES Fin al Result [facility] [address] [place] [address] [phone] * hCG, Total, Quantitative (01/02/2025 11:42 AM EST) HCG Quantitative 9,148 mIU/mL [facility] Comment:Weeks post LMP Appro ximate hCG(Last Menstrual Period) Range (mIU/ml)3 - 4 weeks 9 - 1304 - 5 weeks 75 - 2,6005 - 6 weeks 850 - 20,8006 - 7 weeks 4000 - 100,2007 - 12 weeks 11,500 - 289,89825 - 16 weeks 18,300 - 137,69074 - 29 weeks (2nd trimester) 1,400 - 53,73366 - 41 weeks (3rd trimester) 940 - [...] ORDERABLES Fin al Result Performing Organization Address City/[facility]/ZIP Co de Phone Number [facility] [address] [place] [phone] * TSH W/Reflex to FT4 (01/02/2025 11:42 AM EST) TSH reflex Free T4 0.86 0.32 - 4.0 uIU/mL [facility] Blood Venous blood specimen / Unknown 01/02/2025 11:42 AM EST 01/02/2025 1:14 PM EST us Daja To MD LAB BLOOD ORDERABLES Fin al Result Performing Organization Address City/[facility]/ZIP Co de Phone Number [facility] [address] [place] [address] [phone] documented in this encounter Visit Diagnoses Diagnosis Encounter for preventive health examination- Primary DUB (dysfunctional uterine bleeding) Other disorder of menstruation and other abnormal bleeding from female genital tract Encounter for immunization documented in this encounter Care Teams Community Representative Relationship Specialty Start Date End Date Daja To MD [address] [place] [address] PCP - General Family Medicine 07/12/19 documented as of this encounter
--- OUTSIDE RECORDS SUMMARY | 2025-01-07 16:57 | XMS_ITS | Encounter Summary ---
Author Organization [employer] Address [address] [facility] [address] [place] [address] Care Team Providers Care Vice President Regulatory Name Role Phone Daja To MD Primary [...] Info) Description 02/01/2025 2:30 PM EDT Nutrition [facility] DIABETES/NUTRITION [address] [place] [address] Carol Farah, PRISCILLA [address] [place] [address] 02/25/2025 1:00 PM EDT Office Visit [facility] OPTOMETRY [address] [place] [address] Luke, Abby, OD [address] [place] [address] documented as of this encounter Visit Diagnoses Not on filedocumented in this encounter Care Teams Vice President Regulatory Relationship Specialty Start Date End Date Daja To MD [address] [place] [address] PCP - General Family Medicine 07/12/19 documented as of this encounter
[2025-01-07 17:18] LABS: Alanine Aminotransferase 14 U/L (0-31); Albumin Level 3.8 g/dL (3.5-5.0); Alkaline Phosphatase 49 U/L (39-117); Anion Gap 11 (12-20); Aspartate Amino Transferase 19 U/L (5-31); Blood Urea Nitrogen 8 mg/dL (9-16); Calcium 8.7 mg/dL (8.4-10.2); Carbon Dioxide 23 mmol/L (22-29); Chloride 108 mmol/L (96-108); Cholesterol 164 mg/dL (<200); Estimated Glomerular Filt Rate > 60; Glucose Random 102 mg/dL (60-115); HDL Cholesterol 51 mg/dL (>40); LDL Cholesterol Calculated 99 mg/dL (<100); Potassium 3.4 mmol/L (3.3-5.1); Sodium 139 mmol/L (135-145); Total Protein 7.4 g/dL (6.5-8.0); Triglycerides 71 mg/dL (<150)
[2025-01-07 17:59] LABS: Reflex LDLD? No
[2025-01-07 18:00] LABS: Vitamin D 25-OH Total 27.5 ng/mL (>30)
[2025-01-07 18:18] LABS: HCG Quantitative 23509 mIU/mL
== END 2025-01-07 14:49 | disposition home or self-care (01) ==
LOC: HO.HHCL 14:48
PROVIDERS: Visit Provider Internal Medicine
DX: N93.8 Other specified abnormal uterine and vaginal bleeding (principal); Z68.41 Body mass index [BMI] 40.0-44.9, adult; E66.01 Morbid (severe) obesity due to excess calories; E66.813 Obesity, class 3
CPT/HCPCS: 36415; 80053; 80061; 82306; 84702

== ENCOUNTER 2025-04-11 09:39 | Outpatient (REF) | payer MEDICAID, SELFPAY ==
--- OUTSIDE RECORDS SUMMARY | 2025-04-11 13:04 | XMS_ITS | Encounter Summary ---
Author Organization [employer] Address [address] [place] [address] [address] [place] [address] Care Team Providers Care Narrative Writer Name Role Phone Daja To MD Primary Care Provider + Encounter Details Date Type Department Care Team (Latest Contact Info) Description 01/25/2022 Abstract [facility] Dental, Provider, DDS Social History Tobacco Use Types Packs/Day Years Used Date Smoking Tobacco: Never Assessed Comments Unknown Sex and Gender Information Value Date Recorded Sex Assigned at Female 08/30/2022 10:17 AM EDT Legal Sex Female 10:17 AM EDT Gender Identity Female 08/30/2022 10:17 AM EDT Sexual Orientation Straight 08/30/2022 10 :17 AM EDT documented as of this encounter Plan of Treatment Not on file documented as of this encounter Visit Diagnoses Not on filedocumented in this encounter Care Teams Narrative Writer Relationship Specialty Start Date End Date Daja To MD [address] [place] [phone] PCP - General Family Medicine 07/12/19 documented as of this encounter
[2025-04-17 09:09] LABS: HPV Genotype 16 Negative (Negative); HPV Genotype 18 Negative (Negative); HPV High Risk Negative (Negative)
== END 2025-04-11 09:40 | disposition home or self-care (01) ==
LOC: HO.LNP 09:39
PROVIDERS: PCP Internal Medicine; Visit Provider Obstetrics & Gynecology
DX: N87.1 Moderate cervical dysplasia (principal)
CPT/HCPCS: 57454; 87626; 88175; 88305; 99212

== ENCOUNTER 2025-04-11 09:39 | Outpatient (AMB) | payer MEDICAID, SELFPAY ==
--- NOTE | 2025-04-11 09:43 | A.OFFVIS_ITS ---
Vital Signs 04/11/25 09:50 Height 4 ft 10.5 in Weight 207 lb BMI 42.5 BP 132/70 Intake Visit Reasons: colpo/cotest Environmental Health Technician: Environmental Health Technician Present (June Butler) Accompanied by: Self / Same As Patient Allergies No Known Allergies [No Known Allergies*] Allergy (Verified 04/11/25 09:51) HPI Comments Details: Presenting for six-months co testing/colpo biopsy ECC. The patient had LGSIL HPV positive in 03/23 07/24 RADHA 2 on colpo biopsy 09/01 LEEP cone pathology= RADHA 1 positive margins no evidence of RADHA 2 [facility] Medical History Morbid obesity with BMI of 45.0-49.9, adult Surgical History Hx of section Social History Are you a primary hearing care practitioner to a significant other at home: No Do you presently have visiting nurse or other home services: No Alcohol intake: current Alcohol intake frequency: holidays/special occasions only Patient Tobacco Use Status: Current everyday Tobacco user Cigarettes Per Day: 7 Sexual orientation: Straight/Heterosexual Gender identity: Female Female Reproductive History Menstrual Age of Menarche: 11 Review of Systems Const All systems reviewed & are unremarkable except as noted in HPI and below Reports as per HPI and Reports no additional complaints GI Reports no additional complaints Reports no additional complaints Office Procedures Colposcopy Colposcopy: Pre-Procedure Counseling: Before beginning the procedure, I conducted comprehensive counseling with the patient. We thoroughly discussed the procedure itself, including its details, alternatives, and all associated risks. This included but not limited to the following complications such as bleeding, infection, and injury to the vagina, bladder, and vessels, as well as the potential need for transfusion with all its associated risks. Subsequently, the patient sign the consent. Pap smear result: History of RADHA 2 in 09/23 status post LEEP with RADHA 1 and no evidence of RADHA 2. Urine test in office = Negative Procedure: During the procedure, the following steps were performed: A speculum was inserted, and acetic acid was applied. Colposcopy was conducted, allowing visualization of the transformation zone. Acetowhite lesions were identified at the 9+ 11 o'clock position. Cervical biopsies were obtained from the 9+ 11 o'clock position, followed by an endocervical curettage (ECC). Vaginoscopy of the upper vagina revealed no evidence of aceto-white lesions. Hemostasis was achieved using Monsel solution, and the patient tolerated the procedure well. Post-Procedure Instructions: The patient was advised to promptly contact the office or the after hours answering service or go to the emergency room if experiencing a temperature exceeding 100.4?F, abdominal pain, nausea/vomiting, or bleeding. Additionally, the patient was instructed to abstain from vaginal intercourse and bathtub use. The patient confirmed understanding of these instructions. Discharge Instructions: The patient was instructed to schedule a follow-up appointment in 2 weeks for further evaluation and management. Please note that this note was generated using a voice recognition program, and errors may have occurred during business taxes specialist. [id number] of cervix including upper vagina with biopsy and ECC Procedure code (CPT) selection complete Assessment & Plan Assessment & Plan (1) ARDHA II (cervical intraepithelial neoplasia II): Comment: Status post LEEP cone with RADHA 1 positive margins no evidence of RADHA 2 Code(s): N87.1 - Moderate cervical dysplasia Category: Medical Plan: Co testing done, colpo biopsy ECC done, see procedure note Orders: Orders AMB Colposcopy Today N87.1 - Moderate cervical dysplasia Coding Level of Care Code Est Pt Level 3 (98790) Procedure Only Diagnoses RADHA II (cervical intraepithelial neoplasia II) N87.1 CPT Codes Colposcopy - CPT: 47830-[id number] of cervix including upper vagina with biopsy and ECC ([id number])
[2025-04-11 09:50] VITALS: BP 132/70; BMI 42.5
== END 2025-04-11 10:03 | disposition home or self-care (01) ==
LOC: HO.HWS 09:40
PROVIDERS: PCP Internal Medicine; Visit Provider Obstetrics & Gynecology
DX: R87.612 Low grade squamous intraepithelial lesion on cytologic smear of cervix (LGSIL) (principal)
CPT/HCPCS: 57454; 99213

== ENCOUNTER 2025-05-10 09:32 | Outpatient (AMB) | payer MEDICAID, SELFPAY ==
--- OUTSIDE RECORDS SUMMARY | 2025-05-10 09:48 | XMS_ITS | Data Portability ---
Author Organization ID - [facility], Allergy Address [address] [address] Care Team Providers Care Tax Map Technician Name Role Phone DUANE MARRERO Primary Care Provider Assessment Encounter Date Assessment Date Assessment LastModified by Organization Details LastModified Time 09/11/2024 09/11/2024 Patient's history is consistent with a right sudden sensorineural hearing loss affecting the right ear about 2 years ago which has remained stable ever since. 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 [email or web address] Not available 09/11/2024 11:36:06 10/18/2024 10/18/2024 Patient [...] x 1.2 cm. This is outside the pzsub-ni-lmac on postcontrast imaging. Visualized portions of the [...] the lesion and need for additional procedures [email or web address] Not available 10/18/2024 09:04:24 12/24/2024 12/24/2024 No evidence of recurrent inflammatory polyps. Suggest saline solution 4 times daily Flonase 2 sprays each nostril once daily and follow-up in 4 months with flexible fiberoptic exam to make sure no recurrence of the polyp along the posterior aspect of the inferior turbinate [email or web address] Not available 12/24/2024 16:14:21 04/24/2025 04/24/2025 1. Excision of polypoid lesion No recurrence observed upon follow-up. Patient reports normal nasal function and absence of obstruction or breathing difficulties. Monitoring continues. 2. Allergic rhinitis Swollen nasal membranes indicative of allergic responses. Advised use of Flonase nasal spray to reduce swelling and alleviate eye symptoms. Consider allergy testing if symptoms persist. 3. Sudden hearing loss Patient received a hearing aid after experiencing sudden hearing loss. Follow-up with [facility] continues for assessment and management. [email or web address] Not available 04/24/2025 15:20:22 Plan of Treatment Reminders Order Date Submit Date Provider Last Modified By Organization Details Last Modified Time Details Appointments Establish ed 30 2025 02:00P Karsten ACOSTA MD Not available Not available Not available Lab None recorded. Referral None recorded. Procedures None recorded. Surgeries endoscopy , nasal/sin us, surgical, with biopsy, polypecto my or debrideme nt (SURG) 2023 024 [email or web address] Not available 10/18/2024 09:12:39 Imaging MRI, brain + internal auditory canal, w/wo contrast - MRI, BRAIN + INTERNAL AUDITORY CANAL, W/WO CONTRAST 2023 024 [facility] ([facility]), [address], [place], [address], 09/25/2024 16:10:25 Medication Orders fluticaso ne propionat e 50 mcg/actua tion nasal spray,froy pension 2024 025 [id number], [address] [place], [place], [id number], 04/24/2025 15:19:59 Patient TargetsNo targets recorded. Patient Instructions Encounter Date Encounter Id Patient Instructions Last Modified By Organization Details Last Modified Time 04/24/2025 [id number] Please note: Parts of this encounter note have been generated by AI based on audio conversation. Patient consent was required prior to utilizing this technology. Content review was required prior to finalizing the note. [email or web address] Not available 04/24/2025 15:18:30 Reason for Referral None Reported. Results Created Date Observation Date Name Description Value Unit Range Abnormal Flag Note LastModifiedBy Organization Detail LastModifiedTime 09/11/20 24 audio gram No observ ation record ed. [email or web address] Not Available 08/31 14:01:29 09/25/20 24 09/21/2024 MRI, brain + brain stem, w/wo contr ast [facility] te MRI- [facility] Access ion Number : [id number] t Name: Madhav Bennett Medica l Record Number : [id number] Date of : 1984 Date of Exam: 2023 Referr ing Physic [place]: Candice Dos Santos re Ear Nose [address] [place] [address] Exam: MR Brain (C-/C+ ) CPT 15176 [facility] (C-/C+ ) CPT 26290 INDICA TION / CLINIC AL QUESTI ON: [...] or abnorm al enhanc ement in the program management intern al audito ry canals or cerebe [...] , at the juncti on of the 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 Electr onical ly Signed By: Court Horton MD [address] [facility] ([facility]) [address] [facility], [place], [address], 10/03/2024 18:04:13 Result Notes Documentation Provider Name and Address Organization Details Recorded Time Mri, Brain + Brain Stem, W/wo Contrast : [facility] Accession Number: [id number] Patient Name: Sharon Bennett Date of : 1985 Date of Exam: 09-21-2024 Referring Physician: Desiree Dos Santos [facility] [address] [place] [address] Exam: MR Brain (C-/C+) CPT 78160 Room Description: [facility] 3.0T MR Brain (C-/C+) CPT 98572 INDICATION / CLINICAL QUESTION: Reason For Exam: Snsrnrl hear loss, uni, right ear, w unrestr hear cntra side, Clinical Indication: Asymmetric sensorineural hearing loss TECHNIQUE: Multiplanar, multisequence MRI of the brain was performed with and without intravenous contrast. 19 mL Dotarem intravenous contrast was administered. COMPARISON: None. FINDINGS: IAC: There is no mass or abnormal enhancement in the internal auditory canals or cerebellopontine angles. Course and caliber of the 7th and 8th cranial nerves is normal bilaterally. Fluid signal is preserved in the inner ear structures bilaterally. Brainstem demonstrates normal signal. BRAIN and EXTRA-AXIAL SPACES: No significant abnormality of the visualized portions of the brain and extra-axial spaces. EXTRACRANIAL SOFT TISSUES: A nodule is mildly irregular shape in the region of the right choana, at the junction of the posterior right nasal cavity and nasopharynx, demonstrates mildly T2 hyperintense signal, measuring 1.3 x 1.2 cm. This is outside the bjocc-bx-hfer on postcontrast imaging. Visualized portions of the extracranial soft tissues are otherwise unremarkable. BONES: Visualized marrow signal is preserved. IMPRESSION: 1. No retrocochlear abnormality to explain the patient?s symptoms. 2. 1.3 cm mildly T2 hyperintense nodule in the region of the right choana is indeterminate, as the lesion is slightly irregular in contour and is mildly lower in signal on T2-weighted sequence than typical nasal polyps. Suggest correlation with direct inspection. A Non-Emergent actionable finding will be communicated to the ordering or responsible provider by the medical records department. Receipt of this communication by the responsible or ordering provider will be documented in [employer], message ID [id number]. Electronically Signed By: Jennie DOS SANTOS MD [address] [place],[address], [address], [place] - [facility] 10/03/2024 18:04:13 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 7606264433681 0 Active 2023 DESIREE DOSS ANTOS MD [address] [facility], [facility] [place], [address], [place] - [facility] 4 11:31:48 Sudden idiopathic hearing loss 471156025 Active 2023 DESIREE DOS SANTOS MD [address] [place], [facility] [place], [address], [place] - [facility] 4 11:31:52 Mass of nasal sinus 8415413863855 0 Active 2023 KEITH ACOSTA MD [address] [facility],[address], [facility] [place], [address], [place] - [facility] 4 09:04:48 Abnormal findings on diagnostic imaging of skull and head 961868612 Active 2023 KEITH ACOSTA MD [address] [facility],[address], [facility] [place], [address], [place] - [facility] [place] 4 09:04:58 Lesion of nasal cavity 5345715179519 90395 Active 2023 KEITH ACOSTA MD [address] [place], [facility] [place], [address], [place] - [facility] 4 09:05:13 Benign neoplasm of nose, middle ear and accessory sinuses 440496634 Active 2024 KEITH ACOSTA MD [address] [place] [place], [address], [place] - [facility] 5 16:14:25 Allergic rhinitis 49007162 Active 2024 KEITH ACOSTA MD 100 [facility],[address], [address], [place] - [facility] [place] 5 15:19:27 Problem Notes None recorded. Procedures Surgical History Date Name Laterality Status Provider Name and Address Organization Details Recorded Time 5 JMSNasal/Sinus Endoscopy completed KEITH HERNANDEZ MD [address] [facility],[address], [address], [place] - [facility] 04/24/2025 15:18:36 5 JMSNasal/Sinus Endoscopy completed KEITH HERNANDEZ MD 100 [facility],[address], [address], [place] - [facility] 12/24/2024 16:13:44 5 Nsl/sins ndsc surg bx polypc completed KEITH HERNANDEZ MD 100 [facility],[address], [address], [place] - [facility] 11/22/2024 12:51:30 5 Removal of intranasal lesion completed KEITH HERNANDEZ MD 100 [facility],[address], [address], [place] - [facility] 11/22/2024 12:52:10 4 JMSNasal/Sinus Endoscopy completed KEITH HERNANDEZ MD [address] [facility],[address], [address], [place] - [facility] 10/18/2024 09:06:54 section completed Duane Loya [place] - [facility] 09/11/2024 11:21:15 Imaging Results None recorded. Procedure Notes None recorded. Medical Equipment None Reported. Allergies No known drug allergies Medications Name Sig Start Date Stop Date Status Note LastModified by Organization Details LastModified Time nicotine (polacrilex ) 2 mg gum 04/24 completed Not Available Not Available Not Available ergocalcife rol (vitamin D2) 1,250 mcg (50,000 unit) capsule active Not Available Not Available Not Available norethindro ne (contracept mary ann) 0.35 mg tablet TAKE 1 TABLET BY MOUTH DAILY NEEDED active Not Available Not Available No t Available fluticasone propionate 50 mcg/actuati on nasal spray,suspe nsion SHAKE LIQUID AND USE 1 SPRAY IN EACH NOSTRIL EVERY DAY active Not Available Not Available No t Available Ventolin HFA 90 mcg/actuati on aerosol inhaler INHALE 2 PUFFS BY MOUTH EVERY 6 HOURS NEEDED FOR WHEEZING 09/11 completed Not Available Not Available Not Available Vitals Date Recorded Body height Body mass index (BMI) Body weight Provider Name and Address Organization Details Last Updated DateTime 12/24/2024 148.59 cm 41.1 kg/m2 86954.47 g Donnie Hair [place] - [facility] 12/24/2024 15:52:57 Date Recorded Body height Body mass index (BMI) Body weight Provider Name and Address Organization Details Last Updated DateTime 04/24/2025 148.59 cm 44.8 kg/m2 42563.14 g Nereida Alfaro [place] - [facility] 04/24/2025 15:05:59 Date Recorded Body height Body weight Provider Name and Address Organization Details Last Updated DateTime 09/11/2024 148.59 cm 55568.44 g Duane Loya [place] - [facility] 09/11/2024 11:08:01 Date Recorded Body height Body mass index (BMI) Body weight Provider Name and Address Organization Details Last Updated DateTime 10/18/2024 148.59 cm 41.1 kg/m2 70599.47 g Eliazar Andersen [place] - [facility] 10/18/2024 08:41:46 Social History None recorded. [...] Disorder N Anesthesia Complications N Heart Attack ([place]) N Other Skin Condition N Diabetes N [...] SNOMED-CT Code Diagnosis ICD10 Code Diagnosis Note [id number] DESIREE DOS SANTOS MD [facility] [address] [address] 09/11/2024 10:51:59 09/11/2024 11:37:03 Sensorineural hearing loss in right ear 7983910903 9100 H90.41 Sudden idi opathic hearing loss 572935331 H91.21 [id number] KEITH ARITA MD [facility] [address] [address] 10/18/2024 08:22:43 10/18/2024 09:11:26 Mass of nasal sinus 9481985011 9100 R22.0 Abnormal f indings on diagnostic imaging of skull and head 990105199 R93.0 Lesion of nasal cavity 6146415157 59654952 J34.89 [id number] KEITH ARITA MD [facility] [address] [address] 12/24/2024 15:38:34 12/24/2024 16:20:17 Benign neoplasm of nose, middle ear and accessory sinuses 977825343 D14.0 [id number] KEITH ARITA MD [facility] [address] [address] 04/24/2025 14:39:35 04/24/2025 15:20:41 History of neoplasm 534944096 Z86.018 Allergic rhinitis 439099 04 J30.89 Health Concerns Section Related Observation LastModified by Organization Detai ls LastModified Time None Recorded Concern Status LastModified by Organization Details LastModified Time None Recorded Advance Directives Directive None Recorded Payers Insurance Date Sequence Insurance Name Policy Number Policy Cifuentes Covered Member ID Cifuentes Member ID Guarantor Name 05/01/2025 1 [place] [facility] Sharon Bennett [id number] Sharon Bennett Notes Date Note Type Note Provider Name and Address Organization Details Recorded Time 09/11/2024 text/html Patient referred for evaluation of asymmetric hearing loss. Audiogram done previously at [facility] showed sensorineural hearing loss affecting the right ear greater than left. Patient was aware of the asymmetry over the past [...] or currently. DESIREE DOS SANTOS MD 100 [facility],[address], [address], [facility] - [facility] 09/11/2024 11:37:00 10/18/2024 text/html Patient seen [...] x 1.2 cm. This is outside the xzkhn-fs-bltt onpostcontrast imaging. Visualized portions of the extracranial softtissues are otherwise unremarkable. KEITH HERNANDEZ MD 100 [facility],[address], [address], [facility] - [facility] [place] 10/18/2024 09:07:40 12/24/2024 text/html Patient seen in follow-up for excision of a polypoid lesion from the posterior aspect of the right inferior turbinate. Pathology was consistent with an inflammatory polyp. Other than some crusting and blood around the time of the surgery she is doing quite well and breathing is much improved KEITH HERNANDEZ MD 100 [facility],[address], [address], [facility] - [facility] 12/24/2024 16:15:47 04/24/2025 text/html The patient is a 39-year-old female presenting for a follow-up after excision of a polypoid lesion from the right inferior turbinate conducted in October 2024. She reports resolution of nasal issues with no breathing difficulties and denies any obstruction or bleeding. She has some allergy symptoms manifested as nasal swelling and eye irritation due to environmental factors but are currently manageable. She also has a history of sudden hearing loss with intervention and monitoring at [facility] since August. She received a hearing aid and reports no changes in her hearing status since that evaluation. KEITH HERNANDEZ MD [address] [place] [address], [place], [address], [facility] - [facility] 04/24/2025 15:21:37 OBGyn Episode No OBEpisode recorded.
--- OUTSIDE RECORDS SUMMARY | 2025-05-10 09:48 | XMS_ITS | Encounter Summary ---
Author Organization [employer] Address [address] [place] [address] [address] [place] [address] Care Team Providers Care Accounts Manager Name Role Phone Daja To MD Primary Care Provider + Encounter Details Date Type Department Care Team (Latest Contact Info) Description 01/25/2022 Abstract [facility] CONVERSIONS Dental, Provider, DDS Social History [...] on filedocumented in this encounter Care Teams Accounts Manager Relationship Specialty Start Date End Date Daja To MD [address] [place] [id number] PCP - General Family Medicine 07/12/19 documented as of this encounter
--- NOTE | 2025-05-10 10:02 | MHC.OFFVIS ---
Intake Visit Reasons: Colpo results Accompanied by: Self / Same As Patient Allergies No Known Allergies (No Known Allergies*) Allergy (Verified 05/10/25 10:02) HPI Comments Details: Presenting post colpo for follow-up. The patient is doing well with no complaints. The pathology showed the following: A. Endocervix, curettage: Squamous epithelium with reactive changes; negative for dysplasia, and rare endocervical glandular epithelium; may not be business office representative of the endocervix. B. Cervix, 9:00, biopsy: Squamous mucosa; negative for dysplasia; no endocervical glandular component. C. Cervix, 11:00, biopsy: Squamous mucosa with hyperkeratosis and reactive changes; negative for dysplasia; no endocervical glandular component. Comment: The patient's concurrent negative Pap test ([id number]) concurs with the current biopsy Last co testing in 04/24 was negative [facility] Medical History (Updated 05/10/25 @ 10:16 by Harshil Turner MD) RADHA II (cervical intraepithelial neoplasia II) Morbid obesity with BMI of 45.0-49.9, adult Surgical History Hx of section Social History Are you a primary client care consultant to a significant other at home: No Do you presently have visiting nurse or other home services: No Alcohol intake: current Alcohol intake frequency: holidays/special occasions only Patient Tobacco Use Status: Current everyday Tobacco user Cigarettes Per Day: 7 Sexual orientation: Straight/Heterosexual Gender identity: Female Female Reproductive History Menstrual Age of Menarche: 11 Review of Systems Const All systems reviewed & are unremarkable except as noted in HPI and below Reports as per HPI and Reports no additional complaints GI Reports no additional complaints Reports no additional complaints Assessment & Plan Assessment & Plan (1) RADHA II (cervical intraepithelial neoplasia II): Comment: Status post LEEP cone with RADHA 1 positive margins no evidence of RADHA 2 04/24 negative co testing, negative colpo biopsy Code(s): N87.1 - Moderate cervical dysplasia Category: Medical Plan: Discussed with the patient the pathology results of the co testing and colposcopy biopsies & endocervical curettage ( negative). Discussed with the patient the sensitivity specificity, positive and negative predictive value in detecting cervical cancer in addition discussed the regression, persistence and progression rates. Recommended co-testing in 12 months, if cytology and or HPV are abnormal will proceed was colposcopy biopsy and endocervical curettage. Instructions given to the patient to schedule a co test appointment in 1 year. All questions answered the patient verbalized understanding. Coding Level of Care Code Est Pt Level 3 (22224) Diagnoses RADHA II (cervical intraepithelial neoplasia II) N87.1
== END 2025-05-10 10:21 | disposition home or self-care (01) ==
LOC: HO.HWS 09:32
PROVIDERS: PCP Internal Medicine; Visit Provider Obstetrics & Gynecology
DX: N87.1 Moderate cervical dysplasia (principal)
CPT/HCPCS: 99213

== ENCOUNTER → 2025-05-10 09:32 | Outpatient (BNVA) | payer MEDICAID, SELFPAY | PROVIDERS: PCP Internal Medicine; Visit Provider Obstetrics & Gynecology | DX: Z71.2 Person consulting for explanation of examination or test findings (principal); N87.1 Moderate cervical dysplasia | CPT/HCPCS: 99212 ==